=== PATIENT | male | born 1955 | race Caucasian/White ===

== ENCOUNTER 2016-09-16 14:46 | Emergency (ER) | payer OTHER ==
[~2016-09-16] VITALS: Ht 170.2 cm; Wt 70.3 kg
[~2016-09-16 14:46] MED LIST: ADVIL PM 38 MG-1 TAB PO; ALPRAZOLAM0.5 MG PO; AMBIEN5 M1 PO; AMLODIPINE BES2.5 MG PO; AMLODIPINE BESYL5 M1 PO; AMLODIPINE10 MG PO; ASPIR 8181 MG PO; BACLOFEN10 M1 PO; BD INSULIN; BENTYL20 M1 PO; BYSTOLIC10 M1 PO; BYSTOLIC10 MG PO; BYSTOLIC20 M1 PO; BYSTOLIC20 MG PO; CALCITRIOL0.25 MCG PO; CAPTOPRIL25 MG PO; CAPTOPRIL50 MG PO; CIPROFLOXACIN500 M2 PO; CITRATE OF MAG300 ML PO; CONZIP100 MG PO; CREON DR 36,001 EACH PO; DICLOFENAC SODI75 M2 PO; DILAUDID2 MG PO; FLEXERIL 10MG T10 MG PO; FLEXERIL10 MG PO; FREESTYLE; FREESTYLE LITE TEST; GABAPENTIN100 M2 PO; GABAPENTIN300 M2 PO; GABAPENTIN300 MG PO; GOLYTELY PACKE1 EACH PO; HUMULIN 70100 UNIT/1 SC; IBU600 MG PO; LIDODERM 5% PAT1 PAT TOP; LOMOTIL 0.025 M1 TAB PO; MAGNESIUM CITR296 ML PO; MAGNESIUM OXID400 MG PO; MAGNESIUM400 M1 PO; MOBIC15 M1 PO; MOTRIN 600 MG600 MG PO; MOTRIN800 MG PO; NORCO 325 MG-51 TAB PO; NORVASC 5MG TAB5 MG PO; NORVASC10 M1 PO; NOVOLIN 70100 UNIT/1 SQ; NOVOLIN R100 UNIT/1 SQ; ORPHENADRINE C100 MG PO; PERCOCET 325 MG1 TA2 PO; PERCOCET 5-3251 EACH PO; POTASSIUM CHLO20 ME4 PO; PREDNISONE 20MG20 MG PO; PRILOSEC OTC20 M1 PO; PRILOSEC OTC20 MG PO; PROCHLORPERAZIN25 M1 PR; PROCHLORPERAZIN25 MG PR; PYRIDIUM100 M1 PO; REGLAN10 M1 PO; REGLAN10 MG PO; SKELAXIN800 MG PO; TESSALON PERLE100 MG PO; TIZANIDINE4 MG PO; TOPROL XL25 M1 PO; TORADOL10 MG PO; TRAMADOL HCL50 M1 PO; TRAMADOL50 MG PO; TYLENOL WITH C1 EACH PO; VICODIN5-300 PO; VITAMIN D1000 IU PO; VOLTAREN100 GM TOP; ZITHROMAX Z PA250 MG PO; ZOFRAN 4 MG TABL4 MG PO; ZOFRAN ODT4 M1 SL; ZOFRAN ODT4 MG PO; ZOFRAN4 M2 SL; ZOFRAN4 MG PO; [UNRECOGNIZED DRUG - CODE] PO; [UNRECOGNIZED DRUG - CODE] SC; [UNRECOGNIZED DRUG - OTHER]
--- NOTE | 2016-09-16 16:24 | ED GI/GU/ABDOMINAL COMPLAINT ---
History of Present Illness General Chief Complaint: Abdominal Pain/Flank Pain Stated Complaint: ABD PAIN Vital Signs & Intake/Output Vital Signs & Intake/Output Vital Signs Date Time Temp Pulse Resp B/P Pulse O2 O2 Flow FiO2 Ox Delivery Rate 09/16 1451 95.9 98 20 160/105 98 Room Air Allergies Coded Allergies: NO KNOWN ALLERGIES (06/22/16) Reconcile Medications Alprazolam 0.25 MG TABLET 1 TAB PO TID ANXIETY (Reported) Amlodipine Besylate 10 MG TABLET 1 TAB PO DAILY HEART HEALTH (Reported) Aspirin (Ecotrin) 81 MG TABLET.DR 1 TAB PO DAILY HEART HEALTH (Reported) Calcitriol 0.25 MCG CAPSULE 1 CAP PO DAILY BONES (Reported) Captopril 50 MG TAB 1 TAB PO BID BP (Reported) Cholecalciferol (Vitamin D3) 1,000 IU TAB 1,000 IU PO DAILY VITAMIN D SUPPLEMET (Reported) Diclofenac Sodium (Voltaren) 100 GM GEL..GRAM. 1 GM TOP 4 TIMES/DAY ARTHRITIS (Reported) apply to affected area(s) Dicyclomine HCl (Bentyl) 20 MG TABLET 1 TAB PO TID ABD PAIN Gabapentin 300 MG CAPSULE 1 CAP PO TID NERVE PAIN/MENTAL HEALTH (Reported) Humulin 70-30 (Humulin 70-30 Vial) 100 UNIT/1 ML VIAL 10 UNITS SC QAM AC Diabetes (Reported) Humulin 70-30 (Humulin 70-30 Vial) 100 UNIT/1 ML VIAL 12 UNIT SC QPM AC DIABETES (Reported) Lipase/Protease/Amylase (Kajal Roldan 36,000 Units Capsule) 1 EACH CAPSULE. 1 CAP PO TID PANCREASE (Reported) Magnesium Oxide (Magnesium) 400 MG CAPSULE 1 CAP PO DAILY MAG Metoclopramide HCl (Reglan) 10 MG TABLET 1 TAB PO TID PRN NAUSEA 30 minutes before meals and bedtime Nebivolol HCl (Bystolic) 20 MG TABLET 1 TAB PO DAILY BP (Reported) Omeprazole Magnesium (Prilosec Otc) 20 MG TABLET.DR 1 TAB PO DAILY STOMACH PAIN Ondansetron (Zofran Odt) 4 MG TAB.RAPDIS 1 TAB SL TID PRN nausea Prochlorperazine 25 MG SUPP.RECT 1 SUPP HI PRN N/V (Reported) Tramadol HCl 50 MG TABLET 1 TAB PO BIDP PRN PAIN (Reported) Zolpidem Tartrate (Ambien) 5 MG TABLET 1 TAB PO QPMP insomnia May repeat in 45 minutes if no effect on sleep Triage Note: 61 REPORTS N/V X 2-3 DAYS. STATES HE WENT TO DR JENKINS'S OFFICE AND WAS TOLD TO COME TO ED. AFEBRILE. 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 History of MRSA: No History of VRE: No History of CDIFF: No Surgical History Surgical History: appendectomy, DEVIATED SEPTUM,HERNIA Psychosocial History Who do you live with Patient/Self Services at Home None What is your primary language Welsh Tobacco Use: Current Daily Use Daily Tobacco Use Amount/Type: =< 4 Cigarettes daily Family History Family History, If Any: FATHER FH: diabetes mellitus FH: renal failure MOTHER FH: hyperlipidemia Relation not specified for: FH: CHF (congestive heart failure) Departure Departure Condition: Stable Referrals: BECKA ETIENNE MD (PCP/Family) Departure Forms: Customer Survey General Discharge Information
--- NOTE | 2016-09-16 16:33 | ED GI/GU/ABDOMINAL COMPLAINT ---
See Addendum History of Present Illness General Chief Complaint: Abdominal Pain/Flank Pain Stated Complaint: ABD PAIN Source: patient Exam Limitations: no limitations Vital Signs & Intake/Output Vital Signs & Intake/Output Vital Signs Date Time Temp Pulse Resp B/P Pulse O2 O2 Flow FiO2 Ox Delivery Rate 09/16 1832 98 Room Air Room Air 09/16 1832 98.2 80 16 148/88 98 Room Air Room Air 09/16 1720 97.9 84 20 168/100 09/16 1451 95.9 98 20 160/105 98 Room Air Allergies Coded Allergies: NO KNOWN ALLERGIES (06/22/16) Reconcile Medications Alprazolam 0.25 MG TABLET 1 TAB PO TID ANXIETY (Reported) Amlodipine Besylate 10 MG TABLET 1 TAB PO DAILY HEART HEALTH (Reported) Aspirin (Ecotrin) 81 MG TABLET.DR 1 TAB PO DAILY HEART HEALTH (Reported) Calcitriol 0.25 MCG CAPSULE 1 CAP PO DAILY BONES (Reported) Captopril 50 MG TAB 1 TAB PO BID BP (Reported) Cholecalciferol (Vitamin D3) 1,000 IU TAB 1,000 IU PO DAILY VITAMIN D SUPPLEMET (Reported) Diclofenac Sodium (Voltaren) 100 GM GEL..GRAM. 1 GM TOP 4 TIMES/DAY ARTHRITIS (Reported) apply to affected area(s) Dicyclomine HCl (Bentyl) 20 MG TABLET 1 TAB PO TID ABD PAIN Gabapentin 300 MG CAPSULE 1 CAP PO TID NERVE PAIN/MENTAL HEALTH (Reported) Humulin 70-30 (Humulin 70-30 Vial) 100 UNIT/1 ML VIAL 10 UNITS SC QAM AC Diabetes (Reported) Humulin 70-30 (Humulin 70-30 Vial) 100 UNIT/1 ML VIAL 12 UNIT SC QPM AC DIABETES (Reported) Lipase/Protease/Amylase (Kajal Roldan 36,000 Units Capsule) 1 EACH CAPSULE. 1 CAP PO TID PANCREASE (Reported) Magnesium Oxide (Magnesium) 400 MG CAPSULE 1 CAP PO DAILY MAG Metoclopramide HCl (Reglan) 10 MG TABLET 1 TAB PO TID PRN NAUSEA 30 minutes before meals and bedtime Nebivolol HCl (Bystolic) 20 MG TABLET 1 TAB PO DAILY BP (Reported) Omeprazole Magnesium (Prilosec Otc) 20 MG TABLET. 1 TAB PO DAILY STOMACH PAIN Ondansetron (Zofran Odt) 4 MG TAB.RAPDIS 1 TAB SL TID PRN nausea Prochlorperazine 25 MG SUPP.RECT 1 SUPP [place] PRN N/V (Reported) Tramadol HCl 50 MG TABLET 1 TAB PO BIDP PRN PAIN (Reported) Zolpidem Tartrate (Ambien) 5 MG TABLET 1 TAB PO QPMP insomnia May repeat in 45 minutes if no effect on sleep Triage Note: 61 REPORTS N/V X 2-3 DAYS. STATES HE WENT TO DR JENKINS'S OFFICE AND WAS TOLD TO COME TO ED. AFEBRILE. Triage Nurses Notes Reviewed? yes Onset: Abrupt Duration: day(s):, constant Timing: recent history Quality/Severity: moderate, sharpness, severe Location: generalized abdomen Radiation: no radiation Activities at Onset: none Prior Abdominal Problems: none No Modifying Factors: none HPI: 61-year-old male comes into emergency room with complaints of general abdominal pain. Patient has been seen here many times in the same symptoms. Denies any fever. Some intermittent vomiting. Denies any other associated symptoms. Nothing seems to make them better or worse. (SINDHU RUBIO) Past History Travel History Traveled to [place] past 21 day No Medical History Any Pertinent Medical History? 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 No (SINDHU RUBIO) Review of Systems Review of Systems Constitutional: Reports: no symptoms. EENTM: Reports: no symptoms. Respiratory: Reports: no symptoms. Cardiovascular: Reports: no symptoms. GI: Reports: see HPI. Genitourinary: Reports: no symptoms. Musculoskeletal: Reports: no symptoms. Skin: Reports: no symptoms. Neurological/Psychological: Reports: no symptoms. Hematologic/Endocrine: Reports: no symptoms. Immunologic/Allergic: Reports: no symptoms. All Other Systems: Reviewed and Negative (SINDHU RUBIO) Physical Exam Physical Exam General Appearance: well developed/nourished, no apparent distress, alert Head: atraumatic, normal appearance Eyes: Bilateral: normal appearance. Ears, Nose, Throat, Mouth: hearing grossly normal, moist mucous membrane Neck: normal inspection, full range of motion Respiratory: normal breath sounds, no respiratory distress Cardiovascular: regular rate/rhythm Gastrointestinal: normal bowel sounds, soft, tenderness Back: normal inspection, normal range of motion Extremities: normal range of motion Neurologic/Psych: awake, alert, oriented x 3, normal gait, normal mood/affect Skin: intact, normal color Core Measures ACS in differential dx? No Severe Sepsis Present: No Septic Shock Present: No (SINDHU RUBIO) Progress Differential Diagnosis: AAA, AMI, appendicitis, biliary colic, bowel obstruction , colon cancer, cholecystitis, diverticulitis, gastritis, hepatitis, hernia, hemorrhoids, ischemic bowel, orchitis, pancreatitis, prostatitis, peptic ulcer, PUD/GERD, perforated viscous, pyelonephritis, SBO, ureterolithiasis, urinary retention, urethritis, UTI/pyelo Plan of Care: Orders Procedure Date/time Status URINALYSIS 09/16 1631 Complete LIPASE 09/16 1631 Complete COMPREHENSIVE METABOLIC PANEL 09/16 1631 Complete CBC WITHOUT DIFFERENTIAL 09/16 1631 Complete AMYLASE 09/16 1631 Complete Laboratory Tests 09/16/16 1640: Urine Color YEL, Urine Clarity CLEAR, Urine pH 7.0, Ur Specific [place] 1.015, Urine Protein TRACE H, Urine Ketones NEG, Urine Nitrite NEG, Urine Bilirubin NEG, Urine Urobilinogen 0.2, Ur Leukocyte Esterase NEG, Ur Microscopic SEDIMENT EXAMINED, Urine RBC RARE, Ur Epithelial Cells RARE, Urine Hemoglobin NEG, Urine Glucose 500 H 09/16/16 1633: Anion Gap 13, Estimated GFR 32 L, BUN/Creatinine Ratio 11.4, Glucose 303 H, Calcium 9.7, Total Bilirubin 0.6, AST 26, ALT 27, Alkaline Phosphatase 91, Total Protein 7.3, Albumin 4.4, Globulin 2.9, Albumin/Globulin Ratio 1.5, Amylase 49, Lipase 42, CBC w Diff NO MAN DIFF REQ, RBC 4.40 L, MCV 92.2, MCH 31.4 H, RDW 13.0, MPV 8.4, Gran % 74.0, Lymphocytes % 14.9 L, Monocytes % 9.4 H, Eosinophils % 1.3, Basophils % 0.4, Absolute Granulocytes 5.4, Absolute Lymphocytes 1.1 L, Absolute Monocytes 0.7 H, Absolute Eosinophils 0.1, Absolute Basophils 0, PUBS MCHC 34.0 Diagnostic Imaging: Viewed by Me: CT Scan. Discussed w/RAD: CT Scan. Radiology Impression: EXAM TYPE: CAT - CT ABD & PELVIS W/O IV CONTRAS EXAMINATION: CT ABDOMEN AND PELVIS WITHOUT CONTRAST CLINICAL INFORMATION: Abdominal pain COMPARISON: CT scan abdomen pelvis 08/09/2016 TECHNIQUE: Multidetector volumetric imaging was performed from the superior aspect of the liver through the pubic symphysis. Sagittal and coronal reformatted images were obtained on the technologist's workstation. No oral or intravenous contrast DLP: 271.91 mGy-cm. FINDINGS: LUNG BASES: The visualized lung bases are unremarkable. LIVER, GALLBLADDER, AND BILIARY TREE: The liver is normal in size, shape, and attenuation. No focal hepatic lesion or biliary ductal dilatation is present. The gallbladder is unremarkable with no evidence of radiopaque gallstones, gallbladder wall thickening, or obvious pericholecystic inflammatory changes. PANCREAS: Numerous coarse calcifications of the pancreatic head and uncinate process consistent with chronic pancreatitis. The body and tail the pancreas is atrophic. No acute inflammation. No edema or fluid collections. SPLEEN: Unremarkable. ADRENAL GLANDS: Unremarkable. KIDNEYS AND URETERS: Numerous bilateral renal cysts with multiple small parenchymal calcifications consistent with polycystic kidney disease. No hydronephrosis. No ureteral stone. BLADDER: Unremarkable. GASTROINTESTINAL TRACT: No acute change. No bowel obstruction. No bowel wall thickening or edema. Moderate volume of stool throughout colon. The appendix not seen. No inflammatory change of mesentery. Small bowel loops are unremarkable. ABDOMINAL WALL: Small fat-containing umbilical hernia. LYMPH NODES : Normal. VASCULAR: Unremarkable. PELVIC VISCERA: Unremarkable. OSSEOUS STRUCTURES: Degenerative change of the spine with endplate spurs and disc height narrowing facet joint arthrosis. Mild joint narrowing of the hips bilateral. IMPRESSION: No acute change of the abdomen or pelvis. Coarse calcifications of the pancreas consistent with sequela from chronic pancreatitis without evidence of an acute inflammation. Polycystic kidney disease. DICTATED BY: ARTHUR ARMSTRONG MD DATE/TIME DICTATED:09/16/16 1723 Initial ED EKG: none Comments: 09/16/2016 6:17:15 PM Patient initially said when he was here that he was going to hurt himself because he started the pain. Patient reports that he is not serious about this and has no intention of hurting himself or anybody else. Patient's labs are normal baseline. Patient seen by Dr. Almanza. Patient has a normal affect. Patient shows good insight. 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 I have also reviewed all the pertinent lab results and diagnostic results. I agree with the findings and the plan of care as documented in the PA's/ADJUNCT WRITING INSTRUCTOR's documentation. [] I have reviewed the ED Record and agree with the PA's/ADJUNCT WRITING INSTRUCTOR's documentation. [] Additions or exceptions (if any) to the PAs/ADJUNCT WRITING INSTRUCTOR's note and plan are summarized below: [] 09/16/16 6:30 PM I have seen and personally examined the patient and I agree with the PAs evaluation. Now at 6:23 PM he is awake alert oriented 3. He denies suicidal ideation or significant depression. He has contracted with me for safety and said he will return to the emergency department should he feel worse in any way. No crisis consult was obtained based on my evaluation. (ARTEMIO ALMANZA DO
[2016-09-16 16:45] LABS: ABSOLUTE BASOPHIL COUNT 0 /CUMM (0.0-0.2); ABSOLUTE EOSINOPHIL COUNT 0.1 /CUMM (0.0-0.7); ABSOLUTE GRANULOCYTE CT 5.4 /CUMM (1.4-6.5); ABSOLUTE LYMPH COUNT 1.1 /CUMM (1.2-3.4); ABSOLUTE MONOCYTE COUNT 0.7 /CUMM (0.10-0.60); BASOPHIL % 0.4 % (0.0-2.0); EOSINOPHIL % 1.3 % (0-5); HEMATOCRIT 40.6 % (42-52); MEAN CORPUSCULAR HGB 31.4 PG (27.0-31.0); MEAN CORPUSCULAR VOLUME 92.2 FL (80.0-94.0); MEAN PLATELET VOLUME 8.4 FL (7.4-10.4); PLATELET COUNT 216 /CUMM (130-400); WHITE BLOOD CELL COUNT 7.2 /CUMM (4.8-10.8)
--- NOTE | 2016-09-16 17:33 | CT SCAN REPORT ---
EXAMINATION: CT ABDOMEN AND PELVIS WITHOUT CONTRAST CLINICAL INFORMATION: Abdominal pain COMPARISON: CT scan abdomen pelvis 08/09/2016 TECHNIQUE: Multidetector volumetric imaging was performed from the superior aspect of the liver through the pubic symphysis. Sagittal and coronal reformatted images were obtained on the technologist's workstation. No oral or intravenous contrast DLP: 271.91 mGy-cm. FINDINGS: LUNG BASES: The visualized lung bases are unremarkable. LIVER, GALLBLADDER, AND BILIARY TREE: The liver is normal in size, shape, and attenuation. No focal hepatic lesion or biliary ductal dilatation is present. The gallbladder is unremarkable with no evidence of radiopaque gallstones, gallbladder wall thickening, or obvious pericholecystic inflammatory changes. PANCREAS: Numerous coarse calcifications of the pancreatic head and uncinate process consistent with chronic pancreatitis. The body and tail the pancreas is atrophic. No acute inflammation. No edema or fluid collections. SPLEEN: Unremarkable. ADRENAL GLANDS: Unremarkable. KIDNEYS AND URETERS: Numerous bilateral renal cysts with multiple small parenchymal calcifications consistent with polycystic kidney disease. No hydronephrosis. No ureteral stone. BLADDER: Unremarkable. GASTROINTESTINAL TRACT: No acute change. No bowel obstruction. No bowel wall thickening or edema. Moderate volume of stool throughout colon. The appendix not seen. No inflammatory change of mesentery. Small bowel loops are unremarkable. ABDOMINAL WALL: Small fat-containing umbilical hernia. LYMPH NODES: Normal. VASCULAR: Unremarkable. PELVIC VISCERA: Unremarkable. OSSEOUS STRUCTURES: Degenerative change of the spine with endplate spurs and disc height narrowing facet joint arthrosis. Mild joint narrowing of the hips bilateral. IMPRESSION: No acute change of the abdomen or pelvis. Coarse calcifications of the pancreas consistent with sequela from chronic pancreatitis without evidence of an acute inflammation. Polycystic kidney disease.
[2016-09-16 18:33] VITALS: BP 148/88
== END 2016-09-16 18:32 ==
LOC: ERH 14:46
PROVIDERS: Physician Assistant Medical
DX: R10.84 Generalized abdominal pain (principal)
CPT/HCPCS: 74176; 81001; J3101

== ENCOUNTER 2016-09-23 18:34 | Emergency (ER) | payer OTHER ==
[~2016-09-23] VITALS: Ht 170.2 cm; Wt 70.3 kg
--- NOTE | 2016-09-23 19:33 | ED GI/GU/ABDOMINAL COMPLAINT ---
History of Present Illness General Chief Complaint: Abdominal Pain/Flank Pain Stated Complaint: ABD PAIN Source: patient Exam Limitations: no limitations Vital Signs & Intake/Output Vital Signs & Intake/Output Vital Signs Date Time Temp Pulse Resp B/P Pulse O2 O2 Flow FiO2 Ox Delivery Rate 09/23 2050 98.3 75 20 169/97 98 Room Air 09/23 1906 98.5 83 20 174/100 97 Room Air Allergies Coded Allergies: NO KNOWN ALLERGIES (09/23/16) Reconcile Medications Alprazolam 0.25 MG TABLET 1 TAB PO TID ANXIETY (Reported) Amlodipine Besylate 10 MG TABLET 1 TAB PO DAILY HEART HEALTH (Reported) Aspirin (Ecotrin) 81 MG TABLET.DR 1 TAB PO DAILY HEART HEALTH (Reported) Calcitriol 0.25 MCG CAPSULE 1 CAP PO DAILY BONES (Reported) Captopril 50 MG TAB 1 TAB PO BID BP (Reported) Cholecalciferol (Vitamin D3) 1,000 IU TAB 1,000 IU PO DAILY VITAMIN D SUPPLEMET (Reported) Diclofenac Sodium (Voltaren) 100 GM GEL..GRAM. 1 GM TOP 4 TIMES/DAY ARTHRITIS (Reported) apply to affected area(s) Dicyclomine HCl (Bentyl) 20 MG TABLET 1 TAB PO TID ABD PAIN Gabapentin 300 MG CAPSULE 1 CAP PO TID NERVE PAIN/MENTAL HEALTH (Reported) Humulin 70-30 (Humulin 70-30 Vial) 100 UNIT/1 ML VIAL 10 UNITS SC QAM AC Diabetes (Reported) Humulin 70-30 (Humulin 70-30 Vial) 100 UNIT/1 ML VIAL 12 UNIT SC QPM AC DIABETES (Reported) Lipase/Protease/Amylase (Kajal Roldan 36,000 Units Capsule) 1 EACH CAPSULE.DR 1 CAP PO TID PANCREASE (Reported) Magnesium Oxide (Magnesium) 400 MG CAPSULE 1 CAP PO DAILY MAG Metoclopramide HCl (Reglan) 10 MG TABLET 1 TAB PO TID PRN NAUSEA 30 minutes before meals and bedtime Nebivolol HCl (Bystolic) 20 MG TABLET 1 TAB PO DAILY BP (Reported) Omeprazole Magnesium (Prilosec Otc) 20 MG TABLET.DR 1 TAB PO DAILY STOMACH PAIN Omeprazole Magnesium (Prilosec Otc) 20 MG TABLET.DR 1 TAB PO BID GASTRITIS Ondansetron (Zofran Odt) 4 MG TAB.RAPDIS 1 TAB SL TID PRN nausea Prochlorperazine 25 MG SUPP.RECT 1 SUPP PA PRN N/V (Reported) Sucralfate (Carafate) 1 GRAM TABLET 1 TAB PO 4 TIMES/DAY GASTRITIS FOR GASTRITIS.... TAKE 30 MINUTES AFTER YOUR REGULAR MEDICATIONS Tramadol HCl 50 MG TABLET 1 TAB PO BIDP PRN PAIN (Reported) Zolpidem Tartrate (Ambien) 5 MG TABLET 1 TAB PO QPMP insomnia May repeat in 45 minutes if no effect on sleep Triage Note: TRIAGE: PT TO ER C/C PAIN TO "MY STOMACH AGAIN, THEY DON'T SEEM TO DO NOTHING". ONSET OF PAIN THIS MORNING, CONSTANT ALL DAY. +N/V, DENIES DIARRHEA. LNBM EARLIER TODAY. Triage Nurses Notes Reviewed? yes Onset: Gradual Duration: week(s):, waxing and waning Timing: recent history Quality/Severity: cramping Location: epigastric Radiation: no radiation Activities at Onset: none Prior Abdominal Problems: similar symptoms Modifying Factors: Improves With: rest. Associated Symptoms: abdominal pain HPI: 61 yo gentleman with chronic pancreatitis, chronic abdominal pain, presents for continued mid epigastric abdominal pain and nausea. No vomiting, diarrhea, chest pain, shortness of breath. 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 he is otherwise well. Past History Travel History Traveled to [place] past 21 day No Medical History Any Pertinent Medical History? 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 No Review of Systems Review of Systems Constitutional: Reports: no symptoms. EENTM: Reports: no symptoms. Respiratory: Reports: no symptoms. Cardiovascular: Reports: no symptoms. GI: Reports: no symptoms. Genitourinary: Reports: no symptoms. Musculoskeletal: Reports: no symptoms. Skin: Reports: no symptoms. Neurological/Psychological: Reports: no symptoms. Hematologic/Endocrine: Reports: no symptoms. Immunologic/Allergic: Reports: no symptoms. All Other Systems: Reviewed and Negative Physical Exam Physical Exam General Appearance: well developed/nourished, no apparent distress Head: atraumatic, normal appearance Eyes: Bilateral: normal appearance. Ears, Nose, Throat, Mouth: hearing grossly normal, moist mucous membrane Neck: normal inspection, supple, full range of motion Respiratory: normal breath sounds, chest non-tender, no respiratory distress, quiet respiration, lungs clear Gastrointestinal: normal bowel sounds, soft, minimal mid epigastric tenderness to palpation Back: normal inspection Extremities: normal range of motion, evidence of injury Neurologic/Psych: no motor/sensory deficits, awake, alert, oriented x 3 Skin: intact, normal color, warm/dry Core Measures ACS in differential dx? No Severe Sepsis Present: No Septic Shock Present: No Progress Differential Diagnosis: gastritis, reflux vs pancreatitis vs other. Plan of Care: Orders Procedure Date/time Status TROPONIN LEVEL 09/23 1915 Complete LIPASE 09/23 1915 Complete HEPATIC FUNCTION PANEL 09/23 1915 Complete CBC WITHOUT DIFFERENTIAL 09/23 1915 Complete BASIC METABOLIC PANEL 09/23 1915 Complete AMYLASE 09/23 1915 Complete EKG 09/23 1915 Active Laboratory Tests 09/23/161936: Anion Gap 14, Estimated GFR 31 L, BUN/Creatinine Ratio 10.9, Glucose 212 H, Calcium 10.7 H, Total Bilirubin 0.6, Direct Bilirubin 0.3, AST 29, ALT 40, Alkaline Phosphatase 83, Troponin I < 0.01, Total Protein 7.4, Albumin 4.5, Amylase 44, Lipase 27, CBC w Diff NO MAN DIFF REQ, RBC 4.49 L, MCV 92.4, MCH 31.2 H, RDW 13.0, MPV 8.8, Gran % 82.6 H, Lymphocytes % 9.3 L, Monocytes % 7.3, Eosinophils % 0.7, Basophils % 0.1, Absolute Granulocytes 7.4 H, Absolute Lymphocytes 0.8 L, Absolute Monocytes 0.7 H, Absolute Eosinophils 0.1, Absolute Basophils 0, PUBS MCHC 33.7 Diagnostic Imaging: Viewed by Me: CT Scan. Discussed w/RAD: CT Scan. Radiology Impression: ABD/PELVIC CT 09/16... CALCIFICATIONS C/W CHRONIC PANCREATITIS. Initial ED EKG: normal axis, normal intervals, normal p-waves, normal QRS complex, normal sinus rhythm Comments: PATIENT: MANJU ERICKSON PRESENT AGE: 61 PATIENT ACCOUNT NO: [id number] : 59 LOCATION: [facility] ORDERING PHYSICIAN: SINDHU PÉREZ SERVICE DATE: 09/16/16 EXAM TYPE: CAT - CT ABD & PELVIS W/O IV CONTRAS EXAMINATION: CT ABDOMEN AND PELVIS WITHOUT CONTRAST CLINICAL INFORMATION: Abdominal pain COMPARISON: CT scan abdomen pelvis 08/09/2016 TECHNIQUE: Multidetector volumetric imaging was performed from the superior aspect of the liver through the pubic symphysis. Sagittal and coronal reformatted images were obtained on the technologist's workstation. No oral or intravenous contrast DLP: 271.91 mGy-cm. FINDINGS: LUNG BASES: The visualized lung bases are unremarkable. LIVER, GALLBLADDER, AND BILIARY TREE: The liver is normal in size, shape, and attenuation. No focal hepatic lesion or biliary ductal dilatation is present. The gallbladder is unremarkable with no evidence of radiopaque gallstones, gallbladder wall thickening, or obvious pericholecystic inflammatory changes. PANCREAS: Numerous coarse calcifications of the pancreatic head and uncinate process consistent with chronic pancreatitis. The body and tail the pancreas is atrophic. No acute inflammation. No edema or fluid collections. SPLEEN: Unremarkable. ADRENAL GLANDS: Unremarkable. KIDNEYS AND URETERS: Numerous bilateral renal cysts with multiple small parenchymal calcifications consistent with polycystic kidney disease. No hydronephrosis. No ureteral stone. BLADDER: Unremarkable. GASTROINTESTINAL TRACT: No acute change. No bowel obstruction. No bowel wall thickening or edema. Moderate volume of stool throughout colon. The appendix not seen. No inflammatory change of mesentery. Small bowel loops are unremarkable. ABDOMINAL WALL: Small fat-containing umbilical hernia. LYMPH NODES: Normal. VASCULAR: Unremarkable. PELVIC VISCERA: Unremarkable. OSSEOUS STRUCTURES: Degenerative change of the spine with endplate spurs and disc height narrowing facet joint arthrosis. Mild joint narrowing of the hips bilateral. IMPRESSION: No acute change of the abdomen or pelvis. Coarse calcifications of the pancreas consistent with sequela from chronic pancreatitis without evidence of an acute inflammation. Polycystic kidney disease. DICTATED BY: ARTHUR ARMSTRONG MD DATE/TIME DICTATED:09/16/161722 BI TESTER:VY DATE/TIME TRANSCRIBED:09/16/161722 CONFIDENTIAL, DO NOT COPY WITHOUT APPROPRIATE AUTHORIZATION. <Electronically signed in Other Vendor System> SIGNED BY: ARTHUR ARMSTRONG MD 09/16/161732 Departure Departure Disposition: HOME OR SELF CARE Condition: Stable Clinical Impression Primary Impression: Chronic pancreatitis Secondary Impressions: Abdominal pain, Gastritis Referrals: JAIMIE HARRIS,BECKA Lemus (PCP/Family) Departure Forms: Customer Survey General Discharge Information Prescriptions: Current Visit Scripts Omeprazole Magnesium (Prilosec Otc) 1 TAB PO BID #60 TAB Ref 1 Sucralfate (Carafate) 1 TAB PO 4 TIMES/DAY #120 TAB Ref 1 FOR GASTRITIS.... TAKE 30 MINUTES AFTER YOUR REGULAR MEDICATIONS Comments 09/23/16, 9:38PM... pt feels better after gi cocktail... will send home with prilosec bid and carafate... pt will follow up with dr. marquez next week.
[2016-09-23 19:50] LABS: ABSOLUTE BASOPHIL COUNT 0 /CUMM (0.0-0.2); ABSOLUTE EOSINOPHIL COUNT 0.1 /CUMM (0.0-0.7); ABSOLUTE GRANULOCYTE CT 7.4 /CUMM (1.4-6.5); ABSOLUTE LYMPH COUNT 0.8 /CUMM (1.2-3.4); ABSOLUTE MONOCYTE COUNT 0.7 /CUMM (0.10-0.60); BASOPHIL % 0.1 % (0.0-2.0); EOSINOPHIL % 0.7 % (0-5); GRANULOCYTE % 82.6 % (42.2-75.2); HEMATOCRIT 41.5 % (42-52); MEAN CORPUSCULAR HGB 31.2 PG (27.0-31.0); MEAN CORPUSCULAR HGB CONC 33.7 G/DL (33.0-37.0); MEAN CORPUSCULAR VOLUME 92.4 FL (80.0-94.0); MEAN PLATELET VOLUME 8.8 FL (7.4-10.4); PLATELET COUNT 213 /CUMM (130-400); RED BLOOD CELL CT 4.49 /CUMM (4.70-6.10)
[2016-09-23] MEDS ORDERED: CARAFATE1 G1 PO (21:37)
[2016-09-23] MEDS ORDERED: PRILOSEC OTC20 M1 PO (21:37)
[2016-09-23 21:57] VITALS: BP 155/90
== END 2016-09-23 21:59 ==
LOC: ERH 18:34
PROVIDERS: Pediatrics
DX: K86.1 Other chronic pancreatitis (principal); K52.9 Noninfective gastroenteritis and colitis, unspecified
CPT/HCPCS: 93005; 93010; 96374; 96375; J0131; J1885

== ENCOUNTER 2016-09-24 11:26 | Emergency (ER) | payer OTHER ==
[~2016-09-24] VITALS: Ht 170.2 cm; Wt 70.3 kg
[~2016-09-24 11:26] MED LIST changes: +CARAFATE1 G1 PO
[2016-09-24 11:39] VITALS: BP 154/99
--- NOTE | 2016-09-24 12:27 | ED GI/GU/ABDOMINAL COMPLAINT ---
History of Present Illness General Chief Complaint: Abdominal Pain/Flank Pain Stated Complaint: PT STATES "I NEED TO BE ADMITTED" Source: patient Exam Limitations: no limitations Vital Signs & Intake/Output Vital Signs & Intake/Output Vital Signs Date Time Temp Pulse Resp B/P Pulse O2 O2 Flow FiO2 Ox Delivery Rate 09/24 1139 98.1 85 20 154/99 97 Room Air Allergies Coded Allergies: NO KNOWN ALLERGIES (09/24/16) Reconcile Medications Alprazolam 0.25 MG TABLET 1 TAB PO TID ANXIETY (Reported) Amlodipine Besylate 10 MG TABLET 1 TAB PO DAILY HEART HEALTH (Reported) Aspirin (Ecotrin) 81 MG TABLET.DR 1 TAB PO DAILY HEART HEALTH (Reported) Calcitriol 0.25 MCG CAPSULE 1 CAP PO DAILY BONES (Reported) Captopril 50 MG TAB 1 TAB PO BID BP (Reported) Cholecalciferol (Vitamin D3) 1,000 IU TAB 1,000 IU PO DAILY VITAMIN D SUPPLEMET (Reported) Diclofenac Sodium (Voltaren) 100 GM GEL..GRAM. 1 GM TOP 4 TIMES/DAY ARTHRITIS (Reported) apply to affected area(s) Dicyclomine HCl (Bentyl) 20 MG TABLET 1 TAB PO TID ABD PAIN Gabapentin 300 MG CAPSULE 1 CAP PO TID NERVE PAIN/MENTAL HEALTH (Reported) Humulin 70-30 (Humulin 70-30 Vial) 100 UNIT/1 ML VIAL 10 UNITS SC QAM AC Diabetes (Reported) Humulin 70-30 (Humulin 70-30 Vial) 100 UNIT/1 ML VIAL 12 UNIT SC QPM AC DIABETES (Reported) Lipase/Protease/Amylase (Kajal Roldan 36,000 Units Capsule) 1 EACH CAPSULE.DR 1 CAP PO TID PANCREASE (Reported) Magnesium Oxide (Magnesium) 400 MG CAPSULE 1 CAP PO DAILY MAG Metoclopramide HCl (Reglan) 10 MG TABLET 1 TAB PO TID PRN NAUSEA 30 minutes before meals and bedtime Nebivolol HCl (Bystolic) 20 MG TABLET 1 TAB PO DAILY BP (Reported) Omeprazole Magnesium (Prilosec Otc) 20 MG TABLET.DR 1 TAB PO DAILY STOMACH PAIN Omeprazole Magnesium (Prilosec Otc) 20 MG TABLET.DR 1 TAB PO BID GASTRITIS Ondansetron (Zofran Odt) 4 MG TAB.RAPDIS 1 TAB SL TID PRN nausea Prochlorperazine 25 MG SUPP.RECT 1 SUPP NH PRN N/V (Reported) Sucralfate (Carafate) 1 GRAM TABLET 1 TAB PO 4 TIMES/DAY GASTRITIS FOR GASTRITIS.... TAKE 30 MINUTES AFTER YOUR REGULAR MEDICATIONS Tramadol HCl 50 MG TABLET 1 TAB PO BIDP PRN PAIN (Reported) Zolpidem Tartrate (Ambien) 5 MG TABLET 1 TAB PO QPMP insomnia May repeat in 45 minutes if no effect on sleep Triage Note: TRIAGE: PT TO ER C/C "I'VE BEEN THROWING UP SINCE I LEFT HERE YESTERDAY. THEY'VE GOT TO ADMIT ME THIS TIME." COMPLAINS OF N/V AND STOMACH PAIN. Triage Nurses Notes Reviewed? yes HPI: 61-year-old male arrived to triage to room 3 for evaluation of chronic abdominal pain. He was seen in the emergency department earlier this morning by Dr. Carlos. He was given IV fluids, Protonix and blood work which was all unrevealing. He was instructed to follow up with his primary care provider Becka Lora MD and Dr. Rick. Patient has been seen in the emergency department 3 times since the new year for the same complaints. He is concerned that something is seriously but no one is doing anything about it. Patient took Zofran prior to her arrival and is able to tolerate fluids at this time. Complaining of diarrhea but has medication at home for it. Past History Travel History Traveled to [place] past 21 day No Medical History Any Pertinent Medical History? 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 No Review of Systems Review of Systems Constitutional: Reports: no symptoms. EENTM: Reports: no symptoms. Respiratory: Reports: no symptoms. Cardiovascular: Reports: no symptoms. GI: Reports: see HPI, abdominal pain. Genitourinary: Reports: no symptoms. Musculoskeletal: Reports: no symptoms. Skin: Reports: no symptoms. Neurological/Psychological: Reports: no symptoms. Hematologic/Endocrine: Reports: no symptoms. Immunologic/Allergic: Reports: no symptoms. All Other Systems: Reviewed and Negative Physical Exam Physical Exam General Appearance: well developed/nourished, no apparent distress, alert, awake , anxious Head: atraumatic, normal appearance Eyes: Bilateral: normal appearance, PERRL, EOMI. Neck: normal inspection, supple, full range of motion Respiratory: normal breath sounds, chest non-tender, no respiratory distress, quiet respiration Cardiovascular: regular rate/rhythm, normal peripheral pulses Gastrointestinal: normal bowel sounds, soft, non-tender, no organomegaly Back: normal inspection, normal range of motion Extremities: normal range of motion, pelvis stable Neurologic/Psych: no motor/sensory deficits, awake, alert, oriented x 3, normal gait, normal mood/affect Skin: intact, normal color, warm/dry Core Measures ACS in differential dx? No Severe Sepsis Present: No Septic Shock Present: No Progress Differential Diagnosis: chronic pancreatitis Plan of Care: Patient had blood work, fluids last night with Dr. Carlos. September 13 had CAT scan abdomen and pelvis which was unrevealing showing signs of possible chronic issues but nothing acute. Discussed at length with Ralph then the to follow-up with his primary care provider and gastroenterology to make a plan based on his symptoms to prevent him coming back for repeated admissions to the emergency department. He has been very nervous and anxious which contributes to the increase in his abdominal symptoms that he is having. He feels like nothing is being done for him. I discussed this case with Dr. Mulligan and Ysable from case management. Ralph will be put in the system so that they can call him to check on him to make sure that he is following up and to assess how he feels. ACO. He has all his appropriate medications at home for nausea and diarrhea and he will follow up with his primary care providers as already directed. Initial ED EKG: none Departure Departure Time of Disposition: 1227 Disposition: HOME OR SELF CARE Condition: Stable Clinical Impression Primary Impression: Chronic abdominal pain Referrals: JAIMIE HARRIS,BECKA Lemus (PCP/Family) Additional Instructions: please follow up with Dr. Lora and Dr. Woodruff as already directed. [facility] case management staff will be contacting you this week to check on you. Departure Forms: Customer Survey General Discharge Information
== END 2016-09-24 12:41 ==
LOC: ERH 11:26
DX: R10.9 Unspecified abdominal pain (principal)

== ENCOUNTER 2016-09-30 12:20 | Emergency (ER) | payer OTHER ==
[~2016-09-30] VITALS: Ht 170.2 cm; Wt 70.3 kg
--- NOTE | 2016-09-30 12:57 | ED GI/GU/ABDOMINAL COMPLAINT ---
History of Present Illness General Chief Complaint: Abdominal Pain/Flank Pain Stated Complaint: PT HAS ABDOMINAL PAIN Source: patient, old records Exam Limitations: no limitations Vital Signs & Intake/Output Vital Signs & Intake/Output Vital Signs Date Time Temp Pulse Resp B/P Pulse O2 O2 Flow FiO2 Ox Delivery Rate 09/30 1437 97.2 88 17 172/86 100 Room Air 09/30 1229 97.2 108 18 180/90 99 Room Air Allergies Coded Allergies: NO KNOWN ALLERGIES (09/24/16) Reconcile Medications Alprazolam 0.25 MG TABLET 1 TAB PO TID ANXIETY (Reported) Amlodipine Besylate 10 MG TABLET 1 TAB PO DAILY HEART HEALTH (Reported) Aspirin (Ecotrin) 81 MG TABLET.DR 1 TAB PO DAILY HEART HEALTH (Reported) Calcitriol 0.25 MCG CAPSULE 1 CAP PO DAILY BONES (Reported) Captopril 50 MG TAB 1 TAB PO BID BP (Reported) Cholecalciferol (Vitamin D3) 1,000 IU TAB 1,000 IU PO DAILY VITAMIN D SUPPLEMET (Reported) Diclofenac Sodium (Voltaren) 100 GM GEL..GRAM. 1 GM TOP 4 TIMES/DAY ARTHRITIS (Reported) apply to affected area(s) Dicyclomine HCl (Bentyl) 20 MG TABLET 1 TAB PO TID ABD PAIN Gabapentin 300 MG CAPSULE 1 CAP PO TID NERVE PAIN/MENTAL HEALTH (Reported) Humulin 70-30 (Humulin 70-30 Vial) 100 UNIT/1 ML VIAL 10 UNITS SC QAM AC Diabetes (Reported) Humulin 70-30 (Humulin 70-30 Vial) 100 UNIT/1 ML VIAL 12 UNIT SC QPM AC DIABETES (Reported) Lipase/Protease/Amylase (Kajal Roldan 36,000 Units Capsule) 1 EACH CAPSULE. 1 CAP PO TID PANCREASE (Reported) Magnesium Oxide (Magnesium) 400 MG CAPSULE 1 CAP PO DAILY MAG Metoclopramide HCl (Reglan) 10 MG TABLET 1 TAB PO TID PRN NAUSEA 30 minutes before meals and bedtime Nebivolol HCl (Bystolic) 20 MG TABLET 1 TAB PO DAILY BP (Reported) Omeprazole Magnesium (Prilosec Otc) 20 MG TABLET.DR 1 TAB PO BID GASTRITIS Ondansetron (Zofran Odt) 4 MG TAB.RAPDIS 1 TAB SL TID PRN nausea Prochlorperazine 25 MG SUPP.RECT 1 SUPP GA PRN N/V (Reported) Sucralfate (Carafate) 1 GRAM TABLET 1 TAB PO 4 TIMES/DAY GASTRITIS FOR GASTRITIS.... TAKE 30 MINUTES AFTER YOUR REGULAR MEDICATIONS Tramadol HCl 50 MG TABLET 1 TAB PO BIDP PRN PAIN (Reported) Zolpidem Tartrate (Ambien) 5 MG TABLET 1 TAB PO QPMP insomnia May repeat in 45 minutes if no effect on sleep Triage Note: 61 Y/O MALE STATING "MY STOMACH PAINS ARE BACK". STATES HE WAS AT MRI TODAY BUT DIDNT HAVE TEST, "MY SUGAR WAS TOO LOW BECAUSE THEY TOLD ME NOT TO EAT SO THEY TOOK MY UPSTAIRS AND GAVE ME ORANGE JUICE". PT RECENTLY EVAL'D IN ED FOR SAME SYMPTOMS; STATES HE DOESNT KNOW WHAT HIS D/C INSTRUCTIONS WERE. Triage Nurses Notes Reviewed? yes HPI: Patient is a 61-year-old male presents complaining of upper abdominal pain, nausea, vomiting. Patient reports symptoms are chronic. Patient was scheduled to have an MRI this morning but when he got there his blood sugar was found to be less than 50 and the test was canceled. Patient was administered an Divehi muffin and juice. Patient reports that he did not eat or drink anything this morning due to having the test scheduled. Pain is consistent with chronic pain that patient has been evaluated in the emergency department numerous times for before this is the patient's third time this month in the emergency department for the same type of pain. Pain is currently moderate to severe. Patient had a CT scan approximately 2 weeks ago showing calcifications of his pancreas. 2 episodes of vomiting today. Patient sees Dr. Rick. Denies fevers, chills, urinary symptoms, bowel symptoms. (AIRAM PÉREZ,[place]) Past History Travel History Traveled to [place] past 21 day No Medical History Any Pertinent Medical History? 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 No ([place] BISHOP) Review of Systems Review of Systems Constitutional: Denies: chills, fever. EENTM: Reports: no symptoms. Respiratory: Denies: cough, short of breath. Cardiovascular: Denies: chest pain. GI: Reports: see HPI. Genitourinary: Reports: no symptoms. Musculoskeletal: Denies: back pain. Skin: Reports: no symptoms. Neurological/Psychological: Reports: no symptoms. Hematologic/Endocrine: Reports: no symptoms. Immunologic/Allergic: Reports: no symptoms. (MO BISHOP) Physical Exam Physical Exam General Appearance: well developed/nourished, alert, awake Head: atraumatic, normal appearance Eyes: Bilateral: normal appearance, PERRL, EOMI. Ears, Nose, Throat, Mouth: hearing grossly normal, moist mucous membrane Neck: normal inspection, supple, full range of motion Respiratory: normal breath sounds, chest non-tender, no respiratory distress, lungs clear Cardiovascular: regular rate/rhythm Gastrointestinal: normal bowel sounds, soft, mild upper abdominal tenderness. Back: normal inspection, normal range of motion Extremities: normal range of motion Neurologic/Psych: no motor/sensory deficits, awake, alert, oriented x 3, normal gait, normal mood/affect Skin: intact, normal color, warm/dry Core Measures ACS in differential dx? No Severe Sepsis Present: No Septic Shock Present: No (MO BISHOP) Progress Differential Diagnosis: AAA, AMI, biliary colic, bowel obstruction, cholecystitis, diverticulitis, gastritis, hepatitis, pancreatitis, PUD/GERD, perforated viscous, pyelonephritis, UTI/pyelo Plan of Care: Orders Procedure Date/time Status URINALYSIS 09/30 1305 Complete LIPASE 09/30 1305 Complete COMPREHENSIVE METABOLIC PANEL 09/30 1305 Complete CBC WITHOUT DIFFERENTIAL 09/30 1305 Complete FingerStick- Glucose 09/30 1300 Active Laboratory Tests 09/30/16 1400: Urine Color STRAW, Urine Clarity CLEAR, Urine pH 7.0, Ur Specific [place] 1.010, Urine Protein NEG, Urine Ketones NEG, Urine Nitrite NEG, Urine Bilirubin NEG, Urine Urobilinogen 0.2, Ur Leukocyte Esterase NEG, Ur Microscopic EXAM NOT REQUIRED, Urine Hemoglobin NEG, Urine Glucose 250 H 09/30/16 1344: Anion Gap 8, Estimated GFR 34 L, BUN/Creatinine Ratio 11.5, Glucose 203 H, Calcium 10.0, Total Bilirubin 0.5, AST 26, ALT 35, Alkaline Phosphatase 64, Total Protein 6.7, Albumin 4.1, Globulin 2.6, Albumin/Globulin Ratio 1.6, Lipase 12 L 09/30/16 1315: CBC w Diff NO MAN DIFF REQ, RBC 4.18 L, MCV 91.6, MCH 31.6 H, RDW 13.0, MPV 9.0, Gran % 79.2 H, Lymphocytes % 13.7 L, Monocytes % 6.7, Eosinophils % 0.3, Basophils % 0.1, Absolute Granulocytes 5.4, Absolute Lymphocytes 0.9 L, Absolute Monocytes 0.5, Absolute Eosinophils 0, Absolute Basophils 0, PUBS MCHC 34.5 1510: Results of labs discussed with patient. Consistent with previous. Imaging deferred secondary to exam and previous ED evaluations. Appears stable for discharge and outpatient follow up. ([place] BISHOP) Initial ED EKG: none (MO BISHOP) Departure Departure Disposition: HOME OR SELF CARE Condition: Stable Clinical Impression Primary Impression: Abdominal pain Referrals: GREGORY HARRIS,COURTNEY ETIENNE MD,BECKA Lemus (PCP/Family) Additional Instructions: Follow-up with your nurse first aid and primary doctor for further evaluation. Jer afternoon for appointment to be seen next week. Return to the emergency department if worsening of symptoms. Departure Forms: Customer Survey General Discharge Information ([place] BISHOP) PA/FOUNDRY WORKER GENERAL Co-Sign Statement Statement: ED Attending supervision documentation- [X] I saw and evaluated the patient. I have also reviewed all the pertinent lab results and diagnostic results. I agree with the findings and the plan of care as documented in the PA's/FOUNDRY WORKER GENERAL's documentation. [X] I have reviewed the ED Record and agree with the PA's/FOUNDRY WORKER GENERAL's documentation. [] Additions or exceptions (if any) to the PAs/FOUNDRY WORKER GENERAL's note and plan are summarized below: [] (MERLY HARRIS,LUIS ALFREDO)
[2016-09-30 13:32] LABS: ABSOLUTE BASOPHIL COUNT 0 /CUMM (0.0-0.2); ABSOLUTE EOSINOPHIL COUNT 0 /CUMM (0.0-0.7); ABSOLUTE GRANULOCYTE CT 5.4 /CUMM (1.4-6.5); ABSOLUTE LYMPH COUNT 0.9 /CUMM (1.2-3.4); ABSOLUTE MONOCYTE COUNT 0.5 /CUMM (0.10-0.60); BASOPHIL % 0.1 % (0.0-2.0); EOSINOPHIL % 0.3 % (0-5); GRANULOCYTE % 79.2 % (42.2-75.2); HEMATOCRIT 38.3 % (42-52); MEAN CORPUSCULAR HGB 31.6 PG (27.0-31.0); MEAN CORPUSCULAR HGB CONC 34.5 G/DL (33.0-37.0); MEAN CORPUSCULAR VOLUME 91.6 FL (80.0-94.0); PLATELET COUNT 203 /CUMM (130-400); RED BLOOD CELL CT 4.18 /CUMM (4.70-6.10); WHITE BLOOD CELL COUNT 6.8 /CUMM (4.8-10.8)
[2016-09-30 15:20] VITALS: BP 164/92
== END 2016-09-30 15:20 ==
LOC: ERH 12:20
PROVIDERS: Physician Assistant
DX: R10.10 Upper abdominal pain, unspecified (principal)
CPT/HCPCS: 81003; 96374; 96375; J0131

== ENCOUNTER 2016-10-08 08:02 | Emergency (ER) | payer OTHER ==
[~2016-10-08] VITALS: Ht 170.2 cm; Wt 70.3 kg
[2016-10-08 08:05] VITALS: BP 160/100
--- NOTE | 2016-10-08 09:18 | ED GI/GU/ABDOMINAL COMPLAINT ---
History of Present Illness General Chief Complaint: Abdominal Pain/Flank Pain Stated Complaint: ABD PAIN Source: patient, old records Exam Limitations: no limitations Vital Signs & Intake/Output Vital Signs & Intake/Output Vital Signs Date Time Temp Pulse Resp B/P Pulse O2 O2 Flow FiO2 Ox Delivery Rate 10/08 0831 97 10/08 0805 99.3 97 18 160/100 97 Room Air Room Air Allergies Coded Allergies: NO KNOWN ALLERGIES (09/24/16) Reconcile Medications Alprazolam 0.25 MG TABLET 1 TAB PO TID ANXIETY (Reported) Amlodipine Besylate 10 MG TABLET 1 TAB PO DAILY HEART HEALTH (Reported) Aspirin (Ecotrin) 81 MG TABLET.DR 1 TAB PO DAILY HEART HEALTH (Reported) Calcitriol 0.25 MCG CAPSULE 1 CAP PO DAILY BONES (Reported) Captopril 50 MG TAB 1 TAB PO BID BP (Reported) Cholecalciferol (Vitamin D3) 1,000 IU TAB 1,000 IU PO DAILY VITAMIN D SUPPLEMET (Reported) Diclofenac Sodium (Voltaren) 100 GM GEL..GRAM. 1 GM TOP 4 TIMES/DAY ARTHRITIS (Reported) apply to affected area(s) Dicyclomine HCl (Bentyl) 20 MG TABLET 1 TAB PO TID ABD PAIN Gabapentin 300 MG CAPSULE 1 CAP PO TID NERVE PAIN/MENTAL HEALTH (Reported) Humulin 70-30 (Humulin 70-30 Vial) 100 UNIT/1 ML VIAL 10 UNITS SC QAM AC Diabetes (Reported) Humulin 70-30 (Humulin 70-30 Vial) 100 UNIT/1 ML VIAL 12 UNIT SC QPM AC DIABETES (Reported) Lipase/Protease/Amylase (Kajal Roldan 36,000 Units Capsule) 1 EACH CAPSULE. 1 CAP PO TID PANCREASE (Reported) Magnesium Oxide (Magnesium) 400 MG CAPSULE 1 CAP PO DAILY MAG Metoclopramide HCl (Reglan) 10 MG TABLET 1 TAB PO TID PRN NAUSEA 30 minutes before meals and bedtime Nebivolol HCl (Bystolic) 20 MG TABLET 1 TAB PO DAILY BP (Reported) Omeprazole Magnesium (Prilosec Otc) 20 MG TABLET.DR 1 TAB PO BID GASTRITIS Ondansetron (Zofran Odt) 4 MG TAB.RAPDIS 1 TAB SL TID PRN nausea Prochlorperazine 25 MG SUPP.RECT 1 SUPP OR PRN N/V (Reported) Sucralfate (Carafate) 1 GRAM TABLET 1 TAB PO 4 TIMES/DAY GASTRITIS FOR GASTRITIS.... TAKE 30 MINUTES AFTER YOUR REGULAR MEDICATIONS Tramadol HCl 50 MG TABLET 1 TAB PO BIDP PRN PAIN (Reported) Zolpidem Tartrate (Ambien) 5 MG TABLET 1 TAB PO QPMP insomnia May repeat in 45 minutes if no effect on sleep Triage Note: TRIAGE: 61 Y/O MALE PRESENTS C/O 06/20 ABDOMINAL PAIN - "CHONRIC PAIN, A WHILE". REPORTS WAS SEEN BY DR JENKINS FOR A RECENT PROCEDURE AND "PASSED OUT DURING THE PROCEDURE" - "NOBODY KNOWS WHAT'S WRONG WITH ME." Triage Nurses Notes Reviewed? yes Onset: Just prior to arrival Duration: constant, continues in ED Timing: recent history Quality/Severity: aching, vomiting Location: generalized abdomen Radiation: no radiation Activities at Onset: none Prior Abdominal Problems: similar symptoms Past Sexual History: Unobtainable at this time Modifying Factors: Worsens With: eating. Associated Symptoms: abdominal pain, loss of appetite, nausea/vomiting HPI: Patient presents with chronic nausea vomiting abdominal pain described as waxing and waning aching worse with eating nonradiating moderate to severe in intensity. Is followed by GI with recent MRI of his abdomen demonstrating no acute changes. He denies fever chills chest pain cough shortness breath headache dysuria rash bleeding Past History Travel History Traveled to [place] past 21 day No Medical History Any Pertinent Medical History? 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 No Review of Systems Review of Systems Constitutional: Reports: no symptoms. EENTM: Reports: no symptoms. Respiratory: Reports: no symptoms. Cardiovascular: Reports: no symptoms. GI: Reports: see HPI, abdominal pain, nausea, vomiting. Genitourinary: Reports: no symptoms. Musculoskeletal: Reports: no symptoms. Skin: Reports: no symptoms. Neurological/Psychological: Reports: no symptoms. Hematologic/Endocrine: Reports: no symptoms. Immunologic/Allergic: Reports: no symptoms. All Other Systems: Reviewed and Negative Physical Exam Physical Exam General Appearance: well developed/nourished, alert, awake, anxious, mild distress Head: atraumatic, normal appearance Eyes: Bilateral: normal appearance, PERRL, EOMI, normal inspection. Ears, Nose, Throat, Mouth: hearing grossly normal, moist mucous membrane Neck: normal inspection, supple, full range of motion, normal alignment Respiratory: normal breath sounds, chest non-tender, no respiratory distress, quiet respiration, lungs clear Cardiovascular: regular rate/rhythm, normal peripheral pulses, norml femoral pulses equa Peripheral Pulses: 4+ carotid (R), 4+ carotid (L), 2+ radial (R), 2+ radial (L) Gastrointestinal: normal bowel sounds, soft, non-tender, no organomegaly Male Genitals: normal genitalia Back: normal inspection, normal range of motion Extremities: normal range of motion, no ligament instability Neurologic/Psych: no motor/sensory deficits, awake, alert, oriented x 3, normal gait, normal mood/affect, 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 No Severe Sepsis Present: No Septic Shock Present: No Progress Differential Diagnosis: gastritis, pancreatitis, PUD/GERD Plan of Care: Current Medications Sig/Martir Start time Last Medication Dose Stop Time Status Admin Sodium Chloride 1,000 ML BOLUS ONE 10/08 0915 AC (Normal Saline 0.9%) 10/08 1014 Initial ED EKG: none Departure Departure Time of Disposition: 1038 Disposition: HOME OR SELF CARE Condition: Stable Clinical Impression Primary Impression: Abdominal pain Qualifiers: Abdominal location: generalized Qualified Code: R10.84 - Generalized abdominal pain Secondary Impressions: Nausea and vomiting Qualifiers: Vomiting type: unspecified Vomiting Intractability: non-intractable Qualified Code: R11.2 - Nausea with vomiting, unspecified Referrals: GREGORY HARRIS,COURTNEY ETIENNE MD,BECKA Lemus (PCP/Family) Departure Forms: Customer Survey General Discharge Information
== END 2016-10-08 10:40 ==
LOC: ERH 08:02
DX: R10.84 Generalized abdominal pain (principal); R11.2 Nausea with vomiting, unspecified
CPT/HCPCS: 96361; 96374; 96375; J2405

== ENCOUNTER 2016-10-11 07:31 | Emergency (ER) | payer OTHER ==
[~2016-10-11] VITALS: Ht 170.2 cm; Wt 70.3 kg
[2016-10-11 07:36] VITALS: BP 148/92
--- NOTE | 2016-10-11 08:02 | ED GI/GU/ABDOMINAL COMPLAINT ---
History of Present Illness General Chief Complaint: Abdominal Pain/Flank Pain Stated Complaint: ABD PAIN Source: patient, old records Exam Limitations: no limitations Vital Signs & Intake/Output Vital Signs & Intake/Output Vital Signs Date Time Temp Pulse Resp B/P Pulse O2 O2 Flow FiO2 Ox Delivery Rate 10/11 0736 97.8 95 20 148/92 99 Room Air Room Air Allergies Coded Allergies: NO KNOWN ALLERGIES (09/24/16) Reconcile Medications Alprazolam 0.25 MG TABLET 1 TAB PO TID ANXIETY (Reported) Amlodipine Besylate 10 MG TABLET 1 TAB PO DAILY HEART HEALTH (Reported) Aspirin (Ecotrin) 81 MG TABLET.DR 1 TAB PO DAILY HEART HEALTH (Reported) Calcitriol 0.25 MCG CAPSULE 1 CAP PO DAILY BONES (Reported) Captopril 50 MG TAB 1 TAB PO BID BP (Reported) Cholecalciferol (Vitamin D3) 1,000 IU TAB 1,000 IU PO DAILY VITAMIN D SUPPLEMET (Reported) Diclofenac Sodium (Voltaren) 100 GM GEL..GRAM. 1 GM TOP 4 TIMES/DAY ARTHRITIS (Reported) apply to affected area(s) Dicyclomine HCl (Bentyl) 20 MG TABLET 1 TAB PO TID ABD PAIN Gabapentin 300 MG CAPSULE 1 CAP PO TID NERVE PAIN/MENTAL HEALTH (Reported) Humulin 70-30 (Humulin 70-30 Vial) 100 UNIT/1 ML VIAL 10 UNITS SC QAM AC Diabetes (Reported) Humulin 70-30 (Humulin 70-30 Vial) 100 UNIT/1 ML VIAL 12 UNIT SC QPM AC DIABETES (Reported) Hyoscyamine (Levsin) 0.125 MG TABLET 1 TAB PO Q4 PRN ABDOMINAL DISCOMFORT Lipase/Protease/Amylase (Kajal Roldan 36,000 Units Capsule) 1 EACH CAPSULE. 1 CAP PO TID PANCREASE (Reported) Magnesium Oxide (Magnesium) 400 MG CAPSULE 1 CAP PO DAILY MAG Metoclopramide HCl (Reglan) 10 MG TABLET 1 TAB PO TID PRN NAUSEA 30 minutes before meals and bedtime Nebivolol HCl (Bystolic) 20 MG TABLET 1 TAB PO DAILY BP (Reported) Omeprazole Magnesium (Prilosec Otc) 20 MG TABLET.DR 1 TAB PO BID GASTRITIS Ondansetron (Zofran Odt) 4 MG TAB.RAPDIS 1 TAB SL TID PRN nausea Ondansetron (Zofran Odt) 4 MG TAB.RAPDIS 1 TAB SL TID PRN NAUSEA Prochlorperazine 25 MG SUPP.RECT 1 SUPP DE PRN N/V (Reported) Sucralfate (Carafate) 1 GRAM TABLET 1 TAB PO 4 TIMES/DAY GASTRITIS FOR GASTRITIS.... TAKE 30 MINUTES AFTER YOUR REGULAR MEDICATIONS Tramadol HCl 50 MG TABLET 1 TAB PO BIDP PRN PAIN (Reported) Zolpidem Tartrate (Ambien) 5 MG TABLET 1 TAB PO QPMP insomnia May repeat in 45 minutes if no effect on sleep Triage Note: PT TO ED WITH C/O MID ABD PAIN AND NAUSEA, DENIES VOMITING OR DIARRHEA OR FEVER AT HOME. Triage Nurses Notes Reviewed? yes Onset: Gradual Duration: worse persistent since (2 DAYS) Timing: recent history Quality/Severity: cramping, moderate Severity Numbers: 6 Location: generalized abdomen Radiation: no radiation Activities at Onset: none Prior Abdominal Problems: similar symptoms Past Sexual History: Unobtainable at this time No Modifying Factors: none HPI: Patient is a 61-year-old male presenting to the emergency department with chief complaint of generalized abdominal pain has been going on and off for the past couple months. Patient reports that he is seeing gastroenterology, had an MRI performed last week but was unable to perform the entire test because he passed out in the MRI machine. Patient reports nausea and intermittent vomiting. No blood in the vomit. Denies any diarrhea. No recent travel. Denies recent antibiotics. Nothing seems to make the pain better or worse. He reports he was seen here about 2 days ago and given fluids and nausea medication which seemed to help. Denies any change in diet. (SHAHRAM WHITTEN) Past History Travel History Traveled to [place] past 21 day No Medical History Any Pertinent Medical History? see below for history Neurological: NONE EENT: allergies Cardiovascular: hypertension Respiratory: NONE Gastrointestinal: constipation, chronic pancreatitis noticed on CAT scan Hepatic: NONE Renal: NONE Musculoskeletal: chronic back pain, ARTHRITIS Psychiatric: NONE Endocrine: diabetes Blood Disorders: NONE Cancer(s): NONE EYELETTER/Reproductive: NONE History of MRSA: No History of VRE: No History of CDIFF: No Surgical History Surgical History: appendectomy, DEVIATED SEPTUM,HERNIA Psychosocial History Who do you live with Patient/Self Services at Home None What is your primary language [place] Tobacco Use: Current Daily Use Daily Tobacco Use Amount/Type: => 5 Cigarettes daily ETOH Use: denies use Illicit Drug Use: denies illicit drug use Family History Family History, If Any: FATHER FH: diabetes mellitus FH: renal failure MOTHER FH: hyperlipidemia Relation not specified for: FH: CHF (congestive heart failure) Hx Contributory? No (SHAHRAM WHITTEN) Review of Systems Review of Systems Constitutional: Reports: malaise. Comments Review of systems: See HPI, All other systems negative. Constitutional, no chills fever or weight loss HEENT: No visual changes no sore throat no congestion Cardiovascular: No chest pain ,palpitation , orthopnea or ankle swelling Skin, no jaundice no rashes Respiratory: No dyspnea cough sputum or hemoptysis GI: No diarrhea : No dysuria No hematuria Muscle skeletal: no back pain, no neck pain, Neurologic: No numbness no confusion Psych: No increased stress anxiety or depression,. Heme/endocrine: No bruising no bleeding no polyuria or polydipsia Immunology: No splenectomy or history of AIDS (SHAHRAM WHITTEN) Physical Exam Physical Exam General Appearance: well developed/nourished, no apparent distress, alert, awake , comfortable Gastrointestinal: normal bowel sounds, soft, tenderness Comments: Well-developed well-nourished person in no acute distress HEENT: Pupils equally round and reactive to light and accommodation. Nose is atraumatic. Pharynx normal. No swelling or edema. Neck: Normal inspection Back: Nontender, no CVA tenderness. Cardiovascular: Regular rate and rhythms no murmurs rubs or gallops, normal JVP Respiratory: No respiratory distress.breath sounds clear to auscultation bilaterally Abdomen: Soft, diffuse tenderness to palpation, no rebound or guarding, nondistended, no appreciable organomegaly. Normal bowel sounds. No ascites Extremity: No edema Neuro: Alert oriented x3 Skin: No appreciable rash on exposed skin, skin is warm and dry. Psych: Mood and affect is normal, memory and judgment is normal. Core Measures ACS in differential dx? No Severe Sepsis Present: No Septic Shock Present: No (SHAHRAM WHITTEN) Progress Differential Diagnosis: appendicitis, biliary colic, colon cancer, cholecystitis , diverticulitis, gastritis, hepatitis, pancreatitis, urethritis, UTI/pyelo Plan of Care: Orders Procedure Date/time Status Consistent Carbohydrate 1 10/11 B Active URINALYSIS 10/11 0818 Complete LIPASE 01/31 0808 Complete COMPREHENSIVE METABOLIC PANEL 10/11 807 Complete CBC WITHOUT DIFFERENTIAL 10/11 807 Complete AMYLASE 10/11 807 Complete Laboratory Tests 10/11/16 0931: Urine Color YEL, Urine Clarity CLEAR, Urine pH 6.5, Ur Specific [place] 1.010, Urine Protein NEG, Urine Ketones NEG, Urine Nitrite NEG, Urine Bilirubin NEG, Urine Urobilinogen 0.2, Ur Leukocyte Esterase NEG, Ur Microscopic EXAM NOT REQUIRED, Urine Hemoglobin NEG, Urine Glucose 100 H 10/11/16 0828: Anion Gap 11, Estimated GFR 34 L, BUN/Creatinine Ratio 12.0, Glucose 211 H, Calcium 9.7, Total Bilirubin 0.8, AST 26, ALT 35, Alkaline Phosphatase 75, Total Protein 6.8, Albumin 4.1, Globulin 2.7, Albumin/Globulin Ratio 1.5, Amylase 41, Lipase 20 L, CBC w Diff NO MAN DIFF REQ, RBC 4.37 L, MCV 91.6, MCH 31.5 H, RDW 12.7, MPV 8.8, Gran % 79.4 H, Lymphocytes % 12.6 L, Monocytes % 6.6, Eosinophils % 1.2, Basophils % 0.2, Absolute Granulocytes 5.0, Absolute Lymphocytes 0.8 L, Absolute Monocytes 0.4, Absolute Eosinophils 0.1, Absolute Basophils 0, PUBS MCHC 34.4 Initial ED EKG: none Comments: 10/11/2016 8:24:23 AM on arrival patient no acute distress, vital stable. Patient does have diffuse tenderness on his abdomen, abdomen is soft. Patient has been seen and evaluated for this abdominal pain several times. He reports he is unable to keep anything down. Patient will be medicated with IV fluids, IV Phenergan for nausea. CBC, CMP, amylase and lipase and urinalysis ordered. Patient did have recent MRI which was essentially unremarkable but requires further evaluation secondary to patient noncompliance during exam. 10/11/2016 9:53:01 AM no acute changes with lab values from previous visit. Patient is eating scrambled eggs in no acute distress. No nausea or vomiting. Patient will follow-up with gastroenterology. (JUAN DANIEL PÉREZ,SHAHRAM) Departure Departure Time of Disposition: 916 Disposition: HOME OR SELF CARE Condition: Stable Clinical Impression Primary Impression: Chronic renal disease Qualifiers: Chronic kidney disease stage: stage 1 Qualified Code: N18.1 - Chronic kidney disease, stage 1 Secondary Impressions: Abdominal pain Qualifiers: Abdominal location: generalized Qualified Code: R10.84 - Generalized abdominal pain Dehydration Referrals: GREGORY HARRIS,COURTNEY ETIENNE MD,BECKA Lemus (PCP/Family) Additional Instructions: Follow-up with your knit tubing dyer call to make an appointment. Increase fluids. Take Zofran as prescribed for nausea. Use Levsin as directed to help with abdominal pain. Return for worsening symptoms or concerns. Departure Forms: Customer Survey D/C INS-APPENDICITIS EXCLUSION General Discharge Information Prescriptions: Current Visit Scripts Ondansetron (Zofran Odt) 1 TAB SL TID PRN NAUSEA #10 TAB Hyoscyamine (Levsin) 1 TAB PO Q4 PRN ABDOMINAL DISCOMFORT #20 TAB (SHAHRAM WHITTEN) PA/ACTION INSTALLER Co-Sign Statement Statement: ED Attending supervision documentation- x I saw and evaluated the patient. I have also reviewed all the pertinent lab results and diagnostic results. I agree with the findings and the plan of care as documented in the PA's/ACTION INSTALLER's documentation. [] I have reviewed the ED Record and agree with the PA's/ACTION INSTALLER's documentation. [] Additions or exceptions (if any) to the PAs/ACTION INSTALLER's note and plan are summarized below: [] (MATEUSZ HARRIS,ROSANA)
[2016-10-11 08:38] LABS: ABSOLUTE BASOPHIL COUNT 0 /CUMM (0.0-0.2); ABSOLUTE EOSINOPHIL COUNT 0.1 /CUMM (0.0-0.7); ABSOLUTE LYMPH COUNT 0.8 /CUMM (1.2-3.4); ABSOLUTE MONOCYTE COUNT 0.4 /CUMM (0.10-0.60); BASOPHIL % 0.2 % (0.0-2.0); EOSINOPHIL % 1.2 % (0-5); GRANULOCYTE % 79.4 % (42.2-75.2); MEAN CORPUSCULAR HGB 31.5 PG (27.0-31.0); MEAN CORPUSCULAR HGB CONC 34.4 G/DL (33.0-37.0); MEAN CORPUSCULAR VOLUME 91.6 FL (80.0-94.0); MEAN PLATELET VOLUME 8.8 FL (7.4-10.4); PLATELET COUNT 188 /CUMM (130-400); RBC DISTRIBUTION WIDTH 12.7 % (11.5-14.5); RED BLOOD CELL CT 4.37 /CUMM (4.70-6.10); WHITE BLOOD CELL COUNT 6.3 /CUMM (4.8-10.8)
[2016-10-11] MEDS ORDERED: ZOFRAN ODT4 M1 SL (09:23)
[2016-10-11] MEDS ORDERED: LEVSIN0.125 M1 PO (09:23)
== END 2016-10-11 09:45 ==
LOC: ERH 07:31
PROVIDERS: Physician Assistant
DX: N18.9 Chronic kidney disease, unspecified (principal); E86.0 Dehydration; I10 Essential (primary) hypertension; Z72.0 Tobacco use; E11.9 Type 2 diabetes mellitus without complications; Z79.4 Long term (current) use of insulin
CPT/HCPCS: 81003; 96374

== ENCOUNTER 2016-10-18 13:17 | Emergency (ER) | payer OTHER ==
[~2016-10-18] VITALS: Ht 170.2 cm; Wt 72.6 kg
[~2016-10-18 13:17] MED LIST changes: +LEVSIN0.125 M1 PO
--- NOTE | 2016-10-18 14:00 | ED GI/GU/ABDOMINAL COMPLAINT ---
History of Present Illness General Chief Complaint: Abdominal Pain/Flank Pain Stated Complaint: ABD PAIN Source: patient, old records Exam Limitations: no limitations Vital Signs & Intake/Output Vital Signs & Intake/Output Vital Signs Date Time Temp Pulse Resp B/P Pulse O2 O2 Flow FiO2 Ox Delivery Rate 10/18 1610 97.9 10/18 1322 97.9 97 20 156/102 97 Room Air Allergies Coded Allergies: NO KNOWN ALLERGIES (09/24/16) Reconcile Medications Amlodipine Besylate (Unknown Strength) TABLET (Unknown Dose) PO DAILY HEART HEALTH (Reported) Aspirin (Ecotrin*) 81 MG TABLET.DR 1 TAB PO DAILY HEART/BLOOD (Reported) Calcitriol 0.25 MCG CAPSULE 1 CAP PO DAILY BONES (Reported) Cholecalciferol (Vitamin D3) (Vitamin D3) 1,000 UNIT CAPSULE 1 CAP PO DAILY SUPPLEMENT (Reported) Diclofenac Sodium (Voltaren) 100 GM GEL..GRAM. 1 GM TOP 4 TIMES/DAY ARTHRITIS (Reported) apply to affected area(s) Gabapentin 300 MG CAPSULE 1 CAP PO TID NERVE PAIN/MENTAL HEALTH (Reported) Humulin 70-30 (Humulin 70-30 Vial) 100 UNIT/1 ML VIAL 10 UNITS SC QAM AC Diabetes (Reported) Humulin 70-30 (Humulin 70-30 Vial) 100 UNIT/1 ML VIAL 8 UNIT SC QPM AC DIABETES (Reported) Lipase/Protease/Amylase (Cresharri Roldan 36,000 Units Capsule) 1 EACH CAPSULE.DR 1 CAP PO TID PANCREASE (Reported) Lipase/Protease/Amylase (Lisbeth Roldan 40,000 Units Capsule) 40K-136K CAPSULE.DR 1 CAP PO TID PANCREASE (Reported) Magnesium Oxide (Magnesium) 400 MG CAPSULE 1 CAP PO DAILY MAG Nebivolol HCl (Bystolic) 20 MG TABLET 1 TAB PO DAILY BP (Reported) Omeprazole Magnesium (Prilosec Otc) 20 MG TABLET.DR 1 TAB PO BID GASTRITIS Ondansetron (Zofran Odt) 4 MG TAB.RAPDIS 1 TAB SL TID PRN nausea Ondansetron (Zofran Odt) 4 MG TAB.RAPDIS 1 TAB SL TID PRN NAUSEA Tramadol HCl 50 MG TABLET 1 TAB PO BIDP PRN PAIN (Reported) Tramadol HCl 50 MG TABLET 1-2 TAB PO Q6 PRN pain Zolpidem Tartrate (Ambien) 5 MG TABLET 1 TAB PO QPMP insomnia May repeat in 45 minutes if no effect on sleep Triage Note: C/O ABDOMINAL PAIN WITH VOMITING SINCE THIS AM. UNRELIEVED BY ZOFRAN AND TRAMADOL STATES HE HAD A MRI OF HIS STOMACH ON 10/13. Triage Nurses Notes Reviewed? yes HPI: Patient is a 61-year-old male presents complaining of diffuse abdominal pain, nausea, vomiting. Symptoms onset this morning. Patient reports pain feels similar to his chronic abdominal pain. Pain is an aching pain currently moderate to severe. Patient had MRI 5 days ago for evaluation of this pain. Patient does not know the results of this test. 2 episodes of vomiting today. Patient took Zofran and a dose of tramadol with no improvement. Patient reports that his blood sugar this morning was approximately 330. Patient denies fevers, chills, diarrhea. (MO BISHOP) Past History Travel History Traveled to [place] past 21 day No Medical History Any Pertinent Medical History? see below for history Neurological: NONE EENT: allergies Cardiovascular: hypertension Respiratory: NONE Gastrointestinal: constipation, chronic pancreatitis noticed on CAT scan Hepatic: NONE Renal: NONE Musculoskeletal: chronic back pain, ARTHRITIS Psychiatric: NONE Endocrine: diabetes Blood Disorders: NONE Cancer(s): NONE RN DOCUMENTATION/Reproductive: NONE History of MRSA: No History of VRE: No History of CDIFF: No Surgical History Surgical History: appendectomy, DEVIATED SEPTUM,HERNIA Psychosocial History Who do you live with Patient/Self Services at Home None What is your primary language Sami Tobacco Use: Current Daily Use Daily Tobacco Use Amount/Type: => 5 Cigarettes daily ETOH Use: occasional use Family History Family History, If Any: FATHER FH: diabetes mellitus FH: renal failure MOTHER FH: hyperlipidemia Relation not specified for: FH: CHF (congestive heart failure) Hx Contributory? No (MO BISHOP) Review of Systems Review of Systems Constitutional: Denies: chills, fever. EENTM: Reports: no symptoms. Respiratory: Denies: cough, short of breath. Cardiovascular: Denies: chest pain. GI: Reports: see HPI. Genitourinary: Reports: no symptoms. Musculoskeletal: Reports: no symptoms. Skin: Reports: no symptoms. Neurological/Psychological: Reports: no symptoms. Hematologic/Endocrine: Reports: other (elevated blood sugar). Immunologic/Allergic: Reports: no symptoms. (MO BISHOP) Physical Exam Physical Exam General Appearance: well developed/nourished, alert, awake Head: atraumatic, normal appearance Eyes: Bilateral: normal appearance, PERRL, EOMI. Ears, Nose, Throat, Mouth: hearing grossly normal, moist mucous membrane Neck: normal inspection, supple, full range of motion Respiratory: normal breath sounds, chest non-tender, no respiratory distress, lungs clear Cardiovascular: regular rate/rhythm Gastrointestinal: normal bowel sounds, soft, non-tender Back: normal inspection, normal range of motion Extremities: normal range of motion Neurologic/Psych: no motor/sensory deficits, awake, alert, oriented x 3, normal gait, normal mood/affect Skin: intact, normal color, warm/dry Core Measures ACS in differential dx? No Severe Sepsis Present: No Septic Shock Present: No (MO BISHOP) Progress Differential Diagnosis: AAA, biliary colic, cholecystitis, gastritis, hepatitis, ischemic bowel, inflamm bowel dis, pancreatitis, prostatitis, peptic ulcer, perforated viscous, SBO, UTI/pyelo Plan of Care: Orders Procedure Date/time Status LIPASE 10/18 1430 Complete COMPREHENSIVE METABOLIC PANEL 10/18 1430 Complete CBC WITHOUT DIFFERENTIAL 10/18 1430 Complete AMYLASE 10/18 1430 Complete ACETONE 10/18 1430 Complete Laboratory Tests 10/18/16 1453: Anion Gap 9, Estimated GFR 36 L, BUN/Creatinine Ratio 10.0, Glucose 282 H, Calcium 9.4, Total Bilirubin 0.6, AST 26, ALT 36, Alkaline Phosphatase 74, Total Protein 6.8, Albumin 4.1, Globulin 2.7, Albumin/Globulin Ratio 1.5, Amylase 39, Lipase 35, CBC w Diff NO MAN DIFF REQ, RBC 4.30 L, MCV 92.3, MCH 31.5 H, RDW 13.2, MPV 8.6, Gran % 75.7 H, Lymphocytes % 14.8 L, Monocytes % 8.1, Eosinophils % 1.0, Basophils % 0.4, Absolute Granulocytes 5.4, Absolute Lymphocytes 1.1 L, Absolute Monocytes 0.6, Absolute Eosinophils 0.1, Absolute Basophils 0, PUBS MCHC 34.1, Acetone Level NEGATIVE 10/18/2016 4:56:45 PM: Results of labs discussed with patient. No episodes of vomiting in the emergency department. No peritoneal signs on abdominal exam. Patient had an MRI of the abdomen on October 13, symptoms are consistent with the patient's chronic abdominal pain. Further abdominal imaging deferred. 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 (MO BISHOP) Initial ED EKG: none (MO BISHOP) Departure Departure Disposition: HOME OR SELF CARE Condition: Stable Clinical Impression Primary Impression: Chronic pancreatitis Qualifiers: Pancreatitis type: unspecified pancreatitis type Qualified Code: K86.1 - Other chronic pancreatitis Secondary Impressions: Hyperglycemia Referrals: GREGORY HARRIS,COURTNEY LORA MD,BECKA Lemus (PCP/Family) Additional Instructions: Follow up with Dr. Woodruff for further evaluation. Also follow up with Dr. Lora for futher evaluation of your elevated blood sugars. Call today or in the morning for appointments to be seen within 1 week. Return to the ER if worsening of symptoms. Departure Forms: Customer Survey General Discharge Information Prescriptions: Current Visit Scripts Ondansetron (Zofran Odt) 1 TAB SL TID PRN nausea #10 TAB Tramadol HCl 1-2 TAB PO Q6 PRN pain #15 TAB (MO BISHOP) PA/E COMMERCE MERCHANDISING COORDINATOR Co-Sign Statement Statement: ED Attending supervision documentation- [] I saw and evaluated the patient. I have also reviewed all the pertinent lab results and diagnostic results. I agree with the findings and the plan of care as documented in the PA's/E COMMERCE MERCHANDISING COORDINATOR's documentation. x I have reviewed the ED Record and agree with the PA's/E COMMERCE MERCHANDISING COORDINATOR's documentation. [] Additions or exceptions (if any) to the PAs/E COMMERCE MERCHANDISING COORDINATOR's note and plan are summarized below: [] (MATEUSZ HARRIS,ROSANA)
[2016-10-18 15:03] LABS: ABSOLUTE BASOPHIL COUNT 0 /CUMM (0.0-0.2); ABSOLUTE EOSINOPHIL COUNT 0.1 /CUMM (0.0-0.7); ABSOLUTE GRANULOCYTE CT 5.4 /CUMM (1.4-6.5); ABSOLUTE LYMPH COUNT 1.1 /CUMM (1.2-3.4); ABSOLUTE MONOCYTE COUNT 0.6 /CUMM (0.10-0.60); BASOPHIL % 0.4 % (0.0-2.0); GRANULOCYTE % 75.7 % (42.2-75.2); HEMATOCRIT 39.7 % (42-52); MEAN CORPUSCULAR HGB 31.5 PG (27.0-31.0); MEAN CORPUSCULAR HGB CONC 34.1 G/DL (33.0-37.0); MEAN CORPUSCULAR VOLUME 92.3 FL (80.0-94.0); MEAN PLATELET VOLUME 8.6 FL (7.4-10.4); PLATELET COUNT 198 /CUMM (130-400); RBC DISTRIBUTION WIDTH 13.2 % (11.5-14.5); WHITE BLOOD CELL COUNT 7.2 /CUMM (4.8-10.8)
[2016-10-18] MEDS ORDERED: ASPIRIN EC81 M1 PO (15:48)
[2016-10-18] MEDS ORDERED: CALCITRIOL0.25 MC1 PO (15:48)
[2016-10-18] MEDS ORDERED: VITAMIN D31000 UNI1 PO (15:49)
[2016-10-18] MEDS ORDERED: ZENPEP DR 40,01 EACH PO (15:51)
[2016-10-18] MEDS ORDERED: ZOFRAN ODT4 M1 SL (16:03)
[2016-10-18] MEDS ORDERED: TRAMADOL HCL50 M1 PO (16:03)
[2016-10-18 17:14] VITALS: BP 140/88
== END 2016-10-18 17:14 ==
LOC: ERH 13:17
PROVIDERS: Physician Assistant
DX: K86.1 Other chronic pancreatitis (principal); E11.65 Type 2 diabetes mellitus with hyperglycemia
CPT/HCPCS: 96374; 96375; J0131; J2405

== ENCOUNTER 2016-10-21 14:42 | Emergency (ER) | payer OTHER ==
[~2016-10-21] VITALS: Ht 170.2 cm; Wt 70.3 kg
[~2016-10-21 14:42] MED LIST changes: +ASPIRIN EC81 M1 PO; +CALCITRIOL0.25 MC1 PO; +VITAMIN D31000 UNI1 PO; +ZENPEP DR 40,01 EACH PO
--- NOTE | 2016-10-21 15:33 | ED GENERAL ADULT ---
History of Present Illness General Chief Complaint: General Adult Stated Complaint: RECTAL BLEEDING Source: patient, old records Exam Limitations: poor historian Vital Signs & Intake/Output Vital Signs & Intake/Output Vital Signs Date Time Temp Pulse Resp B/P Pulse O2 O2 Flow FiO2 Ox Delivery Rate 10/21 1741 96.5 72 18 174/97 96 Room Air 10/21 1551 98.3 94 18 164/106 10/21 1532 164/106 10/21 1453 98.3 94 18 194/108 99 Room Air Allergies Coded Allergies: NO KNOWN ALLERGIES (09/24/16) Reconcile Medications Amlodipine Besylate (Unknown Strength) TABLET (Unknown Dose) PO DAILY HEART HEALTH (Reported) Aspirin (Ecotrin*) 81 MG TABLET.DR 1 TAB PO DAILY HEART/BLOOD (Reported) Calcitriol 0.25 MCG CAPSULE 1 CAP PO DAILY BONES (Reported) Cholecalciferol (Vitamin D3) (Vitamin D3) 1,000 UNIT CAPSULE 1 CAP PO DAILY SUPPLEMENT (Reported) Diclofenac Sodium (Voltaren) 100 GM GEL..GRAM. 1 GM TOP 4 TIMES/DAY ARTHRITIS (Reported) apply to affected area(s) Gabapentin 300 MG CAPSULE 1 CAP PO TID NERVE PAIN/MENTAL HEALTH (Reported) Humulin 70-30 (Humulin 70-30 Vial) 100 UNIT/1 ML VIAL 10 UNITS SC QAM AC Diabetes (Reported) Humulin 70-30 (Humulin 70-30 Vial) 100 UNIT/1 ML VIAL 8 UNIT SC QPM AC DIABETES (Reported) Lipase/Protease/Amylase (Kajal Roldan 36,000 Units Capsule) 1 EACH CAPSULE. 1 CAP PO TID PANCREASE (Reported) Lipase/Protease/Amylase (Lisbeth Roldan 40,000 Units Capsule) 40K-136K CAPSULE. 1 CAP PO TID PANCREASE (Reported) Magnesium Oxide (Magnesium) 400 MG CAPSULE 1 CAP PO DAILY MAG Nebivolol HCl (Bystolic) 20 MG TABLET 1 TAB PO DAILY BP (Reported) Omeprazole Magnesium (Prilosec Otc) 20 MG TABLET.DR 1 TAB PO BID GASTRITIS Ondansetron (Zofran Odt) 4 MG TAB.RAPDIS 1 TAB SL TID PRN nausea Ondansetron (Zofran Odt) 4 MG TAB.RAPDIS 1 TAB SL TID PRN NAUSEA Tramadol HCl 50 MG TABLET 1 TAB PO BIDP PRN PAIN (Reported) Tramadol HCl 50 MG TABLET 1-2 TAB PO Q6 PRN pain Zolpidem Tartrate (Ambien) 5 MG TABLET 1 TAB PO QPMP insomnia May repeat in 45 minutes if no effect on sleep Triage Note: C/O RECTAL BLEEDING SINCE THIS AM, (SMALL AMOUNT ON TOILET PAPER) WHILE STRAINING TO HAVE A BM. C/O MID ABDOMINAL PAIN (CHRONIC). 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 Triage Nurses Notes Reviewed? yes Onset: Just prior to arrival Duration: 1 EPISODE Timing: no prior history Injury Environment: home Severity: moderate Severity Numbers: 5 No Modifying Factors: none HPI: Patient is a 61-year-old male with history of chronic abdominal pain who has been seen and evaluated in the emergency department several times for same presenting today with chief complaint of bright red blood on toilet paper after straining to have a bowel movement today. Denies known history of hemorrhoids. He reports that he still having his chronic abdominal pain. Theenterologist margarito get him into pain management. He was seen and evaluated in the emergency department 3 days ago and given tramadol. Patient also reports that he also feels anxious. Denies any chest pain or shortness of breath. No fevers or chills. Denies urinary frequency urgency or dysuria. No hematuria. He's been taking his blood pressure medication as prescribed. No headaches. No visual changes. (SHAHRAM WHITTEN) Past History Travel History Traveled to [place] past 21 day No Medical History Any Pertinent Medical History? 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 No (SHAHRAM WHITTEN) Review of Systems Review of Systems Constitutional: Reports: see HPI, malaise. Comments Review of systems: See HPI, All other systems negative. Constitutional, no chills fever or weight loss HEENT: No visual changes no sore throat no congestion Cardiovascular: No chest pain ,palpitation , orthopnea or ankle swelling Skin, no jaundice no rashes Respiratory: No dyspnea cough sputum or hemoptysis GI: No nausea no vomiting : No dysuria No hematuria Muscle skeletal: no back pain, no neck pain, Neurologic: No numbness no confusion, no headaches. Psych: Positive stress, anxiety. Heme/endocrine: No bruising no bleeding no polyuria or polydipsia Immunology: No splenectomy or history of AIDS (SHAHRAM WHITTEN) Physical Exam Physical Exam General Appearance: no apparent distress, alert, awake, anxious, ANXIOUS Comments: Well-developed well-nourished person in no acute distress, appears very anxious. HEENT:Pupils equally round and reactive to light and accommodation. Nose is atraumatic. External auditory canal and Tympanic membranes clear. Pharynx normal. No swelling or edema. Neck: Normal inspection Back: Nontender, no CVA tenderness. Cardiovascular: Regular rate and rhythms no murmurs rubs or gallops, normal JVP Respiratory: Chest nontender. No respiratory distress.breath sounds clear to auscultation bilaterally Abdomen: Soft, nontender nondistended, no appreciable organomegaly. Normal bowel sounds. No ascites, no rebound or guarding. RECTAL: Brown stool, trace positive guaiac. No palpable hemorrhoids, no visible external hemorrhoids. Extremity: No edema Neuro: Alert oriented x3, motor sensory normal Skin: No appreciable rash on exposed skin, skin is warm and dry. Psych: Mood and affect is normal, memory and judgment is normal. Core Measures ACS in differential dx? No CVA/TIA Diagnosis: No Severe Sepsis Present: No Septic Shock Present: No (SHAHRAM WHITTEN) Progress Differential Diagnoses I considered the following diagnoses in my evaluation of the patient: Hypertensive urgency, medication noncompliance, generalized anxiety disorder, lower GI bleed, diverticulitis, hemorrhoids Plan of Care: Orders Procedure Date/time Status Add-on Test (ER Only) 10/21 1634 Active URINALYSIS 10/21 1634 Active ACETONE 10/21 1545 Active TROPONIN LEVEL 10/21 1530 Active PARTIAL THROMBOPLASTIN TIME 10/21 1530 Complete PROTHROMBIN TIME 10/21 1530 Complete COMPREHENSIVE METABOLIC PANEL 10/21 1530 Active CBC WITHOUT DIFFERENTIAL 10/21 153 Complete EKG 10/21 1530 Active Laboratory Tests 10/21/16 1545: Anion Gap 10, Estimated GFR 34 L, BUN/Creatinine Ratio 7.5, Glucose 236 H, Calcium 9.6, Total Bilirubin 0.6, AST 35, ALT 50, Alkaline Phosphatase 83, Troponin I < 0.01, Total Protein 6.7, Albumin 4.0, Globulin 2.7, Albumin/ Globulin Ratio 1.5, PT 11.4, INR 1.09, APTT 28, CBC w Diff NO MAN DIFF REQ, RBC 4.10 L, MCV 93.1, MCH 31.9 H, RDW 13.4, MPV 8.9, Gran % 70.6, Lymphocytes % 19.2 L, Monocytes % 8.5, Eosinophils % 1.1, Basophils % 0.6, Absolute Granulocytes 4.8, Absolute Lymphocytes 1.3, Absolute Monocytes 0.6, Absolute Eosinophils 0.1, Absolute Basophils 0, PUBS MCHC 34.2, Acetone Level Pending Initial ED EKG: NONSPECIFIC t-WAVE CHANGES IN v3. Comments: On arrival patient is hypertensive. Given 5 mg amlodipine. EKG is essentially unremarkable with nonspecific T-wave inversion in lead V3. Patient not complaining of any chest pain. Troponin is negative. Patient complaining of generalized abdominal pain which has been chronic for the patient. Guaiac is trace positive slightly. H&H is stable. Patient will follow-up with GI. Patient requesting food. Patient is stressed, no abdominal pain on reevaluation. Discussed with Dr. Caldwell and she agrees with plan, patient follow -up with his primary care physician. He needs pain management. (SHAHRAM WHITTEN) Departure Departure Time of Disposition: 1748 Disposition: HOME OR SELF CARE Condition: Stable Clinical Impression Primary Impression: Chronic abdominal pain Secondary Impressions: Anxiety, Rectal bleeding Referrals: JAIMIE HARRIS,BECKA Lemus (PCP/Family) Additional Instructions: Follow-up with your primary care physician called me complaining. Also follow- up with GI. You need pain management. Continue taking tramadol previously prescribed. Return for worsening symptoms or concerns. Departure Forms: Customer Survey General Discharge Information (SHAHRAM WHITTEN) PA/FILLING HAND Co-Sign Statement Statement: ED Attending supervision documentation- [] I saw and evaluated the patient. I have also reviewed all the pertinent lab results and diagnostic results. I agree with the findings and the plan of care as documented in the PA's/FILLING HAND's documentation. [x] I have reviewed the ED Record and agree with the PA's/FILLING HAND's documentation. [] Additions or exceptions (if any) to the PAs/FILLING HAND's note and plan are summarized below: [] (MERLY HARRIS,LUIS ALFREDO) Critical Care Note Critical Care Note Critical Care Time: 30-74 min (SHAHRMA WHITTEN)
[2016-10-21 16:01] LABS: ABSOLUTE BASOPHIL COUNT 0 /CUMM (0.0-0.2); ABSOLUTE EOSINOPHIL COUNT 0.1 /CUMM (0.0-0.7); ABSOLUTE GRANULOCYTE CT 4.8 /CUMM (1.4-6.5); ABSOLUTE LYMPH COUNT 1.3 /CUMM (1.2-3.4); ABSOLUTE MONOCYTE COUNT 0.6 /CUMM (0.10-0.60); BASOPHIL % 0.6 % (0.0-2.0); EOSINOPHIL % 1.1 % (0-5); GRANULOCYTE % 70.6 % (42.2-75.2); HEMATOCRIT 38.2 % (42-52); MEAN CORPUSCULAR HGB 31.9 PG (27.0-31.0); MEAN CORPUSCULAR HGB CONC 34.2 G/DL (33.0-37.0); MEAN CORPUSCULAR VOLUME 93.1 FL (80.0-94.0); MEAN PLATELET VOLUME 8.9 FL (7.4-10.4); PLATELET COUNT 204 /CUMM (130-400); RBC DISTRIBUTION WIDTH 13.4 % (11.5-14.5); WHITE BLOOD CELL COUNT 6.8 /CUMM (4.8-10.8)
[2016-10-21 16:05] LABS: PT 11.4 SEC (9.4-12.5); PTT 28 SEC (25-37)
[2016-10-21 17:41] VITALS: BP 174/97
== END 2016-10-21 17:57 ==
LOC: ERH 14:42
PROVIDERS: Physician Assistant
DX: G89.29 Other chronic pain (principal); R10.9 Unspecified abdominal pain; K62.5 Hemorrhage of anus and rectum; F41.9 Anxiety disorder, unspecified; I10 Essential (primary) hypertension; E11.9 Type 2 diabetes mellitus without complications; Z72.0 Tobacco use
CPT/HCPCS: 93005; 93010; J3101

== ENCOUNTER 2016-10-28 05:48 | Emergency (ER) | payer OTHER ==
[2016-10-28 06:49] LABS: ABSOLUTE BASOPHIL COUNT 0 /CUMM (0.0-0.2); ABSOLUTE EOSINOPHIL COUNT 0.1 /CUMM (0.0-0.7); ABSOLUTE GRANULOCYTE CT 4.1 /CUMM (1.4-6.5); ABSOLUTE LYMPH COUNT 1.1 /CUMM (1.2-3.4); ABSOLUTE MONOCYTE COUNT 0.6 /CUMM (0.10-0.60); BASOPHIL % 0.3 % (0.0-2.0); EOSINOPHIL % 1.9 % (0-5); GRANULOCYTE % 69.2 % (42.2-75.2); HEMATOCRIT 41.1 % (42-52); MEAN CORPUSCULAR HGB 31.4 PG (27.0-31.0); MEAN CORPUSCULAR HGB CONC 33.5 G/DL (33.0-37.0); MEAN CORPUSCULAR VOLUME 93.6 FL (80.0-94.0); MEAN PLATELET VOLUME 9.2 FL (7.4-10.4); PLATELET COUNT 196 /CUMM (130-400); RBC DISTRIBUTION WIDTH 13.6 % (11.5-14.5); RED BLOOD CELL CT 4.39 /CUMM (4.70-6.10); WHITE BLOOD CELL COUNT 5.9 /CUMM (4.8-10.8)
--- NOTE | 2016-10-28 06:56 | ED GI/GU/ABDOMINAL COMPLAINT ---
History of Present Illness General Chief Complaint: Nausea, Vomiting, Diarrhea Stated Complaint: NAUSEA,VOMITING Source: patient, old records Exam Limitations: no limitations Vital Signs & Intake/Output Vital Signs & Intake/Output Vital Signs Date Time Temp Pulse Resp B/P Pulse O2 O2 Flow FiO2 Ox Delivery Rate 10/28 0918 98.8 76 18 127/89 98 Room Air 10/28 0907 98.8 76 18 127/89 10/28 0803 97.9 90 16 164/95 99 Room Air 10/28 0602 99 Room Air Room Air 10/28 0559 97.2 90 16 178/106 99 Room Air Allergies Coded Allergies: NO KNOWN ALLERGIES (09/24/16) Reconcile Medications Amlodipine Besylate (Unknown Strength) TABLET (Unknown Dose) PO DAILY HEART HEALTH (Reported) Aspirin (Ecotrin*) 81 MG TABLET.DR 1 TAB PO DAILY HEART/BLOOD (Reported) Calcitriol 0.25 MCG CAPSULE 1 CAP PO DAILY BONES (Reported) Cholecalciferol (Vitamin D3) (Vitamin D3) 1,000 UNIT CAPSULE 1 CAP PO DAILY SUPPLEMENT (Reported) Diclofenac Sodium (Voltaren) 100 GM GEL..GRAM. 1 GM TOP 4 TIMES/DAY ARTHRITIS (Reported) apply to affected area(s) Gabapentin 300 MG CAPSULE 1 CAP PO TID NERVE PAIN/MENTAL HEALTH (Reported) Humulin 70-30 (Humulin 70-30 Vial) 100 UNIT/1 ML VIAL 10 UNITS SC QAM AC Diabetes (Reported) Humulin 70-30 (Humulin 70-30 Vial) 100 UNIT/1 ML VIAL 8 UNIT SC QPM AC DIABETES (Reported) Lipase/Protease/Amylase (Kajal Roldan 36,000 Units Capsule) 1 EACH CAPSULE. 1 CAP PO TID PANCREASE (Reported) Lipase/Protease/Amylase (Lisbeth Roldan 40,000 Units Capsule) 40K-136K CAPSULE. 1 CAP PO TID PANCREASE (Reported) Magnesium Oxide (Magnesium) 400 MG CAPSULE 1 CAP PO DAILY MAG Nebivolol HCl (Bystolic) 20 MG TABLET 1 TAB PO DAILY BP (Reported) Omeprazole Magnesium (Prilosec Otc) 20 MG TABLET.DR 1 TAB PO BID GASTRITIS Ondansetron (Zofran Odt) 4 MG TAB.RAPDIS 1 TAB SL TID PRN nausea Ondansetron (Zofran Odt) 4 MG TAB.RAPDIS 1 TAB SL TID PRN NAUSEA Tramadol HCl 50 MG TABLET 1 TAB PO BIDP PRN PAIN (Reported) Tramadol HCl 50 MG TABLET 1-2 TAB PO Q6 PRN pain Zolpidem Tartrate (Ambien) 5 MG TABLET 1 TAB PO QPMP insomnia May repeat in 45 minutes if no effect on sleep Triage Note: 61YO MALE TO RM 7 FROM TRIAGE W/CO ABD PAIN, N,V,D TONITE. Triage Nurses Notes Reviewed? yes Onset: Evening Duration: hour(s):, continues in ED, intermittent Timing: recent history Quality/Severity: aching, moderate, vomiting Location: periumbilical Radiation: no radiation Activities at Onset: none Prior Abdominal Problems: similar symptoms Past Sexual History: Unobtainable at this time Modifying Factors: Worsens With: eating. Associated Symptoms: abdominal pain, loss of appetite, nausea/vomiting HPI: several hours prior to admission patient complains of recurrent nausea vomiting periumbilical discomfort described as achy moderate in severity waxing and waning nonradiating. He denies fever chills chest pain cough shortness of breath headache dysuria rash bleeding (ROSANA CHILD MD) Past History Travel History Traveled to [place] past 21 day No Medical History Any Pertinent Medical History? 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 No (ROSANA CHILD MD) Review of Systems Review of Systems Constitutional: Reports: see HPI, malaise. EENTM: Reports: no symptoms. Respiratory: Reports: no symptoms. Cardiovascular: Reports: no symptoms. GI: Reports: see HPI, abdominal pain, nausea, vomiting. Genitourinary: Reports: no symptoms. Musculoskeletal: Reports: no symptoms. Skin: Reports: no symptoms. Neurological/Psychological: Reports: no symptoms. Hematologic/Endocrine: Reports: no symptoms. Immunologic/Allergic: Reports: no symptoms. All Other Systems: Reviewed and Negative (ROSANA CHILD MD) Physical Exam Physical Exam General Appearance: well developed/nourished, alert, awake, anxious, mild distress Head: atraumatic, normal appearance Eyes: Bilateral: normal appearance, PERRL, EOMI. Ears, Nose, Throat, Mouth: hearing grossly normal, moist mucous membrane Neck: normal inspection, supple, full range of motion, normal alignment, no midline tenderness Respiratory: normal breath sounds, chest non-tender, no respiratory distress, quiet respiration, lungs clear Cardiovascular: regular rate/rhythm, normal peripheral pulses, norml femoral pulses equa Peripheral Pulses: 4+ carotid (R), 4+ carotid (L) Gastrointestinal: soft, non-tender, no organomegaly, abnormal bowel sounds Male Genitals: normal genitalia Back: normal inspection, normal range of motion Extremities: normal range of motion, no ligament instability Neurologic/Psych: no motor/sensory deficits, awake, alert, oriented x 3, normal gait, normal mood/affect, tar leveler II-XII nml as tested Skin: intact, normal color, warm/dry Core Measures ACS in differential dx? No Severe Sepsis Present: No Septic Shock Present: No (ROSANA CHILD MD) Progress Differential Diagnosis: gastritis, peptic ulcer Plan of Care: Orders Procedure Date/time Status Clear Liquid Diet 10/28 L Active LIPASE 10/28 613 Complete COMPREHENSIVE METABOLIC PANEL 10/28 613 Complete CBC WITHOUT DIFFERENTIAL 10/28 613 Complete Laboratory Tests 10/28/16 0630: Anion Gap 10, Estimated GFR 39 L, BUN/Creatinine Ratio 10.0, Glucose 343 H, Calcium 9.7, Total Bilirubin 0.7, AST 24, ALT 33, Alkaline Phosphatase 110, Total Protein 6.8, Albumin 4.1, Globulin 2.7, Albumin/Globulin Ratio 1.5, Lipase 42, CBC w Diff NO MAN DIFF REQ, RBC 4.39 L, MCV 93.6, MCH 31.4 H, RDW 13.6, MPV 9.2, Gran % 69.2, Lymphocytes % 18.2 L, Monocytes % 10.4 H, Eosinophils % 1.9, Basophils % 0.3, Absolute Granulocytes 4.1, Absolute Lymphocytes 1.1 L, Absolute Monocytes 0.6, Absolute Eosinophils 0.1, Absolute Basophils 0, PUBS MCHC 33.5 10/28/2016 7:12:50 AM Patient signed out to Dr. Child. Pending labs and reevaluation. Tolerated PO well, antihypertensives ordered. 9:37 am patient stable for discharge home. (LUIS ALFREDO MORELAND MD) Initial ED EKG: none Hand-Off Endorsed To: LUIS ALFREDO MORELAND MD Endorsed Time: 0700 Pending: labs, other (clinical response) (ROSANA CHILD MD) Departure Departure Time of Disposition: 0650 Condition: Stable Clinical Impression Primary Impression: Nausea and vomiting in adult Secondary Impressions: Abdominal pain Qualifiers: Abdominal location: periumbilical Qualified Code: R10.33 - Periumbilical pain Hyperglycemia due to type 1 diabetes mellitus Hypertension Qualifiers: Hypertension type: essential hypertension Qualified Code: I10 - Essential (primary) hypertension Referrals: BECKA ETIENNE MD (PCP/Family) Departure Forms: Customer Survey General Discharge Information (ROSANA CHILD MD) Departure Time of Disposition: 09 Disposition: HOME OR SELF CARE Additional Instructions: Continue your regular medications and follow-up with her doctor. Take the remainder of your medications when you get home this morning. Take Zofran as needed for nausea. Return as needed. (LUIS ALFREDO MORELAND MD)
[2016-10-28 09:18] VITALS: BP 127/89
== END 2016-10-28 09:52 ==
LOC: ERH 05:48
PROVIDERS: Emergency Medicine
DX: R11.2 Nausea with vomiting, unspecified (principal); R10.33 Periumbilical pain; E10.65 Type 1 diabetes mellitus with hyperglycemia; I10 Essential (primary) hypertension; Z79.4 Long term (current) use of insulin
CPT/HCPCS: 96372; 96374; 96375; J2765

== ENCOUNTER 2016-11-06 06:03 | Emergency (ER) | payer OTHER ==
--- NOTE | 2016-11-06 06:40 | ED CARDIAC/CP/PALPITATIONS ---
History of Present Illness General Chief Complaint: Chest Pain Stated Complaint: CP Source: patient, old records Exam Limitations: poor historian Vital Signs & Intake/Output Vital Signs & Intake/Output Vital Signs Date Time Temp Pulse Resp B/P Pulse O2 O2 Flow FiO2 Ox Delivery Rate 11/06 0928 97.4 70 19 154/78 96 Room Air 11/06 0616 97.0 74 22 157/90 95 Allergies Coded Allergies: NO KNOWN ALLERGIES (09/24/16) Reconcile Medications Amlodipine Besylate (Unknown Strength) TABLET (Unknown Dose) PO DAILY HEART HEALTH (Reported) Aspirin (Ecotrin*) 81 MG TABLET.DR 1 TAB PO DAILY HEART/BLOOD (Reported) Calcitriol 0.25 MCG CAPSULE 1 CAP PO DAILY BONES (Reported) Cholecalciferol (Vitamin D3) (Vitamin D3) 1,000 UNIT CAPSULE 1 CAP PO DAILY SUPPLEMENT (Reported) Diclofenac Sodium (Voltaren) 100 GM GEL..GRAM. 1 GM TOP 4 TIMES/DAY ARTHRITIS (Reported) apply to affected area(s) Gabapentin 300 MG CAPSULE 1 CAP PO TID NERVE PAIN/MENTAL HEALTH (Reported) Humulin 70-30 (Humulin 70-30 Vial) 100 UNIT/1 ML VIAL 10 UNITS SC QAM AC Diabetes (Reported) Humulin 70-30 (Humulin 70-30 Vial) 100 UNIT/1 ML VIAL 8 UNIT SC QPM AC DIABETES (Reported) Lipase/Protease/Amylase (Kajal Roldan 36,000 Units Capsule) 1 EACH CAPSULE.DR 1 CAP PO TID PANCREASE (Reported) Lipase/Protease/Amylase (Lisbeth Roldan 40,000 Units Capsule) 40K-136K CAPSULE. 1 CAP PO TID PANCREASE (Reported) Magnesium Oxide (Magnesium) 400 MG CAPSULE 1 CAP PO DAILY MAG Nebivolol HCl (Bystolic) 20 MG TABLET 1 TAB PO DAILY BP (Reported) Omeprazole Magnesium (Prilosec Otc) 20 MG TABLET.DR 1 TAB PO BID GASTRITIS Ondansetron (Zofran Odt) 4 MG TAB.RAPDIS 1 TAB SL TID PRN nausea Ondansetron (Zofran Odt) 4 MG TAB.RAPDIS 1 TAB SL TID PRN NAUSEA Tramadol HCl 50 MG TABLET 1 TAB PO BIDP PRN PAIN (Reported) Tramadol HCl 50 MG TABLET 1-2 TAB PO Q6 PRN pain Zolpidem Tartrate (Ambien) 5 MG TABLET 1 TAB PO QPMP insomnia May repeat in 45 minutes if no effect on sleep Triage Note: PER PT UNABLE TO AFFORD BP MEDS AND COUGHING THIS AM, PT EMMOTIONAL, PT STATES HAS PAIN IN CHEST AND EVERYWHERE. UNABLE TO PERFROM TRIAGE EKG Triage Nurses Notes Reviewed? yes HPI: Patient presents for evaluation of a lower substernal and epigastric pain that began abruptly prior to arrival. Patient states that he was already awake at the time. He states he felt a cold sweat and describes the pain as a sharp pain that got worse with movement and deep breathing. He thinks he may have even had a subjective fever along with the chills. He has had a cough productive of clear phlegm. He has had vomiting and diarrhea but denies dyspnea dysuria or leg swelling. He is a cigarette smoker. Nothing seemed to make him feel better. Symptoms are described as severe and continue in the emergency department. (ESTRELLITA HARRIS,ARTEMIO Holland) Past History Travel History Traveled to [place] past 21 day No Medical History Any Pertinent Medical History? 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 No (ESTRELLITA HARRIS,ARTEMIO Holland) Review of Systems Review of Systems Constitutional: Reports: no symptoms. EENTM: Reports: no symptoms. Respiratory: Reports: no symptoms. Cardiovascular: Reports: see HPI. GI: Reports: no symptoms. Genitourinary: Reports: no symptoms. Musculoskeletal: Reports: no symptoms. Skin: Reports: no symptoms. Neurological/Psychological: Reports: no symptoms. Hematologic/Endocrine: Reports: no symptoms. Immunologic/Allergic: Reports: no symptoms. All Other Systems: Reviewed and Negative (ESTRELLITA HARRIS,ARTEMIO Holland) Physical Exam Physical Exam Cardiovascular: see below Comments: Gen.: Well-nourished, well-developed, no acute respiratory distress. Head: Normocephalic, atraumatic. Eyes: Normal inspection bilaterally Ears: Normal inspection bilaterally Nose: Normal inspection Throat/mouth : Moist mucosa Neck: Supple, full range of motion, no goiter Heart: Regular rate and rhythm, no murmurs rubs or gallops Lungs: Clear to auscultation bilaterally with normal air entry Chest: Nontender Back: Normal range of motion Abdomen: Soft, nontender, nondistended, normal bowel sounds Extremities: Normal range of motion grossly, equal radial pulses, no cyanosis clubbing or edema Neurologic: Cranial nerves grossly intact, speech is clear Skin: warm and dry Psychiatric: Calm, cooperative, no apparent delusions or hallucinations Core Measures Severe Sepsis Present: No Septic Shock Present: No (ESTRELLITA HARRIS,ARTEMIO Holland) Core Measures ACS in differential dx? Yes (MARCOS HARRIS,BECKA Pickering) Progress Differential Diagnosis: AMI, musculoskeletal pain, pneumonia, pneumothorax, unstable angina Plan of Care: Orders Procedure Date/time Status Regular Diet 11/06 L Active URINALYSIS 11/06 0832 Complete Telemetry/Auxiliary Engineer 11/06 0639 Active TROPONIN LEVEL 11/06 0639 Complete MAGNESIUM 11/06 0639 Complete CBC WITHOUT DIFFERENTIAL 11/06 0639 Complete BASIC METABOLIC PANEL 11/06 0639 Complete EKG 11/06 0605 Active Laboratory Tests 11/06/16 0845: Urinalysis LIGHT H, Urine Color YEL, Urine Clarity CLEAR, Urine pH 7.0, Ur Specific [place] 1.010, Urine Protein 30 H, Urine Ketones 15 H, Urine Nitrite NEG, Urine Bilirubin NEG, Urine Urobilinogen 0.2, Ur Leukocyte Esterase NEG, Ur Microscopic SEDIMENT EXAMINED, Urine RBC RARE, Urine WBC 1-3 H, Ur Epithelial Cells RARE, Urine Hemoglobin NEG, Urine Glucose NEG 11/06/16 0654: Anion Gap 13, Estimated GFR 34 L, BUN/Creatinine Ratio 11.5, Glucose 141 H, Calcium 10.8 H, Magnesium 1.5 L, Troponin I < 0.01, CBC w Diff NO MAN DIFF REQ , RBC 4.67 L, MCV 93.2, MCH 31.7 H, RDW 12.9, MPV 9.2, Gran % 71.8, Lymphocytes % 17.1 L, Monocytes % 8.9, Eosinophils % 1.5, Basophils % 0.7, Absolute Granulocytes 6.1, Absolute Lymphocytes 1.5, Absolute Monocytes 0.8 H, Absolute Eosinophils 0.1, Absolute Basophils 0.1, PUBS MCHC 34.0 Comments: 11/06/2016 7:21:44 AM patient signed out to Dr. Olmedo at shift exchange clerk. (ESTRELLITA HARRIS,ARTEMIO Holland) Diagnostic Imaging: Viewed by Me: Radiology Read. Discussed w/RAD: Radiology Read. CXR Impression: PATIENT: MANJU ERICKSON PRESENT AGE: 61 PATIENT ACCOUNT NO: [id number] : 59 LOCATION: [facility] ORDERING PHYSICIAN: ARTEMIO HARO MD SERVICE DATE: 11/06/16 EXAM TYPE: RAD - XRY-PORTABLE CHEST XRAY EXAMINATION: XR PORTABLE CHEST CLINICAL INFORMATION: Chest pain COMPARISON: 01/20/2016 chest x-ray TECHNIQUE: Portable AP view of the chest was obtained. FINDINGS: Heart size is upper limits of normal and unchanged. The aorta is tortuous. Pulmonary vascularity is normal. There is no pulmonary edema. The lungs are clear. No pleural effusion or pneumothorax is identified. IMPRESSION: Borderline heart size and tortuous aorta. Lungs are normally expanded and grossly clear. There is no change from prior DICTATED BY: PRIYA SHAFER MD DATE/TIME DICTATED:11/06/16743 FAMILY CASEWORKER:VY DATE/ TIME TRANSCRIBED:11/06/16743 CONFIDENTIAL, DO NOT COPY WITHOUT APPROPRIATE AUTHORIZATION. <Electronically signed in Other Vendor System> SIGNED BY: PRIYA SHAFER MD 11/06/16 0749 Initial ED EKG: NSR, nonspecific ST T wave chg Prior EKG: unchanged Comments: PT REFUSING TO STAY FOR REPEAT LABS. HE STATES THAT HE HAS HAD THESE SYMPTOMS MULTPILE TIMES IN THE PAST. PT ADVISED THAT WE CAN NOT BE SURE THAT IT IS HIS HEART CAUSING THESE SYMPTOMS AND THAT WE RECOMMEND HIM STAYING FOR FURTHER EVALUATIUON. PT IS ALERT AND ORIENTED X 3 AND IS COMPETANT TO MAKE DECISIONS. (MARCOS HARRIS,BECKA Pickering) Departure Departure Condition: Stable Referrals: JAIMIE HARRIS,BECKA Lemus (PCP/Family) Departure Forms: Customer Survey General Discharge Information (ESTRELLITA HARRIS,ARTEMIO Holland) Departure Disposition: HOME OR SELF CARE Clinical Impression Primary Impression: Chest pain, unspecified Qualifiers: Chest pain type: other chest pain Qualified Code: R07.89 - Other chest pain Additional Instructions: RETURN FOR FURTHER EVALUATION (MARCOS HARRIS,BECKA Pickering) Critical Care Note Critical Care Note Critical Care Time: non-applicable (MARCOS HARRIS,BECKA Pickering)
[2016-11-06 07:09] LABS: ABSOLUTE BASOPHIL COUNT 0.1 /CUMM (0.0-0.2); ABSOLUTE EOSINOPHIL COUNT 0.1 /CUMM (0.0-0.7); ABSOLUTE GRANULOCYTE CT 6.1 /CUMM (1.4-6.5); ABSOLUTE LYMPH COUNT 1.5 /CUMM (1.2-3.4); ABSOLUTE MONOCYTE COUNT 0.8 /CUMM (0.10-0.60); BASOPHIL % 0.7 % (0.0-2.0); EOSINOPHIL % 1.5 % (0-5); GRANULOCYTE % 71.8 % (42.2-75.2); HEMATOCRIT 43.5 % (42-52); MEAN CORPUSCULAR HGB 31.7 PG (27.0-31.0); MEAN CORPUSCULAR VOLUME 93.2 FL (80.0-94.0); MEAN PLATELET VOLUME 9.2 FL (7.4-10.4); PLATELET COUNT 226 /CUMM (130-400); RBC DISTRIBUTION WIDTH 12.9 % (11.5-14.5); RED BLOOD CELL CT 4.67 /CUMM (4.70-6.10); WHITE BLOOD CELL COUNT 8.6 /CUMM (4.8-10.8)
--- NOTE | 2016-11-06 07:49 | RADIOLOGY REPORT ---
EXAMINATION: XR PORTABLE CHEST CLINICAL INFORMATION: Chest pain COMPARISON: 01/20/2016 chest x-ray TECHNIQUE: Portable AP view of the chest was obtained. FINDINGS: Heart size is upper limits of normal and unchanged. The aorta is tortuous. Pulmonary vascularity is normal. There is no pulmonary edema. The lungs are clear. No pleural effusion or pneumothorax is identified. IMPRESSION: Borderline heart size and tortuous aorta. Lungs are normally expanded and grossly clear. There is no change from prior
[2016-11-06 09:28] VITALS: BP 154/78
== END 2016-11-06 10:25 ==
LOC: ERH 06:03
PROVIDERS: Emergency Medicine
DX: R07.9 Chest pain, unspecified (principal); R11.10 Vomiting, unspecified; R19.7 Diarrhea, unspecified
CPT/HCPCS: 80307; 81001; 93005; 93010; G0480

== ENCOUNTER 2016-11-06 11:47 | Emergency (ER) | payer OTHER ==
[~2016-11-06] VITALS: Ht 170.2 cm; Wt 70.3 kg
--- NOTE | 2016-11-06 11:54 | ED CARDIAC/CP/PALPITATIONS ---
History of Present Illness General Chief Complaint: Chest Pain Stated Complaint: CP/ABD PAIN Source: patient, old records Exam Limitations: no limitations Vital Signs & Intake/Output Vital Signs & Intake/Output Vital Signs Date Time Temp Pulse Resp B/P Pulse O2 O2 Flow FiO2 Ox Delivery Rate 11/06 1355 97.6 80 20 162/94 97 Room Air 11/06 1148 98.5 102 16 150/98 98 Room Air Allergies Coded Allergies: NO KNOWN ALLERGIES (11/06/16) Reconcile Medications Amlodipine Besylate (Unknown Strength) TABLET (Unknown Dose) PO DAILY HEART HEALTH (Reported) Aspirin (Ecotrin*) 81 MG TABLET.DR 1 TAB PO DAILY HEART/BLOOD (Reported) Calcitriol 0.25 MCG CAPSULE 1 CAP PO DAILY BONES (Reported) Cholecalciferol (Vitamin D3) (Vitamin D3) 1,000 UNIT CAPSULE 1 CAP PO DAILY SUPPLEMENT (Reported) Diclofenac Sodium (Voltaren) 100 GM GEL..GRAM. 1 GM TOP 4 TIMES/DAY ARTHRITIS (Reported) apply to affected area(s) Gabapentin 300 MG CAPSULE 1 CAP PO TID NERVE PAIN/MENTAL HEALTH (Reported) Humulin 70-30 (Humulin 70-30 Vial) 100 UNIT/1 ML VIAL 10 UNITS SC QAM AC Diabetes (Reported) Humulin 70-30 (Humulin 70-30 Vial) 100 UNIT/1 ML VIAL 8 UNIT SC QPM AC DIABETES (Reported) Lipase/Protease/Amylase (Kajal Roldan 36,000 Units Capsule) 1 EACH CAPSULE. 1 CAP PO TID PANCREASE (Reported) Lipase/Protease/Amylase (Lisbeth Roldan 40,000 Units Capsule) 40K-136K CAPSULE. 1 CAP PO TID PANCREASE (Reported) Magnesium Oxide (Magnesium) 400 MG CAPSULE 1 CAP PO DAILY MAG Nebivolol HCl (Bystolic) 20 MG TABLET 1 TAB PO DAILY BP (Reported) Omeprazole Magnesium (Prilosec Otc) 20 MG TABLET.DR 1 TAB PO BID GASTRITIS Ondansetron (Zofran Odt) 4 MG TAB.RAPDIS 1 TAB SL TID PRN nausea Ondansetron (Zofran Odt) 4 MG TAB.RAPDIS 1 TAB SL TID PRN NAUSEA Tramadol HCl 50 MG TABLET 1 TAB PO BIDP PRN PAIN (Reported) Tramadol HCl 50 MG TABLET 1-2 TAB PO Q6 PRN pain Zolpidem Tartrate (Ambien) 5 MG TABLET 1 TAB PO QPMP insomnia May repeat in 45 minutes if no effect on sleep Triage Note: C/O GENERALIZED ABD PAIN AND PAIN IN TESTICLES. PT WAS SEEN EARLIER, LEFT WITHOUT BEING DISCHARGED. PT NOW WANTS TO RETURN TO COMPLETE EVAL Triage Nurses Notes Reviewed? yes HPI: Patient return to the emergency department with continued epigastric pain and now getting a crampy sensation in his right inner thigh. Patient was seen this morning but left prior to his second set of enzymes. Patient has been seen by urologist multiple times for this groin and right thigh pain and no etiology for the pain has been found. Patient is very anxious because he states she does not know how he is going to pay for his pills. Patient states that he cannot afford his medications. Patient states that he is getting more anxious and depressed. Patient denies any suicidal homicidal ideations. Patient has multiple ED visits. Past History Travel History Traveled to [place] past 21 day No Medical History Any Pertinent Medical History? 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 No Review of Systems Review of Systems Constitutional: Reports: no symptoms. EENTM: Reports: no symptoms. Respiratory: Reports: no symptoms. Cardiovascular: Reports: no symptoms. GI: Reports: see HPI, abdominal pain. Genitourinary: Reports: no symptoms. Musculoskeletal: Reports: see HPI. Skin: Reports: no symptoms. Neurological/Psychological: Reports: no symptoms. Hematologic/Endocrine: Reports: no symptoms. Immunologic/Allergic: Reports: no symptoms. All Other Systems: Reviewed and Negative Physical Exam Physical Exam General Appearance: well developed/nourished, alert, awake Head: atraumatic, normal appearance Eyes: Bilateral: PERRL, EOMI, other (ANICTERIC). Ears, Nose, Throat: normal pharynx, normal ENT inspection, hearing grossly normal Neck: normal inspection, supple, full range of motion, NO jvd Respiratory: normal breath sounds, chest non-tender, no respiratory distress, lungs clear Cardiovascular: regular rate/rhythm, normal peripheral pulses Gastrointestinal: normal bowel sounds, soft, non-tender, no organomegaly Back: normal inspection, normal range of motion Extremities: normal inspection, normal capillary refill, normal range of motion, no edema Neurologic/Psych: no motor/sensory deficits, awake, alert, oriented x 3, normal gait, normal mood/affect Skin: intact, normal color, warm/dry Lymphatic: no anterior cervical kelley Core Measures ACS in differential dx? No Severe Sepsis Present: No Septic Shock Present: No Progress Differential Diagnosis: AMI, ANXIETY, DEPRESSION Plan of Care: Orders Procedure Date/time Status Add-on Test (ER Only) 11/06 1212 Active ED CRISIS PSYCH CONSULT 11/06 1212 Active TROPONIN LEVEL 11/06 1154 Complete Laboratory Tests 11/06/16 1218: Methadone Screen Cancelled, Barbiturate Screen Cancelled, Ur Phencyclidine Scrn Cancelled, Amphetamines Screen Cancelled, U Benzodiazepines Scrn Cancelled, Urine Cocaine Screen Cancelled, Urine Cannabis Screen Cancelled 11/06/16 1200: Troponin I < 0.01 Initial ED EKG: none Comments: PT HAS BEEN SEEN BY THE HUMAN CAPITAL ANALYST FOR INCREASING ANXIETY AND DEPRESSION. Departure Departure Disposition: HOME OR SELF CARE Condition: Stable Clinical Impression Primary Impression: Depression Referrals: JAIMIE HARRIS,BECKA Lemus (PCP/Family) Additional Instructions: FOLLOW UP WITH [facility] RETURN FOR ANY COCNERNS Departure Forms: Customer Survey General Discharge Information Critical Care Note Critical Care Note Critical Care Time: non-applicable
[2016-11-06 13:55] VITALS: BP 162/94
--- NOTE | 2016-11-06 14:39 | ED PSYCH CRISIS CONSULTATION ---
Crisis Consult Basic Assessment Date of Consult: 11/06/16 Responsible Person/Accompanied By: self Insurance Authorization: Insurance #1: Insurance name: MEDICARE [employer] HMO Phone number: Policy number: [id number] Group number: [id number] Authorization number: ED Provider: Patient's ED Provider: BECKA RODRÍGUEZ MD Primary Care Physician: Patient's PCP: BECKA ETIENNE MD PCP's Current Psychiatrist: [facility] Chief Complaint: Chest Pain Patient's Quote: "I just needed to talk with someone." Present Illness: The pt is a 61yo never male who presented to the ED 2x today for chest and abdominal pain. The pt also reported experiencing anxiety related to his medical conditions and financial pressures. This is the pts 40th presentation to the ED in the past 12 months. The pts visits to the ED over the past year have been for various medical issues. During this assessment the pt presented calm, cooperative and pleasant with goal directed speech. The pt reports "I just needed to talk with someone." The pt denied SI, HI, AH, VH and paranoia. At the time of this assessment the pt denied any mood related issues. The pt reports long standing difficulty with sleep and stated he sleeps 4-6 hours at night and naps during the day. The pt reports a poor appetite due to his medical issues. The pt denies any history of attempting to harm himself. The pt denies any drug and alcohol use, his toxicology screen is negative. The pt stated he is currently in medication management with [facility] and his last appointment was approximately 2 weeks ago. The pt stated he is prescribed Lexapro, Gabapentin and Xanax. The pt reports he takes his medication as prescribed and believes the medications are effective. The pt could not identify the dosages for each medication. The pt stated he ended his individual therapy at [facility] 2-3 years ago due to not being able to afford the copay. The pt reports that approximately 2000 he had a nervous breakdown and was admitted to [facility] (record not available). The pt reports since that time he has been in treatment at [facility]. The pt stated he is restarting pain management in approximately 1 week. The pt lives by himself and stated for support in addition to [facility] he talks with a few neighbors. The pt stated his parents are and that he does not have any family he communicates with on a regular basis. 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 The pt stated he is considering moving to a warmer climate. Pts presentation discussed with Dr. Hall, plan is for discharge to continue in treatment at [facility]. The pt is in agreement with this plan. Pt agreed to call [facility] on 11/07/16 and request an earlier appt. The pt reports his next scheduled appt is in approximately 10 days. Encouraged the pt restart individual therapy at [facility] and discuss with [facility] his inability to pay his copay. The pt declined to have this evaluation sent to [facility]. Patient's Address: [address] [place] [address] Other Who Do You Live With? Patient/Self Family/Informants Interviewed: no family/collateral ID'd Allergies - Coded Allergies: NO KNOWN ALLERGIES (11/06/16) Current Medications - Scheduled Medications Amlodipine Besylate (Unknown Strength) TABLET (Unknown Dose) PO DAILY HEART HEALTH #30 (Reported) Entered as Reported by GONZALES ROSARIO on 04/29/16 1915 Aspirin (Ecotrin*) 81 MG TABLET.DR 1 TAB PO DAILY HEART/BLOOD (Reported) Entered as Reported by TOM PEDRAZA on 10/18/16 1548 Calcitriol 0.25 MCG CAPSULE 1 CAP PO DAILY BONES (Reported) Entered as Reported by TOM PEDRAZA on 10/18/16 1548 Cholecalciferol (Vitamin D3) (Vitamin D3) 1,000 UNIT CAPSULE 1 CAP PO DAILY SUPPLEMENT (Reported) Entered as Reported by TOM PEDRAZA on 10/18/16 1549 Diclofenac Sodium (Voltaren) 100 GM GEL..GRAM. 1 GM TOP 4 TIMES/DAY ARTHRITIS #100 (Reported) Entered as Reported by TOM PEDRAZA on 03/30/16 1958 Gabapentin 300 MG CAPSULE 1 CAP PO TID NERVE PAIN/MENTAL HEALTH #30 (Reported ) Entered as Reported by TOM PEDRAZA on 02/28/16 1833 Humulin 70-30 (Humulin 70-30 Vial) 100 UNIT/1 ML VIAL 10 UNITS SC QAM AC Diabetes (Reported) Entered as Reported by TOM PEDRAZA on 12/21/15 1905 Humulin 70-30 (Humulin 70-30 Vial) 100 UNIT/1 ML VIAL 8 UNIT SC QPM AC DIABETES (Reported) Entered as Reported by TOM PEDRAZA on 02/28/16 1831 Lipase/Protease/Amylase (Kajal Roldan 36,000 Units Capsule) 1 EACH CAPSULE.DR Nielsen CAP PO TID PANCREASE (Reported) Entered as Reported by TOM PEDRAZA on 12/21/15 1906 Lipase/Protease/Amylase (Lisbeth Roldan 40,000 Units Capsule) 40K-136K CAPSULE. 1 CAP PO TID PANCREASE #210 (Reported) Entered as Reported by TOM PEDRAZA on 10/18/16 1551 Magnesium Oxide (Magnesium) 400 MG CAPSULE 1 CAP PO DAILY MAG #30 CAP Prescribed by MO CHAPMAN PA-C on 03/30/16 Nebivolol HCl (Bystolic) 20 MG TABLET 1 TAB PO DAILY BP #90 (Reported) Entered as Reported by TOM PEDRAZA on 03/30/16 1958 Omeprazole Magnesium (Prilosec Otc) 20 MG TABLET.DR Nielsen TAB PO BID GASTRITIS #60 TAB Prescribed by CHUCK SIMPSON MD on 09/23/16 Zolpidem Tartrate (Ambien) 5 MG TABLET 1 TAB PO QPMP insomnia #30 TAB Prescribed by ROSANA CHILD MD on 05/18/16 Scheduled PRN Medications Ondansetron (Zofran Odt) 4 MG TAB.RAPDIS 1 TAB SL TID PRN nausea #10 TAB Prescribed by MO BISHOP on 10/18/16 Ondansetron (Zofran Odt) 4 MG TAB.RAPDIS 1 TAB SL TID PRN NAUSEA #10 TAB Prescribed by SHAHRAM WHITTEN on 10/11/16 Tramadol HCl 50 MG TABLET 1 TAB PO BIDP PRN PAIN #60 (Reported) Entered as Reported by BETH JACKSON on 07/27/16 1219 Tramadol HCl 50 MG TABLET 1-2 TAB PO Q6 PRN pain #15 TAB Prescribed by MO BISHOP on 10/18/16 Laboratory Results: Laboratory Tests 11/06/16 1218: Methadone Screen Cancelled, Barbiturate Screen Cancelled, Ur Phencyclidine Scrn Cancelled, Amphetamines Screen Cancelled, U Benzodiazepines Scrn Cancelled, Urine Cocaine Screen Cancelled, Urine Cannabis Screen Cancelled 11/06/16 1200: Troponin I < 0.01 Past History Past Medical History Neurological: NONE EENT: allergies Cardiovascular: hypertension Respiratory: NONE Gastrointestinal: constipation, chronic pancreatitis noticed on CAT scan Hepatic: NONE Renal: NONE Musculoskeletal: chronic back pain, ARTHRITIS Psychiatric: NONE Endocrine: diabetes Blood Disorders: NONE Cancer(s): NONE 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 Physical Limitations (Interventions): arthritis, back pain Psychiatric Treatment History Psych Treatment Psychiatric Treatment Yes Inpatient Treatment Yes Outpatient Treatment Yes Location of Treatment outpt[facility] Reason for Treatment pt reports inpt was for a "nervous breakdown." Oupt for depression and anxiety Dates of Treatment Inpt- approximately 2000, Care since then Response to Treatment Pt reports a positive response. Diagnosis by History: depression, anxiety Substance Use/Abuse History Drug Use/Abuse Substances Used/Abused No Substance Abuse Treatment Substance Abuse Treatment Past Substance Abuse [place] No Current Mental Status Mental Status Orientation: Person, Place, Situation Affect: WNL Speech: WNL Neuro-vegetative: Sleep Disturbance Appearance Appearance- Dress/Hygiene: appropriate Behaviors Thought Process: WNL Thought Content: WNL Memory: WNL Insight: WNL SI/HI Risk Assessment Past Suicidal Ideation/Attempts No (pt denies) Current Suicidal Ideation/Att No Past Homicidal Ideation/Att: No Current Homicidal Ideation/Attempts No Degree of Intent: None Danger To: Others (n/a) Risk Factors: chronic/serious med cond., high anxiety/distress, SA/MH hospitalized, lives alone, male, limited support Lethality Ratin (mild) PTSD Checklist PTSD Done? patient declined ED Management Sitter: Yes Restraints: No DSM5/PS Stressors/Medical Prob Diagnosis' (DSM 5, Stressors, Medical): F41.9 Unspecified Anxiety Dis F32.9 Unspecified Depressive Dis Diabetes Arthritis Chronic Back Pain Current GAF: 50 Departure Disposition Psych Medical Clearance Date: 11/06/16 Medically Cleared at: 1230 Time Started: 1300 Time Ended: 1335 Psychiatrist Consulted: Dr. Hall Date Disposition Established: 11/06/16 Time Disposition Established: 1400 Plan for Disposition - Modality: Outpatient Facility: [facility] Rationale for Disposition: Pt is not in need of psychiatric hospitalization. Referrals BECKA ETIENNE MD (PCP/Family)
== END 2016-11-06 14:34 ==
LOC: ERH 11:47
DX: F32.9 Major depressive disorder, single episode, unspecified (principal)
CPT/HCPCS: 80307; G0463

== ENCOUNTER 2016-11-11 15:31 | Emergency (ER) | payer OTHER ==
[~2016-11-11] VITALS: Ht 170.2 cm; Wt 70.3 kg
[2016-11-11 15:38] VITALS: BP 188/100
--- NOTE | 2016-11-11 16:09 | ED GI/GU/ABDOMINAL COMPLAINT ---
History of Present Illness General Chief Complaint: Male Genitourinary Problems Stated Complaint: LOWER GENTIAL PAIN Source: patient, old records Exam Limitations: no limitations Vital Signs & Intake/Output Vital Signs & Intake/Output Vital Signs Date Time Temp Pulse Resp B/P Pulse O2 O2 Flow FiO2 Ox Delivery Rate 11/11 1538 98.7 70 20 188/100 97 Room Air Allergies Coded Allergies: NO KNOWN ALLERGIES (11/11/16) Triage Note: TRIAGE: PT TO ER C/C PAIN TO ABD AND "DOWN THERE" POINTING TO PENIS AREA S/P U/S THIS MORNING. REQUESTING A TORADOL SHOT FOR PAIN. RATES PAIN 06/20. Triage Nurses Notes Reviewed? yes HPI: Patient is a 61-year-old male presents complaining of abdominal pain, penile pain, testicular pain. Patient reports he has had similar episodes previously. Patient was seen by his urologist today, had a urine culture and testicular ultrasound prior to arrival. Patient was placed on Bactrim, took one dose today with no improvement. Patient reports his abdominal pain is consistent with his chronic abdominal pain. Patient has been monitoring his blood sugar at home, reports his blood sugar was 199 prior to arrival. Patient denies fevers, chills (MO BISHOP) Reconcile Medications Amlodipine Besylate 5 MG TABLET 1 TAB PO DAILY HEART (Reported) Aspirin (Ecotrin*) 81 MG TABLET. 1 TAB PO DAILY HEART/BLOOD (Reported) Calcitriol 0.25 MCG CAPSULE 1 CAP PO DAILY BONES (Reported) Cholecalciferol (Vitamin D3) (Vitamin D3) 1,000 UNIT CAPSULE 1 CAP PO DAILY SUPPLEMENT (Reported) Diclofenac Sodium (Voltaren) 100 GM GEL..GRAM. 1 GM TOP 4 TIMES/DAY ARTHRITIS (Reported) apply to affected area(s) Gabapentin 300 MG CAPSULE 1 CAP PO TID NERVE PAIN/MENTAL HEALTH (Reported) Humulin 70-30 (Humulin 70-30 Vial) 100 UNIT/1 ML VIAL 10 UNITS SC QAM AC Diabetes (Reported) Humulin 70-30 (Humulin 70-30 Vial) 100 UNIT/1 ML VIAL 8 UNIT SC QPM AC DIABETES (Reported) Lipase/Protease/Amylase (Kajal Roldan 36,000 Units Capsule) 1 EACH CAPSULE. 1 CAP PO TID PANCREASE (Reported) Lipase/Protease/Amylase (Lisbeth Roldan 40,000 Units Capsule) 40K-136K CAPSULE. 1 CAP PO TID PANCREASE (Reported) Magnesium Oxide (Magnesium) 400 MG CAPSULE 1 CAP PO DAILY MAG Nebivolol HCl (Bystolic) 20 MG TABLET 1 TAB PO DAILY BP (Reported) Omeprazole Magnesium (Prilosec Otc) 20 MG TABLET.DR 1 TAB PO BID GASTRITIS Ondansetron (Zofran Odt) 4 MG TAB.RAPDIS 1 TAB SL TID PRN nausea Tramadol HCl 50 MG TABLET 1-2 TAB PO Q6 PRN pain Zolpidem Tartrate (Ambien) 5 MG TABLET 1 TAB PO QPMP insomnia May repeat in 45 minutes if no effect on sleep (MERLY HARRIS,LUIS ALFREDO) Past History Travel History Traveled to [place] past 21 day No Medical History Any Pertinent Medical History? 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 No (MO BISHOP) Review of Systems Review of Systems Constitutional: Denies: chills, fever. EENTM: Reports: no symptoms. Respiratory: Denies: cough, short of breath. Cardiovascular: Denies: chest pain. GI: Reports: abdominal pain (consistent with chronic pain). Denies: diarrhea, nausea, vomiting. Genitourinary: Reports: see HPI. Denies: discharge, hematuria. Musculoskeletal: Denies: back pain, neck pain. Skin: Reports: no symptoms. Neurological/Psychological: Reports: no symptoms. Hematologic/Endocrine: Denies: bruising, bleeding. Immunologic/Allergic: Denies: splenectomy. (MO BISHOP) Physical Exam Physical Exam General Appearance: well developed/nourished, alert, awake Head: atraumatic, normal appearance Eyes: Bilateral: normal appearance, PERRL, EOMI. Ears, Nose, Throat, Mouth: hearing grossly normal, moist mucous membrane Neck: normal inspection, supple, full range of motion Respiratory: normal breath sounds, chest non-tender, no respiratory distress, lungs clear Cardiovascular: regular rate/rhythm Gastrointestinal: normal bowel sounds, soft, non-tender Male Genitals: exam deferred as patient saw his urologist prior to arrival. Back: normal inspection, normal range of motion Extremities: normal range of motion Neurologic/Psych: no motor/sensory deficits, awake, alert, oriented x 3, normal gait, normal mood/affect Skin: intact, normal color, warm/dry Core Measures ACS in differential dx? No Severe Sepsis Present: No Septic Shock Present: No (MO BISHOP) Progress Differential Diagnosis: pancreatitis, prostatitis, ureterolithiasis, urinary retention, urethritis, UTI/pyelo, chronic pain Plan of Care: Current Medications Sig/Martir Start time Last Medication Dose Stop Time Status Admin Ketorolac 30 MG ONCE ONE 11/11 1630 UNVr Tromethamine 11/11 163 (Toradol) Patient requesting a shot of Toradol. Discussed with patient his chronic kidney disease and that repeated doses of Toradol can be dangerous for him. Patient reports that he does not frequently get Toradol and understands the risks. Patient afebrile, nontoxic-appearing, had urine culture and testicular OUTPATIENT. FURTHER LABS AND IMAGING DEFERRED SECONDARY TO EXAM. RESULTS OF ULTRASOUND REVIEWED. (MO BISHOP) Initial ED EKG: none (MO BISHOP) Departure Departure Time of Disposition: 1632 Disposition: HOME OR SELF CARE Condition: Stable Clinical Impression Primary Impression: Testicular pain Secondary Impressions: Chronic abdominal pain Referrals: JAIMIE HARRIS,BECKA Lemus (PCP/Family) Additional Instructions: Follow up with Dr. Burleson next week if no improvement by Monday. Return to the emergency department if fevers, difficulty urinating, or worsening symptoms. Continue taking the Bactrim as previously directed. Departure Forms: Customer Survey General Discharge Information (MO BISHOP) PA/MATHEMATICAL STATISTICIAN Co-Sign Statement Statement: ED Attending supervision documentation- [] I saw and evaluated the patient. I have also reviewed all the pertinent lab results and diagnostic results. I agree with the findings and the plan of care as documented in the PA's/MATHEMATICAL STATISTICIAN's documentation. [X] I have reviewed the ED Record and agree with the PA's/MATHEMATICAL STATISTICIAN's documentation. [] Additions or exceptions (if any) to the PAs/MATHEMATICAL STATISTICIAN's note and plan are summarized below: [] (MERLY HARRIS,LUIS ALFREDO)
== END 2016-11-11 16:54 ==
LOC: ERH 15:31
DX: N50.819 Testicular pain, unspecified (principal); R10.9 Unspecified abdominal pain; G89.29 Other chronic pain
CPT/HCPCS: 96372; J1885

== ENCOUNTER 2016-11-13 06:11 | Emergency (ER) | payer OTHER ==
[~2016-11-13] VITALS: Ht 170.2 cm; Wt 70.3 kg
--- NOTE | 2016-11-13 06:33 | ED GI/GU/ABDOMINAL COMPLAINT ---
History of Present Illness General Chief Complaint: General Adult Stated Complaint: " I DON'T FEEL WELL" Source: patient, old records Exam Limitations: no limitations Vital Signs & Intake/Output Vital Signs & Intake/Output Vital Signs Date Time Temp Pulse Resp B/P Pulse O2 O2 Flow FiO2 Ox Delivery Rate 11/13 0736 98.7 78 18 138/78 96 Room Air 11/13 0648 94 Room Air 11/13 0623 96.4 82 18 165/87 94 Room Air Allergies Coded Allergies: NO KNOWN ALLERGIES (11/11/16) Triage Note: PT STATES HE FEELS LIKE HE HAS A FEVER, THE SWEATS , ABDOMINAL PAIN. STATES HE IS NAUSEOUS, VOMITED LAST NIGHT. DENIES DIZZINESS Triage Nurses Notes Reviewed? yes HPI: Patient presents for continued chest pain abdominal pain and groin pain. Patient has multiple ED visits for the same. The pain in his chest and abdomen. The epigastric area and then her pressure sensation. It is constant. There are no aggravating or mitigating factors. He rates it as 6 out of 10. There is no radiation. The pain in the testicle is on the left side and that is intermittent. And is achy pain. The pain lasts a few hours then goes away. Patient states that he's been having nausea vomiting diarrhea. Patient patient has not seen his primary care physician for these issues. Patient had a CT scan a month ago and an ultrasound 2 days ago. (MARCOS HARRIS,BECKA Pickering) Reconcile Medications Amlodipine Besylate 5 MG TABLET 1 TAB PO DAILY HEART (Reported) Aspirin (Ecotrin*) 81 MG TABLET. 1 TAB PO DAILY HEART/BLOOD (Reported) Calcitriol 0.25 MCG CAPSULE 1 CAP PO DAILY BONES (Reported) Cholecalciferol (Vitamin D3) (Vitamin D3) 1,000 UNIT CAPSULE 1 CAP PO DAILY SUPPLEMENT (Reported) Diclofenac Sodium (Voltaren) 100 GM GEL..GRAM. 1 GM TOP 4 TIMES/DAY ARTHRITIS (Reported) apply to affected area(s) Gabapentin 300 MG CAPSULE 1 CAP PO TID NERVE PAIN/MENTAL HEALTH (Reported) Humulin 70-30 (Humulin 70-30 Vial) 100 UNIT/1 ML VIAL 10 UNITS SC QAM AC Diabetes (Reported) Humulin 70-30 (Humulin 70-30 Vial) 100 UNIT/1 ML VIAL 8 UNIT SC QPM AC DIABETES (Reported) Lipase/Protease/Amylase (Kajal Roldan 36,000 Units Capsule) 1 EACH CAPSULE. 1 CAP PO TID PANCREASE (Reported) Lipase/Protease/Amylase (Lisbeth Roldan 40,000 Units Capsule) 40K-136K CAPSULE. 1 CAP PO TID PANCREASE (Reported) Magnesium Oxide (Magnesium) 400 MG CAPSULE 1 CAP PO DAILY MAG Nebivolol HCl (Bystolic) 20 MG TABLET 1 TAB PO DAILY BP (Reported) Omeprazole Magnesium (Prilosec Otc) 20 MG TABLET.DR 1 TAB PO BID GASTRITIS Ondansetron (Zofran Odt) 4 MG TAB.RAPDIS 1 TAB SL TID PRN nausea Tramadol HCl 50 MG TABLET 1-2 TAB PO Q6 PRN pain Zolpidem Tartrate (Ambien) 5 MG TABLET 1 TAB PO QPMP insomnia May repeat in 45 minutes if no effect on sleep (MATEUSZ HARRIS,ROSANA) Past History Travel History Traveled to [place] past 21 day No Medical History Any Pertinent Medical History? 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 No (MARCOS HARRIS,BECKA Pickering) Review of Systems Review of Systems Constitutional: Reports: no symptoms. EENTM: Reports: no symptoms. Respiratory: Reports: no symptoms. Cardiovascular: Reports: see HPI, chest pain. GI: Reports: see HPI, abdominal pain. Genitourinary: Reports: see HPI, pain. Musculoskeletal: Reports: no symptoms. Skin: Reports: no symptoms. Neurological/Psychological: Reports: no symptoms. Hematologic/Endocrine: Reports: no symptoms. Immunologic/Allergic: Reports: no symptoms. All Other Systems: Reviewed and Negative (MARCOS HARRIS,BECKA Pickering) Physical Exam Physical Exam General Appearance: well developed/nourished, alert, awake, mild distress Head: atraumatic, normal appearance Eyes: Bilateral: PERRL, EOMI. Ears, Nose, Throat, Mouth: hearing grossly normal, moist mucous membrane Neck: normal inspection, supple, full range of motion Respiratory: normal breath sounds, chest non-tender, no respiratory distress, lungs clear Cardiovascular: regular rate/rhythm, normal peripheral pulses Gastrointestinal: normal bowel sounds, soft, non-tender, no organomegaly Back: normal inspection Extremities: normal range of motion Neurologic/Psych: no motor/sensory deficits, awake, alert, oriented x 3, normal gait, normal mood/affect Skin: intact, normal color, warm/dry Core Measures ACS in differential dx? Yes ASA ordered for poss ACS? No-ACS ruled out Severe Sepsis Present: No Septic Shock Present: No (MARCOS HARRIS,BECKA Pickering) Progress Differential Diagnosis: appendicitis, biliary colic, colon cancer, cholecystitis , diverticulitis, gastritis, hepatitis, ischemic bowel, inflamm bowel dis, orchitis, pancreatitis, PUD/GERD Plan of Care: Orders Procedure Date/time Status URINALYSIS 11/13 625 Complete TROPONIN LEVEL 11/13 625 Complete LIPASE 11/13 625 Complete COMPREHENSIVE METABOLIC PANEL 11/13 625 Complete CBC WITHOUT DIFFERENTIAL 11/13 625 Complete AMYLASE 11/13 625 Complete EKG 11/13 625 Active Laboratory Tests 11/13/16 0645: Urine Color YEL, Urine Clarity CLEAR, Urine pH 6.0, Ur Specific [place] 1.020, Urine Protein NEG, Urine Ketones TRACE H, Urine Nitrite NEG, Urine Bilirubin NEG, Urine Urobilinogen 0.2, Ur Leukocyte Esterase NEG, Ur Microscopic EXAM NOT REQUIRED, Urine Hemoglobin NEG, Urine Glucose NEG 11/13/16 0643: Anion Gap 12, Estimated GFR 22 L, BUN/Creatinine Ratio 7.3, Glucose 186 H, Calcium 10.3 H, Total Bilirubin 0.9, AST 26, ALT 33, Alkaline Phosphatase 72, Troponin I < 0.01, Total Protein 6.8, Albumin 4.0, Globulin 2.8, Albumin/ Globulin Ratio 1.4, Amylase 32, Lipase 26, CBC w Diff NO MAN DIFF REQ, RBC 4.42 L, MCV 94.0, MCH 31.3 H, RDW 12.9, MPV 9.1, Gran % 74.6, Lymphocytes % 15.9 L, Monocytes % 7.4, Eosinophils % 1.1, Basophils % 1.0, Absolute Granulocytes 5.7, Absolute Lymphocytes 1.2, Absolute Monocytes 0.6, Absolute Eosinophils 0.1, Absolute Basophils 0.1, PUBS MCHC 33.3 Initial ED EKG: NSR, nonspecific ST T wave chg, LAFB Prior EKG: unchanged Hand-Off Endorsed To: ROSANA CHILD MD Endorsed Time: 0700 Pending: labs (MARCOS HARRIS,BECKA Pickering) Departure Departure Disposition: HOME OR SELF CARE Condition: Stable Referrals: JAIMIE HARRIS,BECKA Lemus (PCP/Family) Additional Instructions: FOLLOW UP WITH YOUR DOCTOR Departure Forms: Customer Survey General Discharge Information (BECKA RODRÍGUEZ MD) Departure Clinical Impression Primary Impression: Upper abdominal pain, unspecified Secondary Impressions: Chest pain, Chronic renal disease, Groin pain (ROSANA CHILD MD)
[2016-11-13 06:51] LABS: ABSOLUTE BASOPHIL COUNT 0.1 /CUMM (0.0-0.2); ABSOLUTE EOSINOPHIL COUNT 0.1 /CUMM (0.0-0.7); ABSOLUTE GRANULOCYTE CT 5.7 /CUMM (1.4-6.5); ABSOLUTE LYMPH COUNT 1.2 /CUMM (1.2-3.4); ABSOLUTE MONOCYTE COUNT 0.6 /CUMM (0.10-0.60); EOSINOPHIL % 1.1 % (0-5); GRANULOCYTE % 74.6 % (42.2-75.2); HEMATOCRIT 41.5 % (42-52); MEAN CORPUSCULAR HGB 31.3 PG (27.0-31.0); MEAN CORPUSCULAR HGB CONC 33.3 G/DL (33.0-37.0); MEAN PLATELET VOLUME 9.1 FL (7.4-10.4); PLATELET COUNT 192 /CUMM (130-400); RBC DISTRIBUTION WIDTH 12.9 % (11.5-14.5); RED BLOOD CELL CT 4.42 /CUMM (4.70-6.10); WHITE BLOOD CELL COUNT 7.6 /CUMM (4.8-10.8)
[2016-11-13 07:36] VITALS: BP 138/78
== END 2016-11-13 07:51 ==
LOC: ERH 06:11
PROVIDERS: Emergency Medicine
DX: N18.9 Chronic kidney disease, unspecified (principal); R10.10 Upper abdominal pain, unspecified; R07.9 Chest pain, unspecified
CPT/HCPCS: 81003; 93005; 93010; J3101

== ENCOUNTER 2016-11-13 10:14 | Emergency (ER) | payer OTHER | END 2016-11-13 10:35 | disposition admitted as inpatient to this hospital (09) | LOC: ERH 10:14 | DX: Z53.21 Procedure and treatment not carried out due to patient leaving prior to being seen by health care provider (principal) ==

== ENCOUNTER 2016-11-13 12:41 | Emergency (ER) | payer OTHER ==
[~2016-11-13] VITALS: Ht 170.2 cm; Wt 70.3 kg
[2016-11-13 12:51] VITALS: BP 149/82
--- NOTE | 2016-11-13 14:08 | ED GENERAL ADULT ---
History of Present Illness General Chief Complaint: General Adult Stated Complaint: "NEEDS FLUID" Source: patient, old records, friend Exam Limitations: no limitations Vital Signs & Intake/Output Vital Signs & Intake/Output Vital Signs Date Time Temp Pulse Resp B/P Pulse O2 O2 Flow FiO2 Ox Delivery Rate 11/13 1251 97.6 83 16 149/82 97 Room Air Allergies Coded Allergies: NO KNOWN ALLERGIES (11/11/16) Reconcile Medications Amlodipine Besylate 5 MG TABLET 1 TAB PO DAILY HEART (Reported) Aspirin (Ecotrin*) 81 MG TABLET.DR 1 TAB PO DAILY HEART/BLOOD (Reported) Calcitriol 0.25 MCG CAPSULE 1 CAP PO DAILY BONES (Reported) Cholecalciferol (Vitamin D3) (Vitamin D3) 1,000 UNIT CAPSULE 1 CAP PO DAILY SUPPLEMENT (Reported) Diclofenac Sodium (Voltaren) 100 GM GEL..GRAM. 1 GM TOP 4 TIMES/DAY ARTHRITIS (Reported) apply to affected area(s) Gabapentin 300 MG CAPSULE 1 CAP PO TID NERVE PAIN/MENTAL HEALTH (Reported) Humulin 70-30 (Humulin 70-30 Vial) 100 UNIT/1 ML VIAL 10 UNITS SC QAM AC Diabetes (Reported) Humulin 70-30 (Humulin 70-30 Vial) 100 UNIT/1 ML VIAL 8 UNIT SC QPM AC DIABETES (Reported) Lipase/Protease/Amylase (Kajal Roldan 36,000 Units Capsule) 1 EACH CAPSULE. 1 CAP PO TID PANCREASE (Reported) Lipase/Protease/Amylase (Lisbeth Roldan 40,000 Units Capsule) 40K-136K CAPSULE. 1 CAP PO TID PANCREASE (Reported) Magnesium Oxide (Magnesium) 400 MG CAPSULE 1 CAP PO DAILY MAG Nebivolol HCl (Bystolic) 20 MG TABLET 1 TAB PO DAILY BP (Reported) Omeprazole Magnesium (Prilosec Otc) 20 MG TABLET. 1 TAB PO BID GASTRITIS Ondansetron (Zofran Odt) 4 MG TAB.RAPDIS 1 TAB SL TID PRN nausea Tramadol HCl 50 MG TABLET 1-2 TAB PO Q6 PRN pain Zolpidem Tartrate (Ambien) 5 MG TABLET 1 TAB PO QPMP insomnia May repeat in 45 minutes if no effect on sleep Core Measure Meds Pre-Hospital aspirin Triage Note: PT STATES HE NEEDS FLUIDS. PT WAS SEEN IN ED EARLIER AND RECEIVED 1 LITER OF FLUID. FRIEND STATES HE BROUGHT PT BACK BECAUSE HE HAS NOT BEEN EATING CORRECTLY AND HE HAS NO FAMILY SUPPORT. PT HAS PILL BOTTLES ALL AROUND HOME. Triage Nurses Notes Reviewed? yes Onset: Just prior to arrival Duration: hour(s):, constant, continues in ED Timing: recent history Severity: severe No Modifying Factors: none HPI: Patient seen earlier today for complaints of dehydration and groin pain requesting admission to the hospital. Since discharge he went to neighbors home reported to them treatment was refused. 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 He does not have immediate family nor many friends for support. He was discharged then returned because he felt he needed fluids. Past History Travel History Traveled to [facility] past 21 day No Medical History Any Pertinent Medical History? 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 No Review of Systems Review of Systems Constitutional: Reports: see HPI, malaise. EENTM: Reports: no symptoms. Respiratory: Reports: no symptoms. Cardiovascular: Reports: no symptoms. GI: Reports: see HPI, nausea. Genitourinary: Reports: no symptoms. Musculoskeletal: Reports: no symptoms. Skin: Reports: no symptoms. Neurological/Psychological: Reports: no symptoms. Hematologic/Endocrine: Reports: no symptoms. Immunologic/Allergic: Reports: no symptoms. All Other Systems: Reviewed and Negative Physical Exam Physical Exam General Appearance: well developed/nourished, alert, awake, anxious, mild distress Head: atraumatic, normal appearance Eyes: Bilateral: normal appearance, PERRL, EOMI. Ears, Nose, Throat: normal pharynx, normal ENT inspection Neck: normal inspection, supple, full range of motion, no midline tenderness Respiratory: normal breath sounds, chest non-tender, no respiratory distress, quiet respiration, lungs clear Cardiovascular: regular rate/rhythm, normal peripheral pulses, norml femoral pulses equa Peripheral Pulses: 4+ carotid (R), 4+ carotid (L) Gastrointestinal: normal bowel sounds, soft, non-tender, no organomegaly Back: normal inspection, normal range of motion Extremities: normal inspection, normal capillary refill, normal range of motion, no edema Neurologic/Psych: no motor/sensory deficits, awake, alert, oriented x 3, normal gait, porcelain enamel repairer II-XII nml as tested, depressed affect Reflexes: 2+: bicep (R), bicep (L). Skin: intact, normal color, warm/dry Lymphatic: no anterior cervical kelley Core Measures ACS in differential dx? No CVA/TIA Diagnosis: No Severe Sepsis Present: No Septic Shock Present: No Progress Differential Diagnoses I considered the following diagnoses in my evaluation of the patient: Somatizations loneliness poor social support chronic disease Plan of Care: Orders Procedure Date/time Status Consistent Carbohydrate 1 11/13 D Active Initial ED EKG: none Departure Departure Time of Disposition: 1405 Disposition: HOME OR SELF CARE Condition: Stable Clinical Impression Primary Impression: Loneliness Secondary Impressions: Anxiety and depression Referrals: JAIMIE HARRIS,BECKA Lemus (PCP/Family) Additional Instructions: Follow up with the recommendations of our case investigator. Departure Forms: Customer Survey General Discharge Information Critical Care Note Critical Care Note Critical Care Time: non-applicable
--- NOTE | 2016-11-13 15:07 | NUR ---
3/5 CASE MGMT- SPOKE WITH SANDIE AT [facility] FOR REFERRAL AND FAXED W10 TO [phone] WITH CONFIRMATION.
== END 2016-11-13 14:15 ==
LOC: ERH 12:41
DX: F41.9 Anxiety disorder, unspecified (principal); F32.9 Major depressive disorder, single episode, unspecified

== ENCOUNTER 2016-11-16 13:32 | Emergency (ER) | payer OTHER ==
[~2016-11-16] VITALS: Ht 170.2 cm; Wt 70.3 kg
[2016-11-16] MEDS ORDERED: CAPTOPRIL PO (14:41)
--- NOTE | 2016-11-16 14:49 | ED GI/GU/ABDOMINAL COMPLAINT ---
History of Present Illness General Chief Complaint: Nausea, Vomiting, Diarrhea Stated Complaint: VOMITING Source: patient Exam Limitations: no limitations Vital Signs & Intake/Output Vital Signs & Intake/Output Vital Signs Date Time Temp Pulse Resp B/P Pulse O2 O2 Flow FiO2 Ox Delivery Rate 11/16 1635 98.0 88 18 140/72 98 Room Air 11/16 1339 98.1 89 18 145/91 99 Room Air Allergies Coded Allergies: NO KNOWN ALLERGIES (11/11/16) Triage Note: 61 Y/O MALE C/O VOMITING SINCE 0800 THIS AM; STATES "THE [facility] TOLD ME TO COME IN". C/O ABDOMINAL PAIN AND "I CANT KEEP ANYTHING DOWN". AFEBRILE. Triage Nurses Notes Reviewed? yes Onset: Abrupt Duration: chronic Location: generalized abdomen No Modifying Factors: none HPI: 61-year-old male comes into emergency room with vomiting. Patient has been seen here many times for the same symptoms in the past. Some general abdominal pain. Patient reports it difficult to keep liquids down at home. Denies any fever or chills. No changes in bowel movement. Patient has been following up with his GI doctor he reports with no relief of symptoms. Patient on multiple oral medications. (SINDHU RUBIO) Reconcile Medications Amlodipine Besylate 5 MG TABLET 1 TAB PO DAILY HEART (Reported) Aspirin (Ecotrin*) 81 MG TABLET.DR 1 TAB PO DAILY HEART/BLOOD (Reported) Calcitriol 0.25 MCG CAPSULE 1 CAP PO DAILY BONES (Reported) Captopril 50 MG TABLET 1 TAB PO BID HEART (Reported) Cholecalciferol (Vitamin D3) (Vitamin D3) 1,000 UNIT CAPSULE 1 CAP PO DAILY SUPPLEMENT (Reported) Diazepam (Valium) 2 MG TABLET 1 TAB PO TID PRN ANXIETY Diclofenac Sodium (Voltaren) 100 GM GEL..GRAM. 1 GM TOP 4 TIMES/DAY ARTHRITIS (Reported) apply to affected area(s) Gabapentin 300 MG CAPSULE 1 CAP PO TID NERVE PAIN/MENTAL HEALTH (Reported) Humulin 70-30 (Humulin 70-30 Vial) 100 UNIT/1 ML VIAL 10 UNITS SC QAM AC Diabetes (Reported) Humulin 70-30 (Humulin 70-30 Vial) 100 UNIT/1 ML VIAL 8 UNIT SC QPM AC DIABETES (Reported) Lipase/Protease/Amylase (Lisbeth Roldan 40,000 Units Capsule) 40K-136K CAPSULE.DR 1 CAP PO TID PANCREASE (Reported) Magnesium Oxide (Magnesium) 400 MG CAPSULE 1 CAP PO DAILY MAG Nebivolol HCl (Bystolic) 20 MG TABLET 1 TAB PO DAILY BP (Reported) Omeprazole Magnesium (Prilosec Otc) 20 MG TABLET.DR 1 TAB PO BID GASTRITIS Ondansetron (Zofran Odt) 4 MG TAB.RAPDIS 1 TAB SL TID PRN nausea Promethazine HCl 25 MG TABLET 1 TAB PO Q6P PRN NAUSEA Tramadol HCl 50 MG TABLET 1-2 TAB PO Q6 PRN pain Zolpidem Tartrate (Ambien) 5 MG TABLET 1 TAB PO QPMP insomnia May repeat in 45 minutes if no effect on sleep (MERLY HARRIS,LUIS ALFREDO) Past History Travel History Traveled to [place] past 21 day No Medical History Any Pertinent Medical History? 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 No (SINDHU RUBIO) Review of Systems Review of Systems Constitutional: Reports: no symptoms. EENTM: Reports: no symptoms. Respiratory: Reports: no symptoms. Cardiovascular: Reports: no symptoms. GI: Reports: no symptoms. Genitourinary: Reports: no symptoms. Musculoskeletal: Reports: no symptoms. Skin: Reports: see HPI. Neurological/Psychological: Reports: no symptoms. Hematologic/Endocrine: Reports: no symptoms. Immunologic/Allergic: Reports: no symptoms. All Other Systems: Reviewed and Negative (SINDHU RUBIO) Physical Exam Physical Exam General Appearance: well developed/nourished, no apparent distress, alert Head: atraumatic, normal appearance Eyes: Bilateral: normal appearance, EOMI. Ears, Nose, Throat, Mouth: hearing grossly normal, moist mucous membrane Neck: normal inspection, full range of motion Respiratory: normal breath sounds, no respiratory distress Cardiovascular: regular rate/rhythm Gastrointestinal: soft, non-tender Back: normal inspection Extremities: normal range of motion Neurologic/Psych: awake, alert, oriented x 3, normal gait, normal mood/affect Skin: intact, normal color Core Measures ACS in differential dx? No Severe Sepsis Present: No Septic Shock Present: No (SINDHU RUBIO) Progress Differential Diagnosis: appendicitis, biliary colic, bowel obstruction, colon cancer, cholecystitis, diverticulitis, pancreatitis, peptic ulcer, PUD/GERD Plan of Care: Orders Procedure Date/time Status LIPASE 11/16 144 Complete COMPREHENSIVE METABOLIC PANEL 11/16 144 Complete CBC WITHOUT DIFFERENTIAL 11/17 1447 Complete Laboratory Tests 11/16/16 1510: Anion Gap 10, Estimated GFR 27 L, BUN/Creatinine Ratio 8.0, Glucose 217 H, Calcium 9.6, Total Bilirubin 0.4, AST 53, ALT 54, Alkaline Phosphatase 66, Total Protein 6.2 L, Albumin 3.8, Globulin 2.4, Albumin/Globulin Ratio 1.6, Lipase 27 , CBC w Diff NO MAN DIFF REQ, RBC 3.93 L, MCV 93.3, MCH 31.3 H, RDW 13.2, MPV 9.2, Gran % 76.4 H, Lymphocytes % 14.6 L, Monocytes % 7.7, Eosinophils % 0.9, Basophils % 0.4, Absolute Granulocytes 4.5, Absolute Lymphocytes 0.9 L, Absolute Monocytes 0.5, Absolute Eosinophils 0.1, Absolute Basophils 0, PUBS MCHC 33.6 Initial ED EKG: none Comments: 11/16/2016 4:40:23 PM No acute findings. Patient is at his normal baseline. Follow-up with primary care doctor and GI doctor. (SINDHU RUBIO) Departure Departure Disposition: HOME OR SELF CARE Condition: Stable Clinical Impression Primary Impression: Vomiting Secondary Impressions: Abdominal pain Referrals: BECKA ETIENNE MD (PCP/Family) Additional Instructions: Follow-up with your GI doctor. Return to the emergency room immediately if any other concerns worsening symptoms. Please go over all results of today's visit with your primary care doctor. Contact your primary care doctor to let them know you were here in the emergency room. There may be nonspecific findings which may not be related to your visit today here in the emergency room but may require further evaluation and chronic monitoring by your primary care doctor. If you had a laceration today the chance of foreign body always remains. You should follow-up with your primary care doctor for recheck in 3-5 days for a wound check. If you had an x-ray done there is a chance that a fracture could have been missed on initial read and you should follow-up with your primary care doctor for repeat x-rays if symptoms persist. If your blood pressure was elevated here in the emergency room please have rechecked by her primary care doctor within the next 48 hours by your primary care doctor. If you were prescribed a narcotic here in the emergency room or any type of controlled substances you're not allowed to drive while taking this medication or operate any type of heavy machinery. Narcotics can make you feel lightheaded dizziness nausea and can cause constipation. You may need to citrus picker a stool softener. Thank you for choosing [facility] emergency room. Please return to the emergency room immediately if you have any other concerns worsening of symptoms. Departure Forms: Customer Survey General Discharge Information (SINDHU RUBIO) PA/WORKERS COMPENSATION PARALEGAL Co-Sign Statement Statement: ED Attending supervision documentation- [] I saw and evaluated the patient. I have also reviewed all the pertinent lab results and diagnostic results. I agree with the findings and the plan of care as documented in the PA's/WORKERS COMPENSATION PARALEGAL's documentation. [X] I have reviewed the ED Record and agree with the PA's/WORKERS COMPENSATION PARALEGAL's documentation. [] Additions or exceptions (if any) to the PAs/WORKERS COMPENSATION PARALEGAL's note and plan are summarized below: [] (MERLY HARRIS,LUIS ALFREDO)
[2016-11-16 15:17] LABS: ABSOLUTE BASOPHIL COUNT 0 /CUMM (0.0-0.2); ABSOLUTE EOSINOPHIL COUNT 0.1 /CUMM (0.0-0.7); ABSOLUTE GRANULOCYTE CT 4.5 /CUMM (1.4-6.5); ABSOLUTE LYMPH COUNT 0.9 /CUMM (1.2-3.4); ABSOLUTE MONOCYTE COUNT 0.5 /CUMM (0.10-0.60); BASOPHIL % 0.4 % (0.0-2.0); EOSINOPHIL % 0.9 % (0-5); GRANULOCYTE % 76.4 % (42.2-75.2); HEMATOCRIT 36.7 % (42-52); MEAN CORPUSCULAR HGB 31.3 PG (27.0-31.0); MEAN CORPUSCULAR HGB CONC 33.6 G/DL (33.0-37.0); MEAN CORPUSCULAR VOLUME 93.3 FL (80.0-94.0); MEAN PLATELET VOLUME 9.2 FL (7.4-10.4); PLATELET COUNT 190 /CUMM (130-400); RBC DISTRIBUTION WIDTH 13.2 % (11.5-14.5); RED BLOOD CELL CT 3.93 /CUMM (4.70-6.10); WHITE BLOOD CELL COUNT 5.9 /CUMM (4.8-10.8)
[2016-11-16 16:35] VITALS: BP 140/72
[2016-11-17] MEDS ORDERED: PROMETHAZINE HC25 M3 PO (15:09)
[2016-11-17] MEDS ORDERED: VALIUM2 M1 PO (15:09)
== END 2016-11-16 16:34 ==
LOC: ERH 13:32
PROVIDERS: Physician Assistant Medical
DX: R11.2 Nausea with vomiting, unspecified (principal); R10.84 Generalized abdominal pain
CPT/HCPCS: 96361; 96374; J2765

== ENCOUNTER 2016-11-17 13:40 | Emergency (ER) | payer OTHER ==
[~2016-11-17] VITALS: Ht 170.2 cm; Wt 68.0 kg
[~2016-11-17 13:40] MED LIST changes: +CAPTOPRIL PO
[2016-11-17 13:44] VITALS: BP 159/102
[2016-11-17] MEDS ORDERED: VALIUM2 M1 PO (15:09)
[2016-11-17] MEDS ORDERED: PROMETHAZINE HC25 M3 PO (15:09)
--- NOTE | 2016-11-17 15:10 | ED GI/GU/ABDOMINAL COMPLAINT ---
History of Present Illness General Chief Complaint: Nausea, Vomiting, Diarrhea Stated Complaint: N/V/D Source: patient, old records Exam Limitations: no limitations Vital Signs & Intake/Output Vital Signs & Intake/Output Vital Signs Date Time Temp Pulse Resp B/P Pulse O2 O2 Flow FiO2 Ox Delivery Rate 11/17 1344 97.8 85 16 159/102 97 Room Air Allergies Coded Allergies: NO KNOWN ALLERGIES (11/11/16) Reconcile Medications Amlodipine Besylate 5 MG TABLET 1 TAB PO DAILY HEART (Reported) Aspirin (Ecotrin*) 81 MG TABLET.DR 1 TAB PO DAILY HEART/BLOOD (Reported) Calcitriol 0.25 MCG CAPSULE 1 CAP PO DAILY BONES (Reported) Captopril 50 MG TABLET 1 TAB PO BID HEART (Reported) Cholecalciferol (Vitamin D3) (Vitamin D3) 1,000 UNIT CAPSULE 1 CAP PO DAILY SUPPLEMENT (Reported) Diazepam (Valium) 2 MG TABLET 1 TAB PO TID PRN ANXIETY Diclofenac Sodium (Voltaren) 100 GM GEL..GRAM. 1 GM TOP 4 TIMES/DAY ARTHRITIS (Reported) apply to affected area(s) Gabapentin 300 MG CAPSULE 1 CAP PO TID NERVE PAIN/MENTAL HEALTH (Reported) Humulin 70-30 (Humulin 70-30 Vial) 100 UNIT/1 ML VIAL 10 UNITS SC QAM AC Diabetes (Reported) Humulin 70-30 (Humulin 70-30 Vial) 100 UNIT/1 ML VIAL 8 UNIT SC QPM AC DIABETES (Reported) Lipase/Protease/Amylase (Zenpep Dr 40,000 Units Capsule) 40K-136K CAPSULE. 1 CAP PO TID PANCREASE (Reported) Magnesium Oxide (Magnesium) 400 MG CAPSULE 1 CAP PO DAILY MAG Nebivolol HCl (Bystolic) 20 MG TABLET 1 TAB PO DAILY BP (Reported) Omeprazole Magnesium (Prilosec Otc) 20 MG TABLET. 1 TAB PO BID GASTRITIS Ondansetron (Zofran Odt) 4 MG TAB.RAPDIS 1 TAB SL TID PRN nausea Promethazine HCl 25 MG TABLET 1 TAB PO Q6P PRN NAUSEA Tramadol HCl 50 MG TABLET 1-2 TAB PO Q6 PRN pain Zolpidem Tartrate (Ambien) 5 MG TABLET 1 TAB PO QPMP insomnia May repeat in 45 minutes if no effect on sleep Triage Note: PT SENT IN BY PCP FOR N/V STATES HE CAN'T KEEP ANYTHING DOWN. Triage Nurses Notes Reviewed? yes HPI: 61-year-old male well-known to this department presents with nausea vomiting anxiety and loneliness symptoms. He has been seen here 10 times the last 30 days for same. He was seen here yesterday and I reviewed his previous records, he had IV fluid yesterday due to nausea and vomiting. His labs were at their baseline. He states his nausea and vomiting has continued today, vomited twice. He is able to drink fluids. He is having normal bowel movements. He states he is jittery, as hands are shaking due to anxiety. He denies any fever or flulike illness no abdominal pain or chest pain. He has prescribed antinausea medication but has not been taking it. He has been seen by his primary care doctor GI in this emergency department multiple times. Symptoms are mild (MO CUNHA) Past History Travel History Traveled to [place] past 21 day No Medical History Any Pertinent Medical History? 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 No (MO CUNHA) Review of Systems Review of Systems Constitutional: Reports: see HPI. EENTM: Reports: no symptoms. Respiratory: Reports: no symptoms. Cardiovascular: Reports: no symptoms. GI: Reports: see HPI. Genitourinary: Reports: no symptoms. Musculoskeletal: Reports: no symptoms. Skin: Reports: no symptoms. Neurological/Psychological: Reports: anxiety. Hematologic/Endocrine: Reports: no symptoms. Immunologic/Allergic: Reports: no symptoms. All Other Systems: Reviewed and Negative (MO CUNHA) Physical Exam Physical Exam General Appearance: well developed/nourished, no apparent distress, alert, awake Head: atraumatic, normal appearance Eyes: Bilateral: normal appearance, PERRL. Ears, Nose, Throat, Mouth: hearing grossly normal Neck: normal inspection, supple, full range of motion Respiratory: normal breath sounds, chest non-tender, no respiratory distress Cardiovascular: regular rate/rhythm Gastrointestinal: normal bowel sounds, soft, non-tender, no organomegaly Back: normal inspection Extremities: normal range of motion Neurologic/Psych: no motor/sensory deficits, awake, alert, oriented x 3 Skin: intact, normal color, warm/dry Core Measures ACS in differential dx? No Severe Sepsis Present: No Septic Shock Present: No (MO CUNHA) Progress Differential Diagnosis: AAA, AMI, appendicitis, biliary colic, bowel obstruction , colon cancer, cholecystitis, diverticulitis, epididymitis, esophageal varices, gastritis, hepatitis, hernia, hemorrhoids, ischemic bowel, inflamm bowel dis, Urszula-Byron tear, orchitis, pancreatitis, prostatitis, peptic ulcer, PUD/GERD, perforated viscous, pyelonephritis, SBO, STD, testicular torsion, ureterolithiasis, urinary retention, urethritis, UTI/pyelo Plan of Care: Current Medications Sig/Martir Start time Last Medication Dose Stop Time Status Admin Promethazine HCl 25 MG ONCE ONE 11/17 1514 AC (Phenergan 25MG 11/18 1515 Tablet) Initial ED EKG: none Comments: Patient is not actively vomiting, he has no abdominal tenderness, his vital signs are stable, he was seen here yesterday for same. He is requesting an IV and repeat blood test. I discussed with him that I did not feel was appropriate to continue to do venipuncture on him and IV fluids, he is tolerating fluids by mouth. He has not other symptoms that lead me to believe that he is medically ill. Patient is lonely and has anxiety problems and admits to this. We will place him on antianxiety medication and nausea medication, He is asked follow- up with his primary care doctor. Patient was ordered 25 mg of Phenergan here by mouth but he eloped prior to receiving the medication. (MO CUNHA) Departure Departure Disposition: HOME OR SELF CARE Condition: Stable Clinical Impression Primary Impression: Anxiety Secondary Impressions: Loneliness Nausea & vomiting Qualifiers: Vomiting type: unspecified Vomiting Intractability: non-intractable Qualified Code: R11.2 - Nausea with vomiting, unspecified Referrals: JAIMIE HARRIS,BECKA Lemus (PCP/Family) Additional Instructions: Follow-up with your doctor for further evaluation and treatment. You may need to be on long-term antianxiety medication. Drink plenty of water and take nausea medication as needed. Departure Forms: Customer Survey General Discharge Information Prescriptions: Current Visit Scripts Diazepam (Valium) 1 TAB PO TID PRN ANXIETY #15 TAB Promethazine HCl 1 TAB PO Q6P PRN NAUSEA #20 TAB (MO CUNHA) PA/ADMINISTRATIVE COURT JUSTICE Co-Sign Statement Statement: ED Attending supervision documentation- [] I saw and evaluated the patient. I have also reviewed all the pertinent lab results and diagnostic results. I agree with the findings and the plan of care as documented in the PA's/ADMINISTRATIVE COURT JUSTICE's documentation. []X I have reviewed the ED Record and agree with the PA's/ADMINISTRATIVE COURT JUSTICE's documentation. [] Additions or exceptions (if any) to the PAs/ADMINISTRATIVE COURT JUSTICE's note and plan are summarized below: [] (MARCOS HARRIS,BECKA Pickering)
== END 2016-11-17 15:15 ==
LOC: ERH 13:40
DX: F41.9 Anxiety disorder, unspecified (principal)
CPT/HCPCS: J2405

== ENCOUNTER 2016-12-16 13:46 | Emergency (ER) | payer OTHER ==
[~2016-12-16] VITALS: Ht 170.2 cm; Wt 70.3 kg
[~2016-12-16 13:46] MED LIST changes: +PROMETHAZINE HC25 M3 PO; +VALIUM2 M1 PO
--- NOTE | 2016-12-16 14:04 | ED GENERAL ADULT ---
History of Present Illness General Chief Complaint: General Adult Stated Complaint: ARTHRITIS PAIN Source: patient Exam Limitations: no limitations Vital Signs & Intake/Output Vital Signs & Intake/Output Vital Signs Date Time Temp Pulse Resp B/P Pulse O2 O2 Flow FiO2 Ox Delivery Rate 12/16 1500 80 172/90 12/16 1355 98.3 82 18 180/100 98 Room Air ED Intake and Output 12/17 0000 12/16 1200 Intake Total Output Total Balance Patient 155 lb Weight Allergies Coded Allergies: NO KNOWN ALLERGIES (11/11/16) Reconcile Medications Amlodipine Besylate 5 MG TABLET 1 TAB PO DAILY HEART (Reported) Aspirin (Ecotrin*) 81 MG TABLET.DR 1 TAB PO DAILY HEART/BLOOD (Reported) Calcitriol 0.25 MCG CAPSULE 1 CAP PO DAILY BONES (Reported) Captopril 50 MG TABLET 1 TAB PO BID HEART (Reported) Cholecalciferol (Vitamin D3) (Vitamin D3) 1,000 UNIT CAPSULE 1 CAP PO DAILY SUPPLEMENT (Reported) Diazepam (Valium) 2 MG TABLET 1 TAB PO TID PRN ANXIETY Diclofenac Sodium (Voltaren) 100 GM GEL..GRAM. 1 GM TOP 4 TIMES/DAY ARTHRITIS (Reported) apply to affected area(s) Gabapentin 300 MG CAPSULE 1 CAP PO TID NERVE PAIN/MENTAL HEALTH (Reported) Humulin 70-30 (Humulin 70-30 Vial) 100 UNIT/1 ML VIAL 10 UNITS SC QAM AC Diabetes (Reported) Humulin 70-30 (Humulin 70-30 Vial) 100 UNIT/1 ML VIAL 8 UNIT SC QPM AC DIABETES (Reported) Lipase/Protease/Amylase (Zenmariposap 40,000 Units Capsule) 40K-136K CAPSULE. 1 CAP PO TID PANCREASE (Reported) Magnesium Oxide (Magnesium) 400 MG CAPSULE 1 CAP PO DAILY MAG Nebivolol HCl (Bystolic) 20 MG TABLET 1 TAB PO DAILY BP (Reported) Omeprazole Magnesium (Prilosec Otc) 20 MG TABLET.DR 1 TAB PO BID GASTRITIS Ondansetron (Zofran Odt) 4 MG TAB.RAPDIS 1 TAB SL TID PRN nausea Promethazine HCl 25 MG TABLET 1 TAB PO Q6P PRN NAUSEA Tramadol HCl 50 MG TABLET 1-2 TAB PO Q6 PRN pain Zolpidem Tartrate (Ambien) 5 MG TABLET 1 TAB PO QPMP insomnia May repeat in 45 minutes if no effect on sleep Triage Note: COMPLAINS OF ARTHRITIS PAIN IN HIS NECK AND BACK SINCE THIS AM Triage Nurses Notes Reviewed? yes HPI: This patient is a 61-year-old male who presented to the emergency department today for evaluation of, "I have arthritis pain." The patient reported that he woke up this morning with pain in his neck and upper back which he attributes to arthritis. He reported that he has had imaging in the past which confirmed this. He reported he tried taking 50 mg of tramadol this morning without any relief of his symptoms. He is requesting a shot of Toradol. The patient denied any low back pain. He denied any headaches or visual changes. No difficulty breathing. No abdominal pain, nausea, or vomiting. (ROCAEL ALAN PA-C) Past History Travel History Traveled to [facility] past 21 day No Medical History Any Pertinent Medical History? 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 No (ROCAEL ALAN PA-C) Review of Systems Review of Systems Constitutional: Reports: no symptoms. EENTM: Reports: no symptoms. Respiratory: Reports: no symptoms. Cardiovascular: Reports: no symptoms. GI: Reports: no symptoms. Musculoskeletal: Reports: see HPI. Skin: Reports: no symptoms. Neurological/Psychological: Reports: no symptoms. All Other Systems: Reviewed and Negative (ROCAEL ALAN PA-C) Physical Exam Physical Exam General Appearance: well developed/nourished, no apparent distress, alert, awake Comments: Well-developed well-nourished person in no acute distress HEENT: Normal EENT exam, head normocephalic, moist mucous membranes PERRLA bilaterally Neck: Supple, no lymphadenopathy. No midline tenderness. Cervical paraspinal musculature tenderness Back: Normal gait. Normal inspection. No midline tenderness Cardiovascular: Regular rate and rhythm with no murmurs, rubs, or gallops Respiratory: No respiratory distress. Speaking in full sentences Extremity: Normal and equal pulses. 5 out of 5 utility agent strength bilaterally Neuro: Alert oriented x3, cranial nerves II through XII grossly intact. Skin: No appreciable rash on exposed skin, skin is warm and dry. Psych: Mood and affect is normal Core Measures ACS in differential dx? No CVA/TIA Diagnosis: No Severe Sepsis Present: No Septic Shock Present: No (ROCAEL ALAN PA-C) Progress Differential Diagnoses I considered the following diagnoses in my evaluation of the patient: [Arthritis , musculoskeletal pain, muscle strain, disc herniation] Plan of Care: Current Medications Sig/Martir Start time Last Medication Dose Stop Time Status Admin Ketorolac 60 MG ONCE ONE 12/16 1445 UNVr Tromethamine 12/16 1446 (Toradol) Initial ED EKG: none (ROCAEL ALAN PA-C) Departure Departure Disposition: HOME OR SELF CARE Condition: Stable Clinical Impression Primary Impression: Arthritis Referrals: JAIMIE HARRIS,BECKA Lemus (PCP/Family) Additional Instructions: Please follow-up with your primary care physician and orthopedic physician. Avoid any strenuous activity or heavy lifting. Return for any worsening symptoms or concerns. Departure Forms: Customer Survey General Discharge Information (ROCAEL ALAN PA-C) PA/EXHIBIT SPECIALIST Co-Sign Statement Statement: ED Attending supervision documentation- [] I saw and evaluated the patient. I have also reviewed all the pertinent lab results and diagnostic results. I agree with the findings and the plan of care as documented in the PA's/EXHIBIT SPECIALIST's documentation. [x] I have reviewed the ED Record and agree with the PA's/EXHIBIT SPECIALIST's documentation. [] Additions or exceptions (if any) to the PAs/EXHIBIT SPECIALIST's note and plan are summarized below: [] (MERLY HARRIS,LUIS ALFREDO) Critical Care Note Critical Care Note Critical Care Time: non-applicable (ROCAEL ALAN PA-C)
[2016-12-16 15:00] VITALS: BP 172/90
== END 2016-12-16 15:01 ==
LOC: ERH 13:46
DX: M47.812 Spondylosis without myelopathy or radiculopathy, cervical region (principal)
CPT/HCPCS: 96372; J1885

== ENCOUNTER 2016-12-25 15:05 | Emergency (ER) | payer OTHER ==
[2016-12-25 15:09] VITALS: BP 156/92
--- NOTE | 2016-12-25 15:25 | ED GENERAL ADULT ---
History of Present Illness General Chief Complaint: General Adult Stated Complaint: NEEDS PAIN SHOT Source: patient, old records Exam Limitations: no limitations Vital Signs & Intake/Output Vital Signs & Intake/Output Vital Signs Date Time Temp Pulse Resp B/P Pulse O2 O2 Flow FiO2 Ox Delivery Rate 12/25 1509 97.6 84 22 156/92 97 Allergies Coded Allergies: NO KNOWN ALLERGIES (11/11/16) Reconcile Medications Amlodipine Besylate 5 MG TABLET 1 TAB PO DAILY HEART (Reported) Aspirin (Ecotrin*) 81 MG TABLET.DR 1 TAB PO DAILY HEART/BLOOD (Reported) Calcitriol 0.25 MCG CAPSULE 1 CAP PO DAILY BONES (Reported) Captopril 50 MG TABLET 1 TAB PO BID HEART (Reported) Cholecalciferol (Vitamin D3) (Vitamin D3) 1,000 UNIT CAPSULE 1 CAP PO DAILY SUPPLEMENT (Reported) Diazepam (Valium) 2 MG TABLET 1 TAB PO TID PRN ANXIETY Diclofenac Sodium (Voltaren) 100 GM GEL..GRAM. 1 GM TOP 4 TIMES/DAY ARTHRITIS (Reported) apply to affected area(s) Gabapentin 300 MG CAPSULE 1 CAP PO TID NERVE PAIN/MENTAL HEALTH (Reported) Humulin 70-30 (Humulin 70-30 Vial) 100 UNIT/1 ML VIAL 10 UNITS SC QAM AC Diabetes (Reported) Humulin 70-30 (Humulin 70-30 Vial) 100 UNIT/1 ML VIAL 8 UNIT SC QPM AC DIABETES (Reported) Lipase/Protease/Amylase (Zenpep Dr 40,000 Units Capsule) 40K-136K CAPSULE. 1 CAP PO TID PANCREASE (Reported) Magnesium Oxide (Magnesium) 400 MG CAPSULE 1 CAP PO DAILY MAG Nebivolol HCl (Bystolic) 20 MG TABLET 1 TAB PO DAILY BP (Reported) Omeprazole Magnesium (Prilosec Otc) 20 MG TABLET.DR 1 TAB PO BID GASTRITIS Ondansetron (Zofran Odt) 4 MG TAB.RAPDIS 1 TAB SL TID PRN nausea Promethazine HCl 25 MG TABLET 1 TAB PO Q6P PRN NAUSEA Tramadol HCl 50 MG TABLET 1-2 TAB PO Q6 PRN pain Zolpidem Tartrate (Ambien) 5 MG TABLET 1 TAB PO QPMP insomnia May repeat in 45 minutes if no effect on sleep Triage Note: PER PT HERE FOR A SHOT OF MORPHINE OR TORADOL Triage Nurses Notes Reviewed? yes HPI: Patient presents requesting a shot of Toradol to help with his arthritis pain. Patient ran out of pills at home. Patient states that he had a shot in his right knee. Enrrique Snyder MD 2 weeks ago and is due to have another one in his left knee on this Monday. Past History Travel History Traveled to [place] past 21 day No Medical History Any Pertinent Medical History? 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 No Review of Systems Review of Systems Constitutional: Reports: no symptoms. Respiratory: Reports: no symptoms. Cardiovascular: Reports: no symptoms. GI: Reports: no symptoms. Musculoskeletal: Reports: see HPI, joint pain. Neurological/Psychological: Reports: no symptoms. Immunologic/Allergic: Reports: no symptoms. Physical Exam Physical Exam General Appearance: well developed/nourished, alert, awake, anxious, mild distress Head: atraumatic Eyes: Bilateral: PERRL, EOMI. Neck: normal inspection, supple, full range of motion Respiratory: normal breath sounds, chest non-tender, no respiratory distress, lungs clear Cardiovascular: regular rate/rhythm, normal peripheral pulses Extremities: normal inspection, normal capillary refill, normal range of motion, no edema Neurologic/Psych: no motor/sensory deficits, awake, alert, oriented x 3, normal gait, normal mood/affect Skin: intact, normal color, warm/dry Core Measures ACS in differential dx? No CVA/TIA Diagnosis: No Severe Sepsis Present: No Septic Shock Present: No Progress Differential Diagnoses I considered the following diagnoses in my evaluation of the patient: [ARTHRITIS ] Plan of Care: Current Medications Sig/Martir Start time Last Medication Dose Stop Time Status Admin Ketorolac 60 MG ONCE ONE 12/25 1530 UNVr Tromethamine 12/25 1531 (Toradol) Initial ED EKG: none Departure Departure Disposition: HOME OR SELF CARE Condition: Stable Clinical Impression Primary Impression: Arthritis Referrals: JAIMIE HARRIS,BECKA Lemus (PCP/Family) Additional Instructions: RETURN FOR ANY CONCERNS Departure Forms: Customer Survey General Discharge Information Critical Care Note Critical Care Note Critical Care Time: non-applicable
== END 2016-12-25 15:33 ==
LOC: ERH 15:05
DX: M19.90 Unspecified osteoarthritis, unspecified site (principal)
CPT/HCPCS: 96372; J1885

== ENCOUNTER 2017-01-10 18:19 | Emergency (ER) | payer OTHER ==
[2017-01-10 18:42] VITALS: BP 156/78
--- NOTE | 2017-01-10 19:00 | ED GENERAL ADULT ---
History of Present Illness General Chief Complaint: General Adult Stated Complaint: PT NEED HIS SUGAR CHECK Source: patient Exam Limitations: no limitations Vital Signs & Intake/Output Vital Signs & Intake/Output Vital Signs Date Time Temp Pulse Resp B/P B/P Pulse O2 O2 Flow FiO2 Mean Ox Delivery Rate 01/10 1842 98.2 84 17 156/78 98 Room Air Room Air Allergies Coded Allergies: No Known Allergies (01/10/17) Reconcile Medications Amlodipine Besylate 5 MG TABLET 1 TAB PO DAILY HEART (Reported) Aspirin (Ecotrin*) 81 MG TABLET.DR 1 TAB PO DAILY HEART/BLOOD (Reported) Calcitriol 0.25 MCG CAPSULE 1 CAP PO DAILY BONES (Reported) Captopril 50 MG TABLET 1 TAB PO BID HEART (Reported) Cholecalciferol (Vitamin D3) (Vitamin D3) 1,000 UNIT CAPSULE 1 CAP PO DAILY SUPPLEMENT (Reported) Diazepam (Valium) 2 MG TABLET 1 TAB PO TID PRN ANXIETY Diclofenac Sodium (Voltaren) 100 GM GEL..GRAM. 1 GM TOP 4 TIMES/DAY ARTHRITIS (Reported) apply to affected area(s) Gabapentin 300 MG CAPSULE 1 CAP PO TID NERVE PAIN/MENTAL HEALTH (Reported) Humulin 70-30 (Humulin 70-30 Vial) 100 UNIT/1 ML VIAL 10 UNITS SC QAM AC Diabetes (Reported) Humulin 70-30 (Humulin 70-30 Vial) 100 UNIT/1 ML VIAL 8 UNIT SC QPM AC DIABETES (Reported) Lipase/Protease/Amylase (Zenpep Dr 40,000 Units Capsule) 40K-136K CAPSULE. 1 CAP PO TID PANCREASE (Reported) Magnesium Oxide (Magnesium) 400 MG CAPSULE 1 CAP PO DAILY MAG Nebivolol HCl (Bystolic) 20 MG TABLET 1 TAB PO DAILY BP (Reported) Omeprazole Magnesium (Prilosec Otc) 20 MG TABLET. 1 TAB PO BID GASTRITIS Ondansetron (Zofran Odt) 4 MG TAB.RAPDIS 1 TAB SL TID PRN nausea Promethazine HCl 25 MG TABLET 1 TAB PO Q6P PRN NAUSEA Tramadol HCl 50 MG TABLET 1-2 TAB PO Q6 PRN pain Zolpidem Tartrate (Ambien) 5 MG TABLET 1 TAB PO QPMP insomnia May repeat in 45 minutes if no effect on sleep Triage Note: PT STATES HIS BATTERY FOR HIS GLUCOMETER TODAY, LAST BS 200 AT 1200, CURRENTLY 301. DENIES COMPLAINTS Triage Nurses Notes Reviewed? yes Onset: Abrupt Duration: constant Timing: recent history Severity: mild Severity Numbers: 1 HPI: Patient is a 61-year-old male with past medical history of type 2 diabetes who presents emergency him saying that today his glucometer ran out of batteries where he is unable to check his blood sugar. Patient otherwise is without complaints. Patient does have refills of his prescriptions at the pharmacy tomorrow where he will pick it up. 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 Patient is asymptomatic denies any illness (SUNI CLEARY) Past History Travel History Traveled to [place] past 21 day No Medical History Any Pertinent Medical History? 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 No (SUNI CLEARY) Review of Systems Review of Systems Constitutional: Reports: no symptoms. EENTM: Reports: no symptoms. Respiratory: Reports: no symptoms. Cardiovascular: Reports: no symptoms. GI: Reports: no symptoms. Genitourinary: Reports: no symptoms. Musculoskeletal: Reports: no symptoms. Skin: Reports: no symptoms. Neurological/Psychological: Reports: no symptoms. Hematologic/Endocrine: Reports: no symptoms. Immunologic/Allergic: Reports: no symptoms. All Other Systems: Reviewed and Negative (SUNI CLEARY) Physical Exam Physical Exam General Appearance: well developed/nourished, no apparent distress, alert Head: atraumatic Eyes: Bilateral: normal appearance. Ears, Nose, Throat: hearing grossly normal Respiratory: normal breath sounds Cardiovascular: regular rate/rhythm Back: normal inspection Extremities: normal inspection, normal capillary refill Skin: intact, normal color, warm/dry Core Measures ACS in differential dx? No CVA/TIA Diagnosis: No Severe Sepsis Present: No Septic Shock Present: No (SUNI CLEARY) Progress Differential Diagnoses I considered the following diagnoses in my evaluation of the patient: [ Hyperglycemia,, hhs, dka electrolyte abnormality JAY] Plan of Care: Patient currently is without complaints denies any illness blood glucose was 308. I strongly advised patient to continue with previously prescribed medications and to check his blood sugar as directed and he will comply Initial ED EKG: none (SUNI CLEARY) Departure Departure Disposition: HOME OR SELF CARE Condition: Stable Clinical Impression Primary Impression: Hyperglycemia Referrals: JAIMIE HARRIS,BECKA Lemus (PCP/Family) Additional Instructions: As discussed continue home medications as directed. Please obtain the battery for your glucometer and start checking her blood sugar as directed. Follow-up with your doctor as directed. If symptoms worsen return to emergency room Departure Forms: Customer Survey General Discharge Information (SUNI CLEARY) PA/ROLFER Co-Sign Statement Statement: ED Attending supervision documentation- [] I saw and evaluated the patient. I have also reviewed all the pertinent lab results and diagnostic results. I agree with the findings and the plan of care as documented in the PA's/ROLFER's documentation. [X] I have reviewed the ED Record and agree with the PA's/ROLFER's documentation. [] Additions or exceptions (if any) to the PAs/ROLFER's note and plan are summarized below: [] (MARCOS HARRIS,BECKA Pickering) Critical Care Note Critical Care Note Critical Care Time: non-applicable (SUNI CLEARY)
== END 2017-01-10 19:13 ==
LOC: ERH 18:19
DX: E11.65 Type 2 diabetes mellitus with hyperglycemia (principal); Z79.4 Long term (current) use of insulin
CPT/HCPCS: 99282

== ENCOUNTER 2017-01-18 20:13 | Emergency (ER) | payer OTHER ==
[~2017-01-18] VITALS: Ht 170.2 cm; Wt 70.3 kg
[2017-01-18 20:28] VITALS: BP 150/79
--- NOTE | 2017-01-18 20:29 | ED GENERAL ADULT ---
History of Present Illness General Chief Complaint: General Adult Stated Complaint: LOW BLOOD SUGAR Source: patient, old records Exam Limitations: no limitations Vital Signs & Intake/Output Vital Signs & Intake/Output Vital Signs Date Time Temp Pulse Resp B/P B/P Pulse O2 O2 Flow FiO2 Mean Ox Delivery Rate 01/18 2029 99 Room Air 01/19 2028 98.3 89 15 150/79 100 Room Air Allergies Coded Allergies: No Known Allergies (01/10/17) Reconcile Medications Amlodipine Besylate 5 MG TABLET 1 TAB PO DAILY HEART (Reported) Aspirin (Ecotrin*) 81 MG TABLET.DR 1 TAB PO DAILY HEART/BLOOD (Reported) Calcitriol 0.25 MCG CAPSULE 1 CAP PO DAILY BONES (Reported) Captopril 50 MG TABLET 1 TAB PO BID HEART (Reported) Cholecalciferol (Vitamin D3) (Vitamin D3) 1,000 UNIT CAPSULE 1 CAP PO DAILY SUPPLEMENT (Reported) Diazepam (Valium) 2 MG TABLET 1 TAB PO TID PRN ANXIETY Diclofenac Sodium (Voltaren) 100 GM GEL..GRAM. 1 GM TOP 4 TIMES/DAY ARTHRITIS (Reported) apply to affected area(s) Gabapentin 300 MG CAPSULE 1 CAP PO TID NERVE PAIN/MENTAL HEALTH (Reported) Humulin 70-30 (Humulin 70-30 Vial) 100 UNIT/1 ML VIAL 10 UNITS SC QAM AC Diabetes (Reported) Humulin 70-30 (Humulin 70-30 Vial) 100 UNIT/1 ML VIAL 8 UNIT SC QPM AC DIABETES (Reported) Lipase/Protease/Amylase (Zenpep Dr 40,000 Units Capsule) 40K-136K CAPSULE. 1 CAP PO TID PANCREASE (Reported) Magnesium Oxide (Magnesium) 400 MG CAPSULE 1 CAP PO DAILY MAG Nebivolol HCl (Bystolic) 20 MG TABLET 1 TAB PO DAILY BP (Reported) Omeprazole Magnesium (Prilosec Otc) 20 MG TABLET.DR 1 TAB PO BID GASTRITIS Ondansetron (Zofran Odt) 4 MG TAB.RAPDIS 1 TAB SL TID PRN nausea Promethazine HCl 25 MG TABLET 1 TAB PO Q6P PRN NAUSEA Tramadol HCl 50 MG TABLET 1-2 TAB PO Q6 PRN pain Zolpidem Tartrate (Ambien) 5 MG TABLET 1 TAB PO QPMP insomnia May repeat in 45 minutes if no effect on sleep Triage Note: PT TO ED FOR "LOW BLOOD SUGAR" BG IN TRIAGE 102. PT REPORTING HE TOOK HIS SLIDING SCALE INSULIN AROUND 5:30 PM, FELT HIS SUGAR WAS GETTING LOW, ATE A PIECE OF PIZZA, DRANK A SODA "AND ATE A LOT OF SUGAR". PT ASYMPTOMATIC CURRENTLY. Triage Nurses Notes Reviewed? yes Onset: Abrupt Duration: hour(s): (3.5), better, constant Timing: single episode today Injury Environment: home Severity: mild Severity Numbers: 3 No Modifying Factors: none Associated Symptoms: denies HPI: 61-year-old male with history of diabetes pancreatitis presents to ER for evaluation after he states his blood sugar dropped a 47. The patient states earlier today his blood sugars greater than 300 which she took 30 units according to his sliding scale around 5:30 this evening. Patient states that he began to feel lightheaded and checked his sugar at which time was 47 had 2 cans of Coke a piece of pizza and sugar tablets. On arrival he denies any complaints and states he wanted to come get a second opinion. On arrival patient is without any complaints no chest pain shortness of breath fever chills no nausea vomiting or abdominal pain. 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 (SUNI ESPINOZA) Past History Travel History Traveled to [place] past 21 day No Medical History Any Pertinent Medical History? 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 No (SUNI ESPINOZA) Review of Systems Review of Systems Constitutional: Reports: see HPI. All Other Systems: Reviewed and Negative Comments Review of systems: See HPI, All other systems negative. Constitutional, no chills no fever, no malaise no weight loss HEENT: No visual changes no sore throat no congestion, no ear pain Cardiovascular: No chest pain , no palpitation Skin: no rashes, no change in skin Respiratory: No dyspnea no cough no sputum GI: No nausea no vomiting, no diarrhea, : No dysuria no frequency, no discharge Muscle skeletal: No joint pain, no back pain, no neck pain, Neurologic: No numbness no headache Psych: No stress Heme/endocrine: No bruising no bleeding Immunology: No lymphadenopathy (SUNI ESPINOZA) Physical Exam Physical Exam General Appearance: well developed/nourished, alert, awake Comments: Well-developed well-nourished patient in no apparent distress. HEENT: Atraumatic, extraocular motion intact Neck: Supple, FROM Back: FROM Cardiovascular: Regular rate and rhythms no murmurs rubs Respiratory: Chest nontender.There were no bony deformities, no asymmetry. No respiratory distress. Patient speaking in full complete sentences. Breath sounds clear to auscultation bilaterally: NO W/R/R Extremities: full range of motion Neuro: awake, alert, and oriented to person, place and time. There were no obvious focal neurologic abnormalities. Skin: Warm & dry;No appreciable rash on exposed skin Psych: Mood affect normal, normal memory normal judgment. Core Measures ACS in differential dx? No CVA/TIA Diagnosis: No Severe Sepsis Present: No Septic Shock Present: No (SUNI ESPINOZA) Progress Differential Diagnoses I considered the following diagnoses in my evaluation of the patient: Hypoglycemia hyperglycemia DKA HHS electrolyte abnormality dehydration Plan of Care: 2034 Patient clinically appears well he is well-known to this ER he appears in no apparent distress blood sugars 102 currently. He took 30 units at around 5: 30 this evening at this time, he is ambulatory with steady gait discussed with him plan of care he feels comfortable plan discharge advise close all the Dr. Lora tomorrow return anytime sooner with any concerns cleared for discharge Initial ED EKG: none (SUNI ESPINOZA) Departure Departure Time of Disposition: 2028 Disposition: HOME OR SELF CARE Condition: Stable Clinical Impression Primary Impression: Normal exam Referrals: BECKA LORA MD (PCP/Family) Additional Instructions: follow up with dr lora your table cut off saw operator tomorrow as you may need your sliding scale adjusted. return at anytime sooner with any concerns Departure Forms: Customer Survey General Discharge Information (SUNI ESPINOZA) PA/CITRIX ARCHITECT Co-Sign Statement Statement: ED Attending supervision documentation- [] I saw and evaluated the patient. I have also reviewed all the pertinent lab results and diagnostic results. I agree with the findings and the plan of care as documented in the PA's/CITRIX ARCHITECT's documentation. [X] I have reviewed the ED Record and agree with the PA's/CITRIX ARCHITECT's documentation. [] Additions or exceptions (if any) to the PAs/CITRIX ARCHITECT's note and plan are summarized below: [] (MERLY HARRIS,LUIS ALFREDO) Critical Care Note Critical Care Note Critical Care Time: non-applicable (SUNI ESPINOZA)
== END 2017-01-18 20:48 ==
LOC: ERH 20:13
DX: E10.649 Type 1 diabetes mellitus with hypoglycemia without coma (principal)

== ENCOUNTER 2017-01-24 12:22 | Emergency (ER) | payer OTHER ==
[~2017-01-24] VITALS: Ht 170.2 cm; Wt 70.3 kg
--- NOTE | 2017-01-24 12:59 | ED MVC/FALL/TRAUMA COMPLAINT ---
History of Present Illness General Chief Complaint: Lower Extremity Injury Stated Complaint: FALL 01/23 KNEE PAIN Source: patient, old records Exam Limitations: no limitations Vital Signs & Intake/Output Vital Signs & Intake/Output Vital Signs Date Time Temp Pulse Resp B/P B/P Pulse O2 O2 Flow FiO2 Mean Ox Delivery Rate 01/24 1440 97.2 58 18 18/74 95 Room Air 01/24 1227 98.1 61 20 143/87 97 Room Air Allergies Coded Allergies: No Known Allergies (01/10/17) Reconcile Medications Amlodipine Besylate 5 MG TABLET 1 TAB PO DAILY HEART (Reported) Aspirin (Ecotrin*) 81 MG TABLET.DR 1 TAB PO DAILY HEART/BLOOD (Reported) Calcitriol 0.25 MCG CAPSULE 1 CAP PO DAILY BONES (Reported) Captopril 50 MG TABLET 1 TAB PO BID HEART (Reported) Cholecalciferol (Vitamin D3) (Vitamin D3) 1,000 UNIT CAPSULE 1 CAP PO DAILY SUPPLEMENT (Reported) Diazepam (Valium) 2 MG TABLET 1 TAB PO TID PRN ANXIETY Diclofenac Sodium (Voltaren) 100 GM GEL..GRAM. 1 GM TOP 4 TIMES/DAY ARTHRITIS (Reported) apply to affected area(s) Gabapentin 300 MG CAPSULE 1 CAP PO TID NERVE PAIN/MENTAL HEALTH (Reported) Humulin 70-30 (Humulin 70-30 Vial) 100 UNIT/1 ML VIAL 10 UNITS SC QAM AC Diabetes (Reported) Humulin 70-30 (Humulin 70-30 Vial) 100 UNIT/1 ML VIAL 8 UNIT SC QPM AC DIABETES (Reported) Ibuprofen 800 MG TABLET 1 TAB PO Q8P PRN pain Lipase/Protease/Amylase (Zenpep Dr 40,000 Units Capsule) 40K-136K CAPSULE.DR 1 CAP PO TID PANCREASE (Reported) Magnesium Oxide (Magnesium) 400 MG CAPSULE 1 CAP PO DAILY MAG Nebivolol HCl (Bystolic) 20 MG TABLET 1 TAB PO DAILY BP (Reported) Omeprazole Magnesium (Prilosec Otc) 20 MG TABLET.DR 1 TAB PO BID GASTRITIS Ondansetron (Zofran Odt) 4 MG TAB.RAPDIS 1 TAB SL TID PRN nausea Promethazine HCl 25 MG TABLET 1 TAB PO Q6P PRN NAUSEA Tramadol HCl 50 MG TABLET 1-2 TAB PO Q6 PRN pain Zolpidem Tartrate (Ambien) 5 MG TABLET 1 TAB PO QPMP insomnia May repeat in 45 minutes if no effect on sleep Triage Note: PT C/O RIGHT KNEE PAIN AFTER TRIP AND FALL IN KITCHEN ON 01/23 Triage Nurses Notes Reviewed? yes Onset: yesterday Duration: day(s):, constant, continues in ED Timing: recent history Severity: mild Injuries/Fall Location: lower extremity (right knee) Method of Injury: direct blow, fall Loss of Consciousness: no loss of consciousness No Modifying Factors: none HPI: 1 day prior to admission patient lost his balance and fell onto his right knee. He complains of mild sharp pain worse with weightbearing nonradiating. He denies fever chills nausea vomiting diarrhea abdominal pain chest pain shortness breath headache dysuria rash bleeding. Past History Travel History Traveled to [place] past 21 day No Medical History Any Pertinent Medical History? 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 No Review of Systems Review of Systems Constitutional: Reports: no symptoms. Eyes: Reports: no symptoms. Ears, Nose, Throat, Mouth: Reports: no symptoms. Respiratory: Reports: no symptoms. Cardiovascular: Reports: no symptoms. Gastrointestinal/Abdominal: Reports: no symptoms. Genitourinary: Reports: no symptoms. Musculoskeletal: Reports: see HPI, joint pain. Skin: Reports: no symptoms. Neurological/Psychological: Reports: no symptoms. All Other Systems: Reviewed and Negative Physical Exam Physical Exam General Appearance: well developed/nourished, alert, awake, anxious, mild distress, thin Head: atraumatic, normal appearance Eyes: Bilateral: normal appearance, PERRL, EOMI, normal inspection. Ears, Nose, Throat, Mouth: hearing grossly normal, moist mucous membrane Neck: normal inspection, supple, full range of motion, normal alignment, no midline tenderness Respiratory: normal breath sounds, chest non-tender, no respiratory distress, quiet respiration, lungs clear Cardiovascular: regular rate/rhythm, normal peripheral pulses, norml femoral pulses equa Peripheral Pulses: 4+ carotid (R), 4+ carotid (L) Gastrointestinal: normal bowel sounds, soft, non-tender, no organomegaly Back: normal inspection, normal range of motion Extremities: normal range of motion, no ligament instability Neurologic/Psych: no motor/sensory deficits, awake, alert, oriented x 3, normal gait, normal mood/affect, instructor psychiatric aide II-XII nml as tested Skin: intact, normal color, warm/dry Core Measures ACS in differential dx? No Severe Sepsis Present: No Septic Shock Present: No Progress Differential Diagnosis: ext injury Plan of Care: Current Medications Sig/Martir Start time Last Medication Dose Stop Time Status Admin Ibuprofen 800 MG ONCE ONE 01/24 1430 UNVr (Motrin) 01/24 1431 Diagnostic Imaging: Viewed by Me: Radiology Read. Discussed w/RAD: Radiology Read. Radiology Impression: no acute abnormality, no fracture Departure Departure Time of Disposition: 1423 Disposition: HOME OR SELF CARE Condition: Stable Clinical Impression Primary Impression: Arthritis of right knee Secondary Impressions: Fall at home Qualifiers: Encounter type: initial encounter Qualified Codes: W19.XXXA - Unspecified fall, initial encounter; Y92.099 - Unspecified place in other non- institutional residence as the place of occurrence of the external cause Referrals: JAIMIE HARRIS,BECKA Lemus (PCP/Family) Departure Forms: Customer Survey General Discharge Information Prescriptions: Current Visit Scripts Ibuprofen 1 TAB PO Q8P PRN pain #50 TAB
--- NOTE | 2017-01-24 13:30 | RADIOLOGY REPORT ---
EXAMINATION: XR KNEE, RIGHT CLINICAL INFORMATION: Fall. Pain. COMPARISON: No relevant prior imaging is available. TECHNIQUE: Four views of the right knee. FINDINGS: There is pronounced meniscal chondrocalcinosis. There is mild narrowing of the medial and lateral compartments of the right knee. The patellofemoral compartment is grossly intact. There is no acute fracture or dislocation. Soft tissues are unremarkable. IMPRESSION: There is pronounced meniscal chondrocalcinosis and mild joint space narrowing of the medial and lateral compartments of the right knee. Otherwise unremarkable examination without acute fracture or dislocation.
[2017-01-24] MEDS ORDERED: IBUPROFEN800 M1 PO (14:26)
[2017-01-24 14:40] VITALS: BP 18/74
== END 2017-01-24 14:41 ==
LOC: ERH 12:22
DX: M17.9 Osteoarthritis of knee, unspecified (principal)
CPT/HCPCS: 73562-RT

== ENCOUNTER 2017-02-13 15:40 | Observation (INO) | payer OTHER ==
[~2017-02-13] VITALS: Ht 170.2 cm; Wt 70.3 kg
[~2017-02-13 15:40] MED LIST changes: +IBUPROFEN800 M1 PO
--- NOTE | 2017-02-13 17:59 | ED GENERAL ADULT ---
See Addendum History of Present Illness General Chief Complaint: General Adult Stated Complaint: "HIGH SUGAR" Source: patient Exam Limitations: no limitations Vital Signs & Intake/Output Vital Signs & Intake/Output Vital Signs Date Time Temp Pulse Resp B/P B/P Pulse O2 O2 Flow FiO2 Mean Ox Delivery Rate 02/13 2126 98.8 76 16 148/89 98 Room Air 02/13 1814 Room Air 02/13 1552 98.6 72 18 166/99 98 Room Air Allergies Coded Allergies: No Known Allergies (01/10/17) Triage Note: 61 YO MALE TO TRIAGE C/O HIGH BLOOD SUGAR. STATES HIS MACHINE READ >500 AT HOME. PT STATES HE TOOK 30UNITS OF INSULIN TRAUMA REGISTRAR. BLOOD SUGAR 472 AT THIS TIME. PT STATES HE IS "FEELING FINE." STATES "I THINK I ATE TO MUCH PASTA" Triage Nurses Notes Reviewed? yes HPI: 61-year-old male with a history of hypertension and diabetes presenting with hyperglycemia. Reports that he ate a large bowl of pasta and then checked his glucose which was greater than 500. Gave himself 30 units of NPH in attempt to reduce his sugar. He normally takes 8 units of NPH in the morning and 10 units of NPH in the evening. Denies SI. (HERMAN TORRES,HODAN) Reconcile Medications Amlodipine Besylate 5 MG TABLET 1 TAB PO DAILY HEART (Reported) Aspirin (Ecotrin*) 81 MG TABLET.DR 1 TAB PO DAILY HEART/BLOOD (Reported) Calcitriol 0.25 MCG CAPSULE 1 CAP PO DAILY BONES (Reported) Captopril 50 MG TABLET 1 TAB PO BID HEART (Reported) Cholecalciferol (Vitamin D3) (Vitamin D3) 1,000 UNIT CAPSULE 1 CAP PO DAILY SUPPLEMENT (Reported) Diclofenac Sodium (Voltaren) 100 GM GEL..GRAM. 1 GM TOP 4 TIMES/DAY ARTHRITIS (Reported) apply to affected area(s) Escitalopram Oxalate 10 MG TABLET 1 TAB PO DAILY MENTAL HEALTH (Reported) Gabapentin 300 MG CAPSULE 1 CAP PO TID NERVE PAIN/MENTAL HEALTH (Reported) Humulin 70-30 (Humulin 70-30 Vial) 100 UNIT/1 ML VIAL 10 UNITS SC QAM AC Diabetes (Reported) Humulin 70-30 (Humulin 70-30 Vial) 100 UNIT/1 ML VIAL 8 UNIT SC QPM AC DIABETES (Reported) Ibuprofen 800 MG TABLET 1 TAB PO Q8P PRN pain Lipase/Protease/Amylase (Lisbeth Roldan 40,000 Units Capsule) 40K-136K CAPSULE. 1 CAP PO TID PANCREASE (Reported) Magnesium Oxide (Magnesium) 400 MG CAPSULE 1 CAP PO DAILY MAG Nebivolol HCl (Bystolic) 20 MG TABLET 1 TAB PO DAILY BP (Reported) Omeprazole Magnesium (Prilosec Otc) 20 MG TABLET. 1 TAB PO BID GASTRITIS Zolpidem Tartrate (Ambien) 5 MG TABLET 1 TAB PO QPMP insomnia May repeat in 45 minutes if no effect on sleep (MARCOS HARRIS,BECKA Pickering) Past History Travel History Traveled to [place] past 21 day No Medical History Any Pertinent Medical History? 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 No (HODAN SUTTON PA-C) Review of Systems Review of Systems Constitutional: Reports: no symptoms. EENTM: Reports: no symptoms. Respiratory: Reports: no symptoms. Cardiovascular: Reports: no symptoms. GI: Reports: no symptoms. Genitourinary: Reports: no symptoms. Musculoskeletal: Reports: no symptoms. Skin: Reports: no symptoms. Neurological/Psychological: Reports: no symptoms. (HODAN SUTTON PA-C) Physical Exam Physical Exam General Appearance: well developed/nourished, no apparent distress, comfortable Head: atraumatic Ears, Nose, Throat: normal ENT inspection, moist mucous membranes Respiratory: normal breath sounds, lungs clear Cardiovascular: regular rate/rhythm Gastrointestinal: normal bowel sounds, soft, non-tender Neurologic/Psych: awake, alert, oriented x 3 Skin: intact, normal color, warm/dry Core Measures ACS in differential dx? No CVA/TIA Diagnosis: No Severe Sepsis Present: No Septic Shock Present: No (HODAN SUTTON PA-C) Progress Differential Diagnoses I considered the following diagnoses in my evaluation of the patient: [ Hyperglycemia versus DKA versus HHS versus hypoglycemia] Plan of Care: Orders Procedure Date/time Status Regular Diet 02/14 B Active FingerStick- Glucose 02/[address] in observation 02/14 1952 Active Patient Data 02/14 1952 Active Code Status 02/14 1952 Active Intake & Output 02/13 1814 Active URINALYSIS 02/13 1755 Complete BASIC METABOLIC PANEL 02/13 1755 Complete Current Medications Sig/Martir Start time Last Medication Dose Stop Time Status Admin Dextrose/Sodium 1,000 ML ONCE ONE 02/14 2000 AC 02/13 Chloride 02/14 (D5-Normal Saline) Laboratory Tests 02/13/172119: Urine Color STRAW, Urine Clarity CLEAR, Urine pH 7.0, Ur Specific Godley <= 1.005, Urine Protein NEG, Urine Ketones NEG, Urine Nitrite NEG, Urine Bilirubin NEG, Urine Urobilinogen 0.2, Ur Leukocyte Esterase NEG, Ur Microscopic EXAM NOT REQUIRED, Urine Hemoglobin NEG, Urine Glucose NEG 02/13/171925: Anion Gap 10, Estimated GFR 41 L, BUN/Creatinine Ratio 12.9, Glucose 134 H, Calcium 8.7 Patient's glucose on arrival was greater than 400. Repeat within an hour glucose was found to be in the 70s. Patient given food for by mouth intake, started on D5 drip at 75 mL an hour. Patient will be kept in ED observation to monitor frequent fingersticks as nph will take approximately 10 hours to peak and has a total duration of up to 24 hours. Labs are workup for hypokalemia at 3.3, ordered for 40 mEq of by mouth potassium. (HODAN SUTTON PA-C) Initial ED EKG: none (HERMAN TORRES,HODAN) Departure Departure Condition: Stable Referrals: JAIMIE HARRIS,BECKA Lemus (PCP/Family) Departure Forms: Customer Survey General Discharge Information (HODAN SUTTON PA-C) Departure Disposition: HOME OR SELF CARE Clinical Impression Primary Impression: Insulin overdose Qualifiers: Encounter type: initial encounter Injury intent: accidental or unintentional Qualified Code: T38.3X1A - Poisoning by insulin and oral hypoglycemic [antidiabetic] drugs, accidental (unintentional), initial encounter PA/UNIX SYSTEMS ADMINISTRATOR Co-Sign Statement Statement: ED Attending supervision documentation- [X] I saw and evaluated the patient. I have also reviewed all the pertinent lab results and diagnostic results. I agree with the findings and the plan of care as documented in the PA's/UNIX SYSTEMS ADMINISTRATOR's documentation. [X]X I have reviewed the ED Record and agree with the PA's/UNIX SYSTEMS ADMINISTRATOR's documentation. [] Additions or exceptions (if any) to the PAs/UNIX SYSTEMS ADMINISTRATOR's note and plan are summarized below: [] (MARCOS HARRIS,BECKA Pickering) Critical Care Note Critical Care Note Critical Care Time: non-applicable (HERMAN TORRES,HODAN) ED Attending Observation Initial Observation Note: I have seen and personally examined MANJU ERICKSON on 02/13/17 at 1953. I agree with the current emergency department documentation. The disposition (admission or discharge) is uncertain at this time, he needs a period of observation for the following reason(s): [Manju has accidentally overdosed on his NPH. He denies any suicidal ideations. NPH will peak and 10 hours. Patient placed on maintenance including D5). Patient will need serial fingersticks. His sugar continues. He may require admission.] The ED Nurse caring for this patient has been personally informed as to what the patient is being observed for. Observation Re-Evaluation: I have reevaluated MANJU ERICKSON on 02/13/17 at 2321. The physical findings that support the continued need to observe this patient include [FINGER STICK 105. PT IS ASYMPTOMATIC.]. Observation Discharge: I have reevaluated MANJU ERICKSON on 02/13/17 at 2321. The patient is: (): Stable for discharge (): To be admitted to Nursing Floor (): To be placed in Observation on Nursing Floor (): For transfer to other facility The patient was being observed for [SERIAL FINGERSTICKS] As a result of that observation, I have determined [patient is insistent upon going home. Patient is alert and oriented. Patient is competent to make this decision. Patient verbally understands that the half-life of NPH is 10 hours and he has not been here for 10 hours. Patient states he knows what to look out for.]. (MARCOS HARRIS,BECKA Pickering)
[2017-02-13] MEDS ORDERED: ESCITALOPRAM OX10 MG PO (18:44)
[2017-02-14 01:30] VITALS: BP 136/91
== END 2017-02-14 02:27 | disposition left against medical advice (07) ==
LOC: ERH 15:40 → ERHI 19:52 → ERH 19:52 → ERHI 20:01 → EDBEDREQSVC 23:30 → ERHI 02-14 02:26
PROVIDERS: ADMIT Emergency Medicine
DX: I13.10 Hypertensive heart and chronic kidney disease without heart failure, with stage 1 through stage 4 chronic kidney disease, or unspecified chronic kidney disease (principal); E11.22 Type 2 diabetes mellitus with diabetic chronic kidney disease; E11.65 Type 2 diabetes mellitus with hyperglycemia; N18.3 Chronic kidney disease, stage 3 (moderate); Z79.4 Long term (current) use of insulin; F41.9 Anxiety disorder, unspecified; K86.1 Other chronic pancreatitis; F32.9 Major depressive disorder, single episode, unspecified; F17.200 Nicotine dependence, unspecified, uncomplicated; E83.42 Hypomagnesemia; E11.40 Type 2 diabetes mellitus with diabetic neuropathy, unspecified
CPT/HCPCS: 81003; G0378; J7042

== ENCOUNTER 2017-02-16 15:24 | Emergency (ER) | payer OTHER ==
[~2017-02-16 15:24] MED LIST changes: +ESCITALOPRAM OX10 MG PO
[2017-02-16 15:36] VITALS: BP 162/99
== END 2017-02-16 16:38 | disposition admitted as inpatient to this hospital (09) ==
LOC: ERH 15:24
DX: R73.9 Hyperglycemia, unspecified (principal)

== ENCOUNTER 2017-02-25 18:25 | Emergency (ER) | payer OTHER ==
[~2017-02-25] VITALS: Ht 170.2 cm; Wt 70.3 kg
[2017-02-25 19:14] VITALS: BP 168/86
--- NOTE | 2017-02-25 19:31 | ED NECK/BACK PAIN COMPLAINT ---
History of Present Illness General Chief Complaint: General Adult Stated Complaint: PT HAVING PAIN NECK Source: patient Exam Limitations: no limitations Vital Signs & Intake/Output Vital Signs & Intake/Output Vital Signs Date Time Temp Pulse Resp B/P B/P Pulse O2 O2 Flow FiO2 Mean Ox Delivery Rate 02/25 1914 98.4 82 17 168/86 98 Room Air 02/25 1907 Room Air 02/25 1830 98.5 85 18 170/112 96 Room Air Room Air ED Intake and Output 02/26 0000 02/25 1200 Intake Total Output Total Balance Patient 70.307 kg Weight Weight Reported by Patient Measurement Method Allergies Coded Allergies: No Known Allergies (01/10/17) Reconcile Medications Amlodipine Besylate 5 MG TABLET 1 TAB PO DAILY HEART (Reported) Aspirin (Ecotrin*) 81 MG TABLET.DR 1 TAB PO DAILY HEART/BLOOD (Reported) Calcitriol 0.25 MCG CAPSULE 1 CAP PO DAILY BONES (Reported) Captopril 50 MG TABLET 1 TAB PO BID HEART (Reported) Cholecalciferol (Vitamin D3) (Vitamin D3) 1,000 UNIT CAPSULE 1 CAP PO DAILY SUPPLEMENT (Reported) Diclofenac Sodium (Voltaren) 100 GM GEL..GRAM. 1 GM TOP 4 TIMES/DAY ARTHRITIS (Reported) apply to affected area(s) Escitalopram Oxalate 10 MG TABLET 1 TAB PO DAILY MENTAL HEALTH (Reported) Gabapentin 300 MG CAPSULE 1 CAP PO TID NERVE PAIN/MENTAL HEALTH (Reported) Humulin 70-30 (Humulin 70-30 Vial) 100 UNIT/1 ML VIAL 10 UNITS SC QAM AC Diabetes (Reported) Humulin 70-30 (Humulin 70-30 Vial) 100 UNIT/1 ML VIAL 8 UNIT SC QPM AC DIABETES (Reported) Ibuprofen 800 MG TABLET 1 TAB PO Q8P PRN pain Lipase/Protease/Amylase (Zenpep Dr 40,000 Units Capsule) 40K-136K CAPSULE.DR 1 CAP PO TID PANCREASE (Reported) Magnesium Oxide (Magnesium) 400 MG CAPSULE 1 CAP PO DAILY MAG Nebivolol HCl (Bystolic) 20 MG TABLET 1 TAB PO DAILY BP (Reported) Omeprazole Magnesium (Prilosec Otc) 20 MG TABLET.DR 1 TAB PO BID GASTRITIS Zolpidem Tartrate (Ambien) 5 MG TABLET 1 TAB PO QPMP insomnia May repeat in 45 minutes if no effect on sleep Triage Note: TRIAGE: 61 Y/O MALE PRESENTS C/O NECK PAIN - "THOSE MOTRIN [address] CHILD GAVE ME AIN'T DOING NOTHING." ALSO HYPERTENSIVE IN TRIAGE. PATIENT CLAIMS THAT HE TOOK BP MEDS APPROPRIATELY TODAY. Triage Nurses Notes Reviewed? yes HPI: 61M CHRONIC NECK PAIN FROM OSTEOARTHRITIS REPORTING THAT HE HAS NECK PAIN. FULL RANGE OF MOTION, NO NEUROLOGICAL COMPLAINTS, PATIENT APPEARS COMFORTABLE. Past History Travel History Traveled to [place] past 21 day No Medical History Any Pertinent Medical History? see below for history Neurological: NONE EENT: allergies Cardiovascular: hypertension Respiratory: NONE Gastrointestinal: constipation, chronic pancreatitis noticed on CAT scan Hepatic: NONE Renal: NONE Musculoskeletal: chronic back pain, ARTHRITIS Psychiatric: NONE Endocrine: diabetes Blood Disorders: NONE Cancer(s): NONE [employer]/Reproductive: NONE History of MRSA: No History of VRE: No History of CDIFF: No Surgical History Surgical History: appendectomy, DEVIATED SEPTUM,HERNIA Psychosocial History Who do you live with Patient/Self Services at Home None What is your primary language Canadian Tobacco Use: Refused to answer ETOH Use: denies use Illicit Drug Use: denies illicit drug use Family History Family History, If Any: FATHER FH: diabetes mellitus FH: renal failure MOTHER FH: hyperlipidemia Relation not specified for: FH: CHF (congestive heart failure) Hx Contributory? No Review of Systems Review of Systems Constitutional: Reports: no symptoms. Eyes: Reports: no symptoms. Ears, Nose, Throat, Mouth: Reports: no symptoms. Respiratory: Reports: no symptoms. Cardiovascular: Reports: no symptoms. Gastrointestinal/Abdominal: Reports: no symptoms. Musculoskeletal: Reports: see HPI. Skin: Reports: no symptoms. Neurological/Psychological: Reports: no symptoms. All Other Systems: Reviewed and Negative Physical Exam Physical Exam General Appearance: well developed/nourished, no apparent distress, alert, awake , comfortable Head: atraumatic, normal appearance Eyes: Bilateral: normal appearance. Ears, Nose, Throat, Mouth: moist mucous membrane Neck: normal inspection, supple, full range of motion, paraspinous muscle tender Respiratory: normal breath sounds Cardiovascular: regular rate/rhythm Gastrointestinal: soft Back: normal inspection, normal range of motion, no vertebral tenderness Extremities: non-tender, normal range of motion Progress Differential Diagnosis: AAA, aortic dissection, C spine injury, carotid dissection, cauda equina syn, herniated disc, myofascial strain, pyelo/UTI, sciatica, spinal cord inj, thoracic outlet syn, T/L spine injury, ureterolithiasis Plan of Care: Current Medications Sig/Martir Start time Last Medication Dose Stop Time Status Admin Ketorolac 15 MG ONE ONE 02/25 1930 UNVr Tromethamine 02/25 1931 (Toradol) GIVEN TORADOL WITH ADEQUATE PAIN RELIEF. PATIENT MAY BE DISCHARGED HOME, CONTINUE MOTRIN PRN, FOLLOW UP WITH PCP. (SHANNEN HARRIS,MISSY) Departure Departure Time of Disposition: 2006 Disposition: HOME OR SELF CARE Condition: Stable Clinical Impression Primary Impression: Chronic neck pain Referrals: JAIMIE HARRIS,BECKA Lemus (PCP/Family) Departure Forms: Customer Survey General Discharge Information
== END 2017-02-25 20:22 ==
LOC: ERH 18:25
DX: G89.29 Other chronic pain (principal); M54.2 Cervicalgia
CPT/HCPCS: 96372; J1885

== ENCOUNTER 2017-03-05 22:23 | Emergency (ER) | payer OTHER ==
--- NOTE | 2017-03-05 22:30 | ED GENERAL ADULT ---
History of Present Illness General Chief Complaint: General Adult Stated Complaint: "PER PT SUGAR TOO HIGH OVER 500" Source: patient Exam Limitations: no limitations Vital Signs & Intake/Output Vital Signs & Intake/Output Vital Signs Date Time Temp Pulse Resp B/P B/P Pulse O2 O2 Flow FiO2 Mean Ox Delivery Rate 03/06 0053 80 16 154/90 98 03/05 2358 84 171/101 03/05 2234 99.2 86 16 158/104 98 Room Air Allergies Coded Allergies: No Known Allergies (01/10/17) Reconcile Medications Amlodipine Besylate 5 MG TABLET 1 TAB PO DAILY HEART (Reported) Aspirin (Ecotrin*) 81 MG TABLET.DR 1 TAB PO DAILY HEART/BLOOD (Reported) Calcitriol 0.25 MCG CAPSULE 1 CAP PO DAILY BONES (Reported) Captopril 50 MG TABLET 1 TAB PO BID HEART (Reported) Cholecalciferol (Vitamin D3) (Vitamin D3) 1,000 UNIT CAPSULE 1 CAP PO DAILY SUPPLEMENT (Reported) Diclofenac Sodium (Voltaren) 100 GM GEL..GRAM. 1 GM TOP 4 TIMES/DAY ARTHRITIS (Reported) apply to affected area(s) Escitalopram Oxalate 10 MG TABLET 1 TAB PO DAILY MENTAL HEALTH (Reported) Gabapentin 300 MG CAPSULE 1 CAP PO TID NERVE PAIN/MENTAL HEALTH (Reported) Humulin 70-30 (Humulin 70-30 Vial) 100 UNIT/1 ML VIAL 10 UNITS SC QAM AC Diabetes (Reported) Humulin 70-30 (Humulin 70-30 Vial) 100 UNIT/1 ML VIAL 8 UNIT SC QPM AC DIABETES (Reported) Ibuprofen 800 MG TABLET 1 TAB PO Q8P PRN pain Lipase/Protease/Amylase (Zenpep Dr 40,000 Units Capsule) 40K-136K CAPSULE.DR 1 CAP PO TID PANCREASE (Reported) Magnesium Oxide (Magnesium) 400 MG CAPSULE 1 CAP PO DAILY MAG Nebivolol HCl (Bystolic) 20 MG TABLET 1 TAB PO DAILY BP (Reported) Omeprazole Magnesium (Prilosec Otc) 20 MG TABLET.DR 1 TAB PO BID GASTRITIS Zolpidem Tartrate (Ambien) 5 MG TABLET 1 TAB PO QPMP insomnia May repeat in 45 minutes if no effect on sleep Triage Nurses Notes Reviewed? yes Onset: Gradual Duration: hour(s): Timing: recent history Injury Environment: home Severity: moderate Modifying Factors: Improves With: medication, rest. Associated Symptoms: "I feel fine." HPI: 61-year-old gentleman history diabetes presents from home after his glucometer read more than 500. He states that tonight he ate some pizza. He noted that his sugar was elevated. He comes emergency department for further management. He states that he is otherwise feeling well. He has no syncopal symptoms, dizziness, weakness, polydipsia, polyuria. He is otherwise well and has no other concerns. Past History Travel History Traveled to [place] past 21 day No Medical History Any Pertinent Medical History? see below for history Neurological: NONE EENT: allergies Cardiovascular: hypertension Respiratory: NONE Gastrointestinal: constipation, chronic pancreatitis noticed on CAT scan Hepatic: NONE Renal: NONE Musculoskeletal: chronic back pain, ARTHRITIS Psychiatric: NONE Endocrine: diabetes Blood Disorders: NONE Cancer(s): NONE [employer]/Reproductive: NONE History of MRSA: No History of VRE: No History of CDIFF: No Surgical History Surgical History: appendectomy, DEVIATED SEPTUM,HERNIA Psychosocial History Who do you live with Patient/Self Services at Home None What is your primary language Cambodian Family History Family History, If Any: FATHER FH: diabetes mellitus FH: renal failure MOTHER FH: hyperlipidemia Relation not specified for: FH: CHF (congestive heart failure) Hx Contributory? No Review of Systems Review of Systems Constitutional: Reports: no symptoms. EENTM: Reports: no symptoms. Respiratory: Reports: no symptoms. Cardiovascular: Reports: no symptoms. GI: Reports: no symptoms. Genitourinary: Reports: no symptoms. Musculoskeletal: Reports: no symptoms. Skin: Reports: no symptoms. Neurological/Psychological: Reports: no symptoms. Hematologic/Endocrine: Reports: no symptoms. Immunologic/Allergic: Reports: no symptoms. All Other Systems: Reviewed and Negative Physical Exam Physical Exam General Appearance: well developed/nourished, mild distress Head: atraumatic, normal appearance Eyes: Bilateral: normal appearance. Ears, Nose, Throat: normal pharynx Neck: normal inspection, supple, full range of motion Respiratory: normal breath sounds, chest non-tender, no respiratory distress, quiet respiration, lungs clear Cardiovascular: regular rate/rhythm Gastrointestinal: normal bowel sounds, soft, non-tender, no organomegaly Back: normal inspection, normal range of motion Extremities: normal inspection, normal capillary refill, normal range of motion, no edema Neurologic/Psych: no motor/sensory deficits, awake, alert, oriented x 3 Skin: intact, normal color, warm/dry Core Measures ACS in differential dx? No CVA/TIA Diagnosis: No Severe Sepsis Present: No Septic Shock Present: No Progress Differential Diagnoses I considered the following diagnoses in my evaluation of the patient: Hyperglycemia versus other. Plan of Care: Glucose reading in the ED was in the 400s. Patient given insulin 12 units subcutaneous 1. Upon review of his labs and recent admissions, he has been stable without significant. Patient stable to be managed with subcutaneous insulin. Initial ED EKG: none Departure Departure Disposition: HOME OR SELF CARE Condition: Stable Clinical Impression Primary Impression: Hyperglycemia Referrals: JAIMIE HARRIS,BECKA Lemus (PCP/Family) Departure Forms: Customer Survey General Discharge Information Comments blood glucose level was low 200's in ED after two doses of insulin. He felt comfortable going home. I encouraged patient to follow his blood glucose readings at home and to follow up with his pmd, following his sliding scale. Critical Care Note Critical Care Note Critical Care Time: non-applicable
[2017-03-06 00:53] VITALS: BP 154/90
== END 2017-03-06 00:50 ==
LOC: ERH 22:23
DX: E11.65 Type 2 diabetes mellitus with hyperglycemia (principal)
CPT/HCPCS: 96372

== ENCOUNTER 2017-03-19 18:15 | Emergency (ER) | payer OTHER ==
[~2017-03-19] VITALS: Ht 170.2 cm; Wt 68.0 kg
--- NOTE | 2017-03-19 19:26 | ED GENERAL ADULT ---
History of Present Illness General Chief Complaint: General Adult Stated Complaint: ELEVATED BS PER PT Source: patient Exam Limitations: no limitations Vital Signs & Intake/Output Vital Signs & Intake/Output Vital Signs Date Time Temp Pulse Resp B/P B/P Pulse O2 O2 Flow FiO2 Mean Ox Delivery Rate 03/19 2041 97.4 84 18 139/86 98 Room Air 03/19 2014 97.6 81 18 143/96 97 Room Air 03/197 97.7 80 18 177/98 99 Room Air 03/19 1846 99 Room Air 03/19 1845 90 16 177/99 99 Room Air 03/19 1844 92 16 190/105 98 Room Air 03/19 1819 97.7 102 16 182/112 93 Room Air ED Intake and Output 03/20 0000 03/19 1200 Intake Total Output Total Balance Patient 150 lb Weight Weight Reported by Patient Measurement Method Allergies Coded Allergies: No Known Allergies (01/10/17) Reconcile Medications Amlodipine Besylate 5 MG TABLET 1 TAB PO DAILY HEART (Reported) Aspirin (Ecotrin*) 81 MG TABLET.DR 1 TAB PO DAILY HEART/BLOOD (Reported) Calcitriol 0.25 MCG CAPSULE 1 CAP PO DAILY BONES (Reported) Captopril 50 MG TABLET 1 TAB PO BID HEART (Reported) Cholecalciferol (Vitamin D3) (Vitamin D3) 1,000 UNIT CAPSULE 1 CAP PO DAILY SUPPLEMENT (Reported) Diclofenac Sodium (Voltaren) 100 GM GEL..GRAM. 1 GM TOP 4 TIMES/DAY ARTHRITIS (Reported) apply to affected area(s) Escitalopram Oxalate 10 MG TABLET 1 TAB PO DAILY MENTAL HEALTH (Reported) Gabapentin 300 MG CAPSULE 1 CAP PO TID NERVE PAIN/MENTAL HEALTH (Reported) Humulin 70-30 (Humulin 70-30 Vial) 100 UNIT/1 ML VIAL 10 UNITS SC QAM AC Diabetes (Reported) Humulin 70-30 (Humulin 70-30 Vial) 100 UNIT/1 ML VIAL 8 UNIT SC QPM AC DIABETES (Reported) Ibuprofen 800 MG TABLET 1 TAB PO Q8P PRN pain Lipase/Protease/Amylase (Zenpep Dr 40,000 Units Capsule) 40K-136K CAPSULE.DR 1 CAP PO TID PANCREASE (Reported) Magnesium Oxide (Magnesium) 400 MG CAPSULE 1 CAP PO DAILY MAG Nebivolol HCl (Bystolic) 20 MG TABLET 1 TAB PO DAILY BP (Reported) Omeprazole Magnesium (Prilosec Otc) 20 MG TABLET.DR 1 TAB PO BID GASTRITIS Zolpidem Tartrate (Ambien) 5 MG TABLET 1 TAB PO QPMP insomnia May repeat in 45 minutes if no effect on sleep Triage Note: PT STATES HE HAS ELEVATED BS STATES HE ATE A LITTLE WRAP AND STATES HIS BS IS 450 Triage Nurses Notes Reviewed? yes Onset: Gradual Duration: hour(s): Timing: recent history Injury Environment: home Severity: mild Modifying Factors: Improves With: medication. Associated Symptoms: "My sugar was high." HPI: 61 yo gentleman, h/o diabetes on 70/30 insulin, presents with his sugar of 400's. "It was pretty good and then I ate half a sandwich, and then it went up into the 400's and so I came in." He notes he is otherwise well, without polyuria polydipsia, nausea, vomiting. Past History Travel History Traveled to [place] past 21 day No Medical History Any Pertinent Medical History? 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 No Review of Systems Review of Systems Constitutional: Reports: no symptoms. EENTM: Reports: no symptoms. Respiratory: Reports: no symptoms. Cardiovascular: Reports: no symptoms. GI: Reports: no symptoms. Genitourinary: Reports: no symptoms. Musculoskeletal: Reports: no symptoms. Skin: Reports: no symptoms. Neurological/Psychological: Reports: no symptoms. Hematologic/Endocrine: Reports: no symptoms. Immunologic/Allergic: Reports: no symptoms. All Other Systems: Reviewed and Negative Physical Exam Physical Exam General Appearance: well developed/nourished, no apparent distress Head: atraumatic, normal appearance Eyes: Bilateral: normal appearance. Ears, Nose, Throat: normal pharynx, normal ENT inspection Neck: normal inspection, supple, full range of motion Respiratory: normal breath sounds, chest non-tender, no respiratory distress, quiet respiration, lungs clear Cardiovascular: regular rate/rhythm Gastrointestinal: normal bowel sounds, soft, non-tender, no organomegaly Back: normal inspection, normal range of motion Extremities: normal inspection, normal capillary refill, normal range of motion, no edema Neurologic/Psych: no motor/sensory deficits, awake, alert, oriented x 3 Skin: intact, normal color, warm/dry Core Measures ACS in differential dx? No CVA/TIA Diagnosis: No Severe Sepsis Present: No Septic Shock Present: No Progress Differential Diagnoses I considered the following diagnoses in my evaluation of the patient: hyperglycemia vs other. Plan of Care: pt given insulin 10u... follow up glucose 180's. pt safe for discharge with close follow up advised. Initial ED EKG: none Departure Departure Disposition: HOME OR SELF CARE Condition: Stable Clinical Impression Primary Impression: Hyperglycemia due to insulin deficiency in Referrals: JAIMIE HARRIS,BECKA Lemus (PCP/Family) Departure Forms: Customer Survey General Discharge Information Critical Care Note Critical Care Note Critical Care Time: non-applicable
[2017-03-19 20:41] VITALS: BP 139/86
== END 2017-03-19 20:42 ==
LOC: ERH 18:15
DX: E11.65 Type 2 diabetes mellitus with hyperglycemia (principal)
CPT/HCPCS: J1815

== ENCOUNTER 2017-10-22 19:29 | Emergency (ER) | payer OTHER ==
[~2017-10-22] VITALS: Ht 170.2 cm; Wt 70.3 kg
[~2017-10-22 19:29] MED LIST changes: +DICLOFENAC SODI50 M3 PO; +HYDROXYZINE HCL50 M2 PO; +KEFLEX500 M1 PO; +MEDROL4 M2 PO; +POTASSIUM CHLO20 ME2 PO; +ZITHROMAX250 M2 PO
--- NOTE | 2017-10-22 19:45 | ED GENERAL ADULT ---
History of Present Illness General Chief Complaint: General Adult Stated Complaint: HIGH BLOOD SUGAR Source: patient Exam Limitations: no limitations Vital Signs & Intake/Output Vital Signs & Intake/Output Vital Signs Date Time Temp Pulse Resp B/P B/P Pulse O2 O2 Flow FiO2 Mean Ox Delivery Rate 10/22 2040 98.1 66 18 128/84 97 Room Air 10/22 2036 Room Air 10/22 1940 99.0 73 16 159/94 97 Room Air Allergies Coded Allergies: No Known Allergies (01/10/17) Reconcile Medications Amlodipine Besylate 5 MG TABLET 1 TAB PO DAILY HEART (Reported) Aspirin (Ecotrin*) 81 MG TABLET.DR 1 TAB PO DAILY HEART/BLOOD (Reported) Azithromycin (Zithromax) 250 MG TABLET 1 DP PO AD BRONCHITIS 2 the first day followed by 1 for days 2-5 Calcitriol 0.25 MCG CAPSULE 1 CAP PO DAILY BONES (Reported) Captopril 50 MG TABLET 1 TAB PO BID HEART (Reported) Cephalexin (Keflex) 500 MG CAPSULE 1 CAP PO TID uti Cholecalciferol (Vitamin D3) (Vitamin D3) 1,000 UNIT CAPSULE 1 CAP PO DAILY SUPPLEMENT (Reported) Diclofenac Sodium (Voltaren) 100 GM GEL..GRAM. 1 GM TOP 4 TIMES/DAY ARTHRITIS (Reported) apply to affected area(s) Escitalopram Oxalate 10 MG TABLET 1 TAB PO DAILY MENTAL HEALTH (Reported) Gabapentin 300 MG CAPSULE 1 CAP PO TID NERVE PAIN/MENTAL HEALTH (Reported) Humulin 70-30 (Humulin 70-30 Vial) 100 UNIT/1 ML VIAL 10 UNITS SC QAM AC Diabetes (Reported) Humulin 70-30 (Humulin 70-30 Vial) 100 UNIT/1 ML VIAL 8 UNIT SC QPM AC DIABETES (Reported) Hydroxyzine HCl (hydrOXYzine HCl) 50 MG TABLET 1 TAB PO TID PRN PRURITUS Lipase/Protease/Amylase (Zenpep Dr 40,000 Units Capsule) 40K-136K CAPSULE.DR 1 CAP PO TID PANCREASE (Reported) Magnesium Oxide (Magnesium) 400 MG CAPSULE 1 CAP PO DAILY MAG Methylprednisolone. (Medrol) 4 MG TAB.DS.PK 1 DP PO AD BRONCHITIS 6 on day 1 then reduce by one tablet daily until gone Nebivolol HCl (Bystolic) 20 MG TABLET 1 TAB PO DAILY BP (Reported) Omeprazole Magnesium (Prilosec Otc) 20 MG TABLET.DR 1 TAB PO BID GASTRITIS Ondansetron (Zofran Odt) 4 MG TAB.RAPDIS 1 TAB SL TID PRN NAUSEA Phenazopyridine HCl (Pyridium) 100 MG TABLET 1 TAB PO TID uti Potassium Chloride 20 MEQ TAB.ER.PRT 1 TAB PO DAILY SUPPLEMENT (Reported) Triage Note: "MY SUGAR IS HIGH AGAIN." REPORTS ACCUCHECK AT HOME 500'S, 402 IN TRIAGE. 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 REPORTS EATING PASTA THIS EVENING. AAOX4 AND SPEECH CLEAR. NO ACTIVE DISTRESS OR ABDOMINAL PAIN OR VOMITING. SKIN WARM. Triage Nurses Notes Reviewed? yes Onset: Gradual Duration: hour(s): Timing: recent history Injury Environment: home Severity: mild Modifying Factors: Improves With: rest. Associated Symptoms: "i FEEL FINE" HPI: 62 yo gentleman h/o diabetes, presents with elevated glucose to 500 after eating extra helpings of pasta and bread. He shares that he feels well. He took his regular 70/30 dose of insulin prior to arrival. He is otherwise well, without chest pain, diaphoresis, weakness, polyuria, polydipsia. Past History Travel History Traveled to [place] past 21 day No Medical History Any Pertinent Medical History? 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 No Review of Systems Review of Systems Constitutional: Reports: no symptoms. EENTM: Reports: no symptoms. Respiratory: Reports: no symptoms. Cardiovascular: Reports: no symptoms. GI: Reports: no symptoms. Genitourinary: Reports: no symptoms. Musculoskeletal: Reports: no symptoms. Skin: Reports: no symptoms. Neurological/Psychological: Reports: no symptoms. Hematologic/Endocrine: Reports: no symptoms. Immunologic/Allergic: Reports: no symptoms. All Other Systems: Reviewed and Negative Physical Exam Physical Exam General Appearance: well developed/nourished, no apparent distress, alert, comfortable Head: atraumatic, normal appearance, active bleeding Eyes: Bilateral: normal appearance, PERRL, EOMI. Ears, Nose, Throat: normal pharynx, normal ENT inspection Neck: normal inspection, supple, full range of motion Respiratory: normal breath sounds, chest non-tender, no respiratory distress, quiet respiration, lungs clear Cardiovascular: regular rate/rhythm Gastrointestinal: normal bowel sounds, soft, non-tender Back: normal inspection, normal range of motion Extremities: normal inspection, normal capillary refill, normal range of motion, no edema Neurologic/Psych: no motor/sensory deficits, awake, alert, oriented x 3 Skin: intact, normal color, warm/dry Core Measures ACS in differential dx? No CVA/TIA Diagnosis: No Sepsis Present: No Sepsis Focused Exam Completed? No Progress Differential Diagnoses I considered the following diagnoses in my evaluation of the patient: hyperglycemia vs other. Plan of Care: Orders Procedure Date/time Status FingerStick- Glucose 10/22 1933 Active Initial ED EKG: none Departure Departure Disposition: HOME OR SELF CARE Condition: Stable Clinical Impression Primary Impression: Hyperglycemia Referrals: Mehdi Lora MD (PCP/Family) Departure Forms: Customer Survey General Discharge Information Comments 10/22/17, 20:37... after regular insulin 10u... pt's glucose is 242... pt is awake and alert, ambulates well, safe for discharge. Critical Care Note Critical Care Note Critical Care Time: non-applicable
[2017-10-22 20:41] VITALS: BP 128/84
== END 2017-10-22 20:49 ==
LOC: ERH 19:29
DX: E11.65 Type 2 diabetes mellitus with hyperglycemia (principal)
CPT/HCPCS: 96372; J1815

== ENCOUNTER 2017-12-29 11:15 | Emergency (ER) | payer OTHER ==
[~2017-12-29] VITALS: Ht 170.2 cm; Wt 70.3 kg
[~2017-12-29 11:15] MED LIST changes: +TYLENOL EXTRA500 M2 PO; +ZENPEP DR 40,01 EAC1 PO; -ZENPEP DR 40,01 EACH PO
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
[2017-12-29] MEDS ORDERED: TRAMADOL HCL50 M1 PO (13:01)
[2017-12-29 13:09] VITALS: BP 135/83
== END 2017-12-29 13:09 ==
LOC: ERH 11:15
DX: S39.012A Strain of muscle, fascia and tendon of lower back, initial encounter (principal); M25.561 Pain in right knee; M25.562 Pain in left knee; V47.5XXA Car driver injured in collision with fixed or stationary object in traffic accident, initial encounter; Y92.9 Unspecified place or not applicable
CPT/HCPCS: 72050; 72100; 73562-LT; 73562-RT

== ENCOUNTER 2018-01-10 16:58 | Emergency (ER) | payer OTHER ==
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
--- NOTE | 2018-01-10 18:34 | ED GENERAL ADULT ---
History of Present Illness General Chief Complaint: General Adult Stated Complaint: NECK PAIN PER PT"CARROTIC"ARTERY IS BOTHERING ME Source: patient Exam Limitations: no limitations Vital Signs & Intake/Output Vital Signs & Intake/Output Vital Signs Date Time Temp Pulse Resp B/P B/P Pulse O2 O2 Flow FiO2 Mean Ox Delivery Rate 01/10 183 98.5 79 18 166/93 97 Room Air 01/10 1833 Room Air 01/10 1703 98.6 85 18 180/98 98 Room Air ED Intake and Output 01/11 0000 01/10 1200 Intake Total 0 Output Total Balance 0 Intake, Oral 0 Allergies Coded Allergies: No Known Allergies (12/21/17) Reconcile Medications Acetaminophen (Tylenol Extra Strength) 500 MG TABLET 650 MG PO PRN PRN PAIN ( Reported) Amlodipine Besylate 5 MG TABLET 1 TAB PO DAILY HEART (Reported) Aspirin (Ecotrin*) 81 MG TABLET.DR 1 TAB PO DAILY HEART/BLOOD (Reported) Calcitriol 0.25 MCG CAPSULE 1 CAP PO DAILY BONES (Reported) Captopril 50 MG TABLET 1 TAB PO BID HEART (Reported) Cholecalciferol (Vitamin D3) (Vitamin D3) 1,000 UNIT CAPSULE 1 CAP PO DAILY SUPPLEMENT (Reported) Diclofenac Sodium (Voltaren) 100 GM GEL..GRAM. 1 GM TOP 4 TIMES/DAY ARTHRITIS (Reported) apply to affected area(s) Escitalopram Oxalate 10 MG TABLET 1 TAB PO DAILY MENTAL HEALTH (Reported) Gabapentin 300 MG CAPSULE 1 CAP PO TID NERVE PAIN/MENTAL HEALTH (Reported) Humulin 70-30 (Humulin 70-30 Vial) 100 UNIT/1 ML VIAL 10 UNITS SC QAM AC Diabetes (Reported) Humulin 70-30 (Humulin 70-30 Vial) 100 UNIT/1 ML VIAL 8 UNIT SC QPM AC DIABETES (Reported) Ibuprofen 800 MG TABLET 1 TAB PO TID PRN PAIN Lipase/Protease/Amylase (Zenpep Dr 40,000 Unit Capsule) 40-126-168 CAPSULE.DR 1 CAP PO TID PANCREASE (Reported) Magnesium Oxide (Magnesium) 400 MG CAPSULE 1 CAP PO DAILY MAG Methocarbamol (Robaxin-750) 750 MG TABLET 1 TAB PO TID PRN PAIN Nebivolol HCl (Bystolic) 20 MG TABLET 1 TAB PO DAILY BP (Reported) Omeprazole Magnesium (Prilosec Otc) 20 MG TABLET.DR 1 TAB PO BID GASTRITIS Oxycodone HCl/Acetaminophen (Percocet 5-325 MG Tablet) 5 MG-325 MG TABLET 1 TAB PO PRN PRN SEVERE PAIN (Reported) Potassium Chloride 20 MEQ TAB.ER.PRT 1 TAB PO DAILY SUPPLEMENT (Reported) Tramadol HCl 50 MG TABLET 1-2 TAB PO BIDP PRN PAIN Triage Note: 62 YO MALE TO TRIAGE C/O "MY CAROTID ARTERY IS CLOGGED AND IT HURTS ME" STATES HE HAD AN OUTPATIENT US OF HIS CAROTID AND THEY TOLD HIM ITS CLOGGED. C/O PAIN TO L SIDE OF NECK X MONTHS Triage Nurses Notes Reviewed? yes Onset: Gradual Duration: week(s): (months) Timing: single episode today Injury Environment: home Severity: mild, moderate Severity Numbers: 6 No Modifying Factors: none HPI: 62-year-old male past medical history of diabetes, chronic back pain presents for evaluation of pain in his neck. Patient states she's had pain in the right and left anterior aspect of his neck for several months. He states that it'll come on randomly and then will go away. No trauma or known triggering event. Currently he has pain on the right anterior aspect of his neck. No swelling no difficulty swallowing or breathing. He states that he had an ultrasound of his carotid arteries that showed some stenosis and is concerned about them. He denies any changes in vision dizziness lightheadedness or one-sided weakness. No chest pain shortness of breath or fever. Has not taken any medicine for his pain. The pain is worse with movement and touching the area. Past History Travel History Traveled to [place] past 21 day No Medical History Any Pertinent Medical History? 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 No Review of Systems Review of Systems Constitutional: Reports: no symptoms. EENTM: Reports: no symptoms. Respiratory: Reports: no symptoms. Cardiovascular: Reports: no symptoms. GI: Reports: no symptoms. Genitourinary: Reports: no symptoms. Musculoskeletal: Reports: muscle pain, muscle stiffness, neck pain. Skin: Reports: no symptoms. Neurological/Psychological: Reports: no symptoms. Hematologic/Endocrine: Reports: no symptoms. Immunologic/Allergic: Reports: no symptoms. All Other Systems: Reviewed and Negative Physical Exam Physical Exam General Appearance: well developed/nourished, no apparent distress, alert, awake Head: atraumatic, normal appearance Eyes: Bilateral: normal appearance, PERRL, EOMI. Ears, Nose, Throat: normal pharynx, normal ENT inspection, hearing grossly normal Neck: normal inspection, supple, full range of motion, no carotid bruits, tenderness to palpation of the bilateral cervical paraspinous muscles no bruising swelling or abrasions no swelling in the anterior cervical lymph node chains no tenderness to palpation Respiratory: normal breath sounds, chest non-tender, no respiratory distress, lungs clear Cardiovascular: regular rate/rhythm, normal peripheral pulses Peripheral Pulses: 2+ carotid (R), 2+ carotid (L), 2+ radial (R), 2+ radial (L) Gastrointestinal: soft, non-tender Back: normal inspection, normal range of motion Extremities: normal inspection, normal range of motion, no edema Neurologic/Psych: no motor/sensory deficits, awake, oriented x 3, normal gait Skin: intact, normal color, warm/dry Core Measures ACS in differential dx? No CVA/TIA Diagnosis: No Sepsis Present: No Sepsis Focused Exam Completed? No Progress Differential Diagnoses I considered the following diagnoses in my evaluation of the patient: [Muscle strain, abscess, pharyngitis, carotid dissection] Plan of Care: Patient seen and evaluated. He is reporting chronic pain in his neck in the anterior aspect. Pain is reproducible with movement. No trauma triggering event. He had an ultrasound done of his carotid arteries several weeks ago which showed 50% stenosis. There was no worsening from previous study several years before. He is having no signs of stroke or carotid dissection. No carotid bruits. A CT scan of the neck was negative for any acute findings. Patient is tolerating fluids. He is medicated with Toradol here and is feeling better. He'll be given a prescription of Robaxin ago home with continue Tylenol and ibuprofen discussed return precautions follow-up with primary care doctor patient agrees. Diagnostic Imaging: Viewed by Me: CT Scan. Discussed w/RAD: CT Scan. Radiology Impression: PATIENT: MANJU ERICKSON PRESENT AGE: 62 PATIENT ACCOUNT NO: [id number] : 57 LOCATION: [facility] ORDERING PHYSICIAN: Enrrique PÉREZ SERVICE DATE: 01/10/18 EXAM TYPE: CAT - CT NECK WO IV CONTRAST EXAMINATION: CT NECK WITHOUT CONTRAST CLINICAL INFORMATION: Mass versus abscess. Anterior neck pain. COMPARISON: CT head and cervical spine 12/04/2017. TECHNIQUE: Director Surface Transportation images were obtained. A CT acquisition of the neck was performed without contrast. Data was reformatted into multiplanar images at the acquisition workstation. DLP: 572.74 mGy-cm FINDINGS: The diagnostic accuracy of this examination is limited due to the absence of intravenous contrast. Grossly there are no pathologically enlarged cervical lymph nodes. No mediastinal or axillary adenopathy is visualized within the [id number] of this examination. The nasopharyngeal and oropharyngeal mucosal spaces are grossly symmetric. Parapharyngeal and retromaxillary fat is preserved. Executive Secretary Social Welfare spaces are symmetric. There is a punctate calcification within the left submandibular gland best illustrated on axial image 55 of 117 series 4. Otherwise no abnormal calcification along the expected course of the submandibular ducts. A few tiny caliber indications are also visualized within or adjacent to the left parotid tail. The oral tongue, tongue base, and epiglottis are normal. Preepiglottic fat is preserved. Glottic and subglottic airways are grossly patent. The thyroid gland is normal and the remainder of the visualized visceral soft tissues are normal. Lung apices are clear. The aortic arch apex is unremarkable. Atheromatous calcification involves both carotid bifurcations. The carotid spaces are otherwise unremarkable. There is no acute osseous finding. Specifically no worrisome lytic or blastic osseous lesion. There is multilevel degenerative spondylosis of the cervical spine. Mastoid air cells and middle ear cavities are well-aerated. No active paranasal sinus disease. Limited visualization of intracranial structures reveals no abnormal finding. IMPRESSION: The diagnostic accuracy of this examination is limited due to the absence of intravenous contrast. Of note there is a punctate calcification within the left submandibular gland that presumably represents a tiny sialolith. A few other tiny calcifications are visualized within the left parotid tail. Otherwise unremarkable examination. Grossly no worrisome soft tissue mass or adenopathy. DICTATED BY: J Luis HARRIS,Temo Mak DATE/TIME DICTATED :01/10/181805 PROFESSIONAL BASS FISHERMAN:VY DATE/TIME TRANSCRIBED:01/10/181805 CONFIDENTIAL, DO NOT COPY WITHOUT APPROPRIATE AUTHORIZATION. Initial ED EKG: none Departure Departure Disposition: HOME OR SELF CARE Condition: Stable Clinical Impression Primary Impression: Neck pain Referrals: Cholo PÉREZ,Samanta Garcia (PCP/Family) Additional Instructions: TAKE ROBAXIN NEEDED FOR PAIN. ALSO TYLENOL/IBUPROFEN. FOLLOW UP WIOTH YOUR PCP FOR A RECHECK. RETURN WITH ANY CONCERNS. Departure Forms: Customer Survey General Discharge Information Prescriptions: Current Visit Scripts Methocarbamol (Robaxin-750) 1 TAB PO TID PRN PAIN #30 TAB Critical Care Note Critical Care Note Critical Care Time: non-applicable
[2018-01-10] MEDS ORDERED: ROBAXIN-750750 M1 PO (18:36)
[2018-01-10 18:38] VITALS: BP 166/93
[2018-01-27] MEDS ORDERED: ZOFRAN ODT4 M1 SL (15:58)
[2018-01-27] MEDS ORDERED: PEPCID20 M1 PO (15:58)
== END 2018-01-10 18:39 ==
LOC: ERH 16:58
DX: M54.2 Cervicalgia (principal)
CPT/HCPCS: 96372; J1885

== ENCOUNTER 2018-03-13 08:41 | Emergency (ER) | payer OTHER ==
[~2018-03-13] VITALS: Ht 170.2 cm; Wt 70.3 kg
[~2018-03-13 08:41] MED LIST changes: +PEPCID20 M1 PO; +ROBAXIN-750750 M1 PO
[2018-03-13 09:46] LABS: PT 10.6 SEC (9.4-12.5); PTT 30 SEC (25-37)
[2018-03-13 09:48] LABS: ABSOLUTE BASOPHIL COUNT 0 /CUMM (0.0-0.2); ABSOLUTE EOSINOPHIL COUNT 0.2 /CUMM (0.0-0.7); ABSOLUTE GRANULOCYTE CT 4.4 /CUMM (1.4-6.5); ABSOLUTE LYMPH COUNT 1.2 /CUMM (1.2-3.4); ABSOLUTE MONOCYTE COUNT 0.7 /CUMM (0.10-0.60); BASOPHIL % 0.4 % (0.0-2.0); EOSINOPHIL % 2.3 % (0-5); GRANULOCYTE % 67.4 % (42.2-75.2); HEMATOCRIT 40.4 % (42-52); MEAN CORPUSCULAR HGB 30.8 PG (27.0-31.0); MEAN CORPUSCULAR VOLUME 93.3 FL (80.0-94.0); MEAN PLATELET VOLUME 9.7 FL (7.4-10.4); PLATELET COUNT 203 /CUMM (130-400); RBC DISTRIBUTION WIDTH 13.4 % (11.5-14.5); RED BLOOD CELL CT 4.33 /CUMM (4.70-6.10); WHITE BLOOD CELL COUNT 6.6 /CUMM (4.8-10.8)
--- NOTE | 2018-03-13 11:16 | ED GENERAL ADULT ---
History of Present Illness General Chief Complaint: General Adult Stated Complaint: RECTAL BLEEDING Source: patient Exam Limitations: no limitations Vital Signs & Intake/Output Vital Signs & Intake/Output Vital Signs Date Time Temp Pulse Resp B/P B/P Pulse O2 O2 Flow FiO2 Mean Ox Delivery Rate 03/13 1135 98.1 78 16 157/86 97 Room Air 03/13 1130 Room Air 03/13 0842 98.5 72 15 162/92 97 Room Air Room Air Allergies Coded Allergies: No Known Allergies (03/13/18) Reconcile Medications Acetaminophen (Tylenol Extra Strength) 500 MG TABLET 650 MG PO PRN PRN PAIN ( Reported) Amlodipine Besylate 5 MG TABLET 1 TAB PO DAILY HEART (Reported) Aspirin (Ecotrin*) 81 MG TABLET.DR 1 TAB PO DAILY HEART/BLOOD (Reported) Calcitriol 0.25 MCG CAPSULE 1 CAP PO DAILY BONES (Reported) Captopril 50 MG TABLET 1 TAB PO BID HEART (Reported) Cholecalciferol (Vitamin D3) (Vitamin D3) 1,000 UNIT CAPSULE 1 CAP PO DAILY SUPPLEMENT (Reported) Diclofenac Sodium (Voltaren) 100 GM GEL..GRAM. 1 GM TOP 4 TIMES/DAY ARTHRITIS (Reported) apply to affected area(s) Docusate Sodium (Colace) 100 MG CAPSULE 1 CAP PO BID constipation Escitalopram Oxalate 10 MG TABLET 1 TAB PO DAILY MENTAL HEALTH (Reported) Famotidine (Pepcid) 20 MG TABLET 1 TAB PO BID gastritis Gabapentin 300 MG CAPSULE 1 CAP PO TID NERVE PAIN/MENTAL HEALTH (Reported) Humulin 70-30 (Humulin 70-30 Vial) 100 UNIT/1 ML VIAL 10 UNITS SC QAM AC Diabetes (Reported) Humulin 70-30 (Humulin 70-30 Vial) 100 UNIT/1 ML VIAL 8 UNIT SC QPM AC DIABETES (Reported) Ibuprofen 800 MG TABLET 1 TAB PO TID PRN PAIN Lipase/Protease/Amylase (Zenpep Dr 40,000 Unit Capsule) 40-126-168 CAPSULE.DR 1 CAP PO TID PANCREASE (Reported) Magnesium Oxide (Magnesium) 400 MG CAPSULE 1 CAP PO DAILY MAG Methocarbamol (Robaxin-750) 750 MG TABLET 1 TAB PO TID PRN PAIN Nebivolol HCl (Bystolic) 20 MG TABLET 1 TAB PO DAILY BP (Reported) Omeprazole Magnesium (Prilosec Otc) 20 MG TABLET.DR 1 TAB PO BID GASTRITIS Ondansetron (Zofran Odt) 4 MG TAB.RAPDIS 1 TAB SL TID PRN nausea Oxycodone HCl/Acetaminophen (Percocet 5-325 MG Tablet) 5 MG-325 MG TABLET 1 TAB PO PRN PRN SEVERE PAIN (Reported) Potassium Chloride 20 MEQ TAB.ER.PRT 1 TAB PO DAILY SUPPLEMENT (Reported) Tramadol HCl 50 MG TABLET 1-2 TAB PO BIDP PRN PAIN Triage Note: PT TO ED FOR C/C OF RECTAL BLEEDING SINCE THIS MORNING, DENIES ABD PAIN OR RECTAL PAIN. DENIES ABD PAIN/N/V. ONLY HAD ONE EPISODE TODAY. DENIES BLOOD THINNERS. Triage Nurses Notes Reviewed? yes Onset: Abrupt Duration: hour(s): Timing: single episode today HPI: 62-year-old male with a history of diabetes, hypertension, and constipation presenting with one episode of rectal bleeding this morning. Patient reports that he had a nonpainful bowel movement, and then noticed bright red blood on the toilet paper. There was no blood in the stool or toilet water. Patient is not currently on any bowel regimen for his constipation. Denies fevers, abdominal pain, rectal pain, melena, chest pain, shortness of breath. Patient reports that he has had colonoscopies with Dr. Rick in the past, is unsure when his last one was, but states they have all been unremarkable in the past. (Vernell Buckner) Past History Travel History Traveled to [place] past 21 day No Medical History Any Pertinent Medical History? 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 No (Vernell Buckner) Review of Systems Review of Systems Constitutional: Reports: no symptoms. EENTM: Reports: no symptoms. Respiratory: Reports: no symptoms. Cardiovascular: Reports: no symptoms. GI: Reports: see HPI. Genitourinary: Reports: no symptoms. Musculoskeletal: Reports: no symptoms. Skin: Reports: no symptoms. Neurological/Psychological: Reports: no symptoms. Hematologic/Endocrine: Reports: no symptoms. Immunologic/Allergic: Reports: no symptoms. (Vernell Buckner) Physical Exam Physical Exam General Appearance: well developed/nourished, no apparent distress, alert, awake , comfortable Head: atraumatic, normal appearance Eyes: Bilateral: normal appearance. Neck: normal inspection Respiratory: normal breath sounds, lungs clear Cardiovascular: regular rate/rhythm Gastrointestinal: soft, non-tender Rectal: normal exam, heme negative stool (brown stool), no external hemorrhoids or anal fissures, no rectal tenderness to palpation on digital exam Extremities: normal inspection Neurologic/Psych: awake, alert, oriented x 3, normal gait, normal mood/affect Skin: intact, normal color, warm/dry Core Measures ACS in differential dx? No CVA/TIA Diagnosis: No Sepsis Present: No Sepsis Focused Exam Completed? No (Vernell Buckner) Progress Differential Diagnoses I considered the following diagnoses in my evaluation of the patient: [External hemorrhoids versus anal fissures versus internal hemorrhoids versus diverticulosis versus polyps versus colon cancer versus anemia] Plan of Care: Orders Procedure Date/time Status MISTAKE 03/13 911 Active PARTIAL THROMBOPLASTIN TIME 03/13 911 Complete PROTHROMBIN TIME 03/13 911 Complete COMPREHENSIVE METABOLIC PANEL 03/13 911 Complete CBC WITHOUT DIFFERENTIAL 03/13 911 Complete Laboratory Tests 03/13/18 0925: Anion Gap 11, Estimated GFR 41 L, BUN/Creatinine Ratio 9.4, Glucose 130 H, Calcium 9.8, Total Bilirubin 0.4, AST 64 H, ALT 67, Alkaline Phosphatase 108, Total Protein 6.4, Albumin 3.9, Globulin 2.5, Albumin/Globulin Ratio 1.6, PT 10.6, INR 0.97, APTT 30, CBC w Diff NO MAN DIFF REQ, RBC 4.33 L, MCV 93.3, MCH 30.8, MCHC 33.0, RDW 13.4, MPV 9.7, Gran % 67.4, Lymphocytes % 18.5 L, Monocytes % 11.4 H, Eosinophils % 2.3, Basophils % 0.4, Absolute Granulocytes 4.4, Absolute Lymphocytes 1.2, Absolute Monocytes 0.7 H, Absolute Eosinophils 0.2, Absolute Basophils 0 Patient has no active bleeding on exam. There is no obvious source of his prior bleeding. His H&H is within normal limits. Vital signs are within normal limits. Patient is well-appearing, and not orthostatic with walking. Cleared for discharge and instructed to follow-up with Dr. Rick for reevaluation. Given Rx Colace to prevent future constipation. Given strict return precautions. Initial ED EKG: none (Vernell Buckner) Departure Departure Disposition: HOME OR SELF CARE Condition: Stable Clinical Impression Primary Impression: Rectal bleeding Referrals: Kacy HARRIS,Santiago PÉREZ,Samanta Garcia (PCP/Family) Additional Instructions: Take Colace as prescribed. Follow-up with Dr. Rick for reevaluation. Return to the emergency department for any new or worsening symptoms. Departure Forms: Customer Survey General Discharge Information Prescriptions: Current Visit Scripts Docusate Sodium (Colace) 1 CAP PO BID #60 CAP (Vernell Buckner) PA/NETWORK MGR Co-Sign Statement Statement: ED Attending supervision documentation- x I saw and evaluated the patient. I have also reviewed all the pertinent lab results and diagnostic results. I agree with the findings and the plan of care as documented in the PA's/NETWORK MGR's documentation. [] I have reviewed the ED Record and agree with the PA's/NETWORK MGR's documentation. [] Additions or exceptions (if any) to the PAs/NETWORK MGR's note and plan are summarized below: [] (Jaky HARRIS,Constantino) Critical Care Note Critical Care Note Critical Care Time: non-applicable (Vernell Buckner)
[2018-03-13] MEDS ORDERED: COLACE100 M1 PO (11:28)
[2018-03-13 11:35] VITALS: BP 157/86
== END 2018-03-13 11:36 ==
LOC: ERH 08:41
PROVIDERS: Physician Assistant Medical
DX: K62.5 Hemorrhage of anus and rectum (principal)